=== PATIENT | male | born 1975 | race Caucasian/White ===

== ENCOUNTER 2019-02-19 12:42 | Emergency (ER) | payer BC ==
[2019-02-19] MEDS ORDERED: Sodium Chloride 0.9% 10 ML Syringe FLUSH PRN (12:50)
[2019-02-19] MEDS ORDERED: HYDROmorphone 1 MG/ML Syringe IVPUSH ONE (12:50)
[2019-02-19] MEDS ORDERED: Alum Hydrox/Mag Hydrox/Simeth 30 ML, Lidocaine 2% 15 ML PO ONE ×2 (12:51)
[2019-02-19] MEDS ORDERED: Famotidine 20 MG/2 ML SDV IVPUSH ONE (12:51)
[2019-02-19 12:54] VITALS: BP 161/140; PULSE 86
--- NOTE | 2019-02-19 14:02 | CR ---
Chest: 2 views of the chest were obtained. Comparison: No previous chest x-ray is available. Heart size and mediastinum are normal. Lungs are clear with no acute parenchymal change. Slight degenerative change is scattered within the spine. Impression: 1. Nothing acute is seen on 2 view chest x-ray. Diagnostic code #1 This report was dictated in [place] Standard Time
--- NOTE | 2019-02-19 14:38 | EDM.PDOC ---
ED HPI GENERAL MEDICAL PROBLEM - General Chief Complaint: Chest Pain Stated Complaint: [facility] Time Seen by Provider: 02/19/19 12:45 Source of Information: Reports: Patient, EMS, Provider History Limitations: Reports: No Limitations - History of Present Illness INITIAL COMMENTS - FREE TEXT/NARRATIVE: The patient presents by [facility] from the occupational health clinic for chest pain. The patient was traveling to a follow up appointment for his elbow when he developed chest pain. He has shortness of breath with it. The pain is in the mid chest and to the left. It is pressure like and sharp. He has no fever, chills or cough. He has no history of PA. He has no history of hypertension or hypercholesterolemia. The patient quit smoking yesterday. He had to negative EKGs at the clinic. He got aspirin, morphine and nitro by EMS. Onset: Gradual Duration: Hour(s): Location: Reports: Chest Quality: Reports: Pressure, Sharp Severity: Severe Improves with: Reports: None Worsens with: Reports: None Associated Symptoms: Reports: Chest Pain, Shortness of Breath. Denies: Cough, Fever/Chills, Headaches, Nausea/Vomiting Middle Chest Pain Score (Numeric/FACES): 9 - Related Data Allergies Allergy/AdvReac Type Severity Reaction Status Date / Time No Known Allergies Allergy Verified 02/19/19 12:54 Home Meds: Home Meds Sulindac 150 mg PO BID #20 tablet 02/19/19 [Rx] Past Medical History - Past Health History Medical/Surgical History: Denies Medical/Surgical History HEENT History: Reports: Hard of Hearing Genitourinary History: Reports: Renal Calculus Musculoskeletal History: Reports: Fracture (nose, ribs, fingers, and bilateral tibias) Neurological History: Reports: Other (See Below) Other Neuro History: childhood menengitis Endocrine/Metabolic History: Reports: Obesity/BMI 30+ - Infectious Disease History Infectious Disease History: Reports: Meningitis - Past Surgical History HEENT Surgical History: Reports: Tonsillectomy, Other (See Below) Other HEENT Surgeries/Procedures: mastoid removal GI Surgical History: Reports: ERCP Musculoskeletal Surgical History: Reports: Other (See Below) Other Musculoskeletal Surgeries/Procedures:: knee surgery Social & Family History - Family History Family Medical History: Noncontributory - Tobacco Use Smoking Status *Q: Current Every Day Smoker Years of Tobacco use: 4 Packs/Tins Daily: 0.5 - Caffeine Use Caffeine Use: Reports: Soda Caffeine Use Comment: occationally - Recreational Drug Use Recreational Drug Use: No - Living Situation & Occupation Living situation: Reports: , with Spouse, with Family (2 kids) Occupation: Employed ([employer]) ED ROS GENERAL - Review of Systems Review Of Systems: See Below Constitutional: Reports: No Symptoms HEENT: Reports: No Symptoms Respiratory: Reports: Shortness of Breath Cardiovascular: Reports: Chest Pain Endocrine: Reports: No Symptoms GI/Abdominal: Reports: No Symptoms : Reports: No Symptoms Musculoskeletal: Reports: No Symptoms Skin: Reports: No Symptoms ED EXAM, GENERAL - Physical Exam Exam: See Below Exam Limited By: No Limitations General Appearance: Alert, No Apparent Distress Ears: Normal External Exam Nose: Normal Inspection Head: Atraumatic, Normocephalic Neck: Normal Inspection Respiratory/Chest: No Respiratory Distress, Lungs Clear, Normal Breath Sounds Cardiovascular: Regular Rate, Rhythm, No Edema, No Murmur GI/Abdominal: Soft, Non-Tender, No Organomegaly, No Mass Back Exam: Normal Inspection Extremities: Normal Inspection EKG INTERPRETATION EKG Date: 02/19/19 Time: 12:45 Rhythm: Other (Sinus tachycardia) Rate (Beats/Min): 107 [place]: Normal P-Wave: Present QRS: Normal ST-T: Normal QT: Normal Course - Vital Signs Last Recorded V/S: Last Vital Signs Temp 97.5 F 02/19/19 12:47 Pulse 86 02/19/19 12:47 Resp 20 02/19/19 12:47 BP 161/140 H 02/19/19 12:47 Pulse Ox 96 02/19/19 12:47 - Orders/Labs/Meds Orders: Active Orders 24 hr Category Date Time Status Cardiac Monitoring [RC] . DIRECTED Care 02/19/19 12:50 Active EKG Documentation Completion [RC] ASDIRECTED Care 02/19/19 14:38 Active EKG Documentation Completion [RC] ASDIRECTED Care 02/19/19 14:39 Inactive Oxygen Therapy [RC] PRN Care 02/19/19 12:50 Active Peripheral IV Care [RC] . DIRECTED Care 02/19/19 12:50 Active Sodium Chloride 0.9% [Saline Flush] Med 02/19/19 12:50 Active 10 ml FLUSH ASDIRECTED PRN Peripheral IV Insertion Adult [OM.PC] Stat Oth 02/19/19 12:50 Ordered EKG 12 Lead [EK] Stat Ther 02/19/19 14:38 Ordered EKG 12 Lead [EK] Stat Ther 02/19/19 14:39 Stop Req Medication Orders Sodium Chloride (Saline Flush) 10 ml FLUSH ASDIRECTED PRN PRN Reason: Keep Vein Open Last Admin: 02/19/19 13:10 Dose: 10 ml Labs: Laboratory Tests 02/19/19 02/19/19 02/19/19 Range/Units 13:55 13:55 13:55 WBC 7.10 (4.23-9.07) K/mm3 RBC 4.46 L (4.63-6.08) M/mm3 Hgb 14.1 (13.7-17.5) gm/dl Hct 41.0 (40.1-51.0) % MCV 91.9 (79.0-92.2) fl MCH 31.6 (25.7-32.2) pg MCHC 34.4 (32.2-35.5) g/dl RDW Std Deviation 39.9 (35.1-43.9) fL Plt Count 266 (163-337) K/mm3 MPV 9.5 (9.4-12.3) fl Neut % (Auto) 57.7 (34.0-67.9) % Lymph % (Auto) 29.9 (21.8-53.1) % [place] % (Auto) 8.5 (5.3-12.2) % Eos % (Auto) 3.2 (0.8-7.0) Baso % (Auto) 0.4 (0.1-1.2) % Neut # (Auto) 4.10 (1.78-5.38) K/mm3 Lymph # (Auto) 2.12 (1.32-3.57) K/mm3 [place] # (Auto) 0.60 (0.30-0.82) K/mm3 Eos # (Auto) 0.23 (0.04-0.54) K/mm3 Baso # (Auto) 0.03 (0.01-0.08) K/mm3 D-Dimer, Quantitative 0.21 (0.19-0.50) mg/L Sodium 139 (136-145) mEq/L Potassium 3.8 (3.5-5.1) mEq/L Chloride 103 (98-107) mEq/L Carbon Dioxide 29 (21-32) mEq/L Anion Gap 10.8 (5-15) BUN 13 (7-18) mg/dL Creatinine 0.8 (0.7-1.3) mg/dL Est Cr Clr Drug Dosing 135.57 mL/min Estimated GFR (MDRD) > 60 (>60) mL/min BUN/Creatinine Ratio 16.3 (14-18) Glucose 110 H (74-106) mg/dL Calcium 8.9 (8.5-10.1) mg/dL Total Bilirubin 0.2 (0.2-1.0) mg/dL AST 14 L (15-37) U/L ALT 48 (16-63) U/L Alkaline Phosphatase 56 (46-116) U/L Troponin I < 0.017 (0.00-0.056) ng/mL Total Protein 7.0 (6.4-8.2) g/dl Albumin 3.8 (3.4-5.0) g/dl Globulin 3.2 gm/dL Albumin/Globulin Ratio 1.2 (1-2) 02/19/19 Range/Units 15:36 WBC (4.23-9.07) K/mm3 RBC (4.63-6.08) M/mm3 Hgb (13.7-17.5) gm/dl Hct (40.1-51.0) % MCV (79.0-92.2) fl MCH (25.7-32.2) pg MCHC (32.2-35.5) g/dl RDW Std Deviation (35.1-43.9) fL Plt Count (163-337) K/mm3 MPV (9.4-12.3) fl Neut % (Auto) (34.0-67.9) % Lymph % (Auto) (21.8-53.1) % [place] % (Auto) (5.3-12.2) % Eos % (Auto) (0.8-7.0) Baso % (Auto) (0.1-1.2) % Neut # (Auto) (1.78-5.38) K/mm3 Lymph # (Auto) (1.32-3.57) K/mm3 [place] # (Auto) (0.30-0.82) K/mm3 Eos # (Auto) (0.04-0.54) K/mm3 Baso # (Auto) (0.01-0.08) K/mm3 D-Dimer, Quantitative (0.19-0.50) mg/L Sodium (136-145) mEq/L Potassium (3.5-5.1) mEq/L Chloride (98-107) mEq/L Carbon Dioxide (21-32) mEq/L Anion Gap (5-15) BUN (7-18) mg/dL Creatinine (0.7-1.3) mg/dL Est Cr Clr Drug Dosing mL/min Estimated GFR (MDRD) (>60) mL/min BUN/Creatinine Ratio (14-18) Glucose (74-106) mg/dL Calcium (8.5-10.1) mg/dL Total Bilirubin (0.2-1.0) mg/dL AST (15-37) U/L ALT (16-63) U/L Alkaline Phosphatase (46-116) U/L Troponin I < 0.017 (0.00-0.056) ng/mL Total Protein (6.4-8.2) g/dl Albumin (3.4-5.0) g/dl Globulin gm/dL Albumin/Globulin Ratio (1-2) Meds: Medications Generic Name Dose Route Start Last Admin Trade Name Freq PRN Reason Stop Dose Admin Sodium Chloride 10 ml 02/19/19 12:50 02/19/19 13:10 Saline Flush FLUSH 10 ml ASDIRECTED PRN Administration Keep Vein Open Discontinued Medications Generic Name Dose Route Start Last Admin Trade Name Freq PRN Reason Stop Dose Admin Al Hydroxide/Mg Hydroxide 30 0 ml 02/19/19 12:51 02/19/19 13:08 ml/ Lidocaine HCl 15 ml PO 02/19/19 12:52 45 ml ONETIME ONE Administration Famotidine 20 mg 02/19/19 12:51 02/19/19 13:08 Pepcid IVPUSH 02/19/19 12:52 20 mg ONETIME ONE Administration Fentanyl 100 mcg 02/19/19 16:52 02/19/19 17:04 Sublimaze IVPUSH 02/19/19 16:53 100 mcg ONETIME ONE Administration Glucagon 1 mg 02/19/19 18:38 02/19/19 18:57 Glucagen IVPUSH 02/19/19 18:39 1 mg ONETIME ONE Administration Hydromorphone HCl 1 mg 02/19/19 12:50 02/19/19 13:09 Dilaudid IVPUSH 02/19/19 12:51 1 mg ONETIME ONE Administration Hydromorphone HCl 0.5 mg 02/19/19 14:59 02/19/19 15:18 Dilaudid IVPUSH 02/19/19 15:00 0.5 mg ONETIME ONE Administration Lorazepam 1 mg 02/19/19 14:39 02/19/19 15:17 Ativan IVPUSH 02/19/19 14:40 1 mg ONETIME ONE Administration Sulindac 150 mg 02/19/19 18:38 02/19/19 18:58 Clinoril PO 02/19/19 18:39 150 mg ONETIME ONE Administration - Re-Assessments/Exams Free Text/Narrative Re-Assessment/Exam: 02/19/19 14:37 I ordered an IV saline lock, EKG, CXR, labs, dilaudid 1mg IV. His EKG shows a NSR with no acute changes. His CXR looks good. His CBC and CMP look good. His troponin and D-dimer are negative. 02/19/19 19:07 He had more pain so I ordered another EKG and that looks good. I also ordered a repeat troponin and that looks good. He says his pain is not any better so I gave him some fentanyl. I also gave him pepcid and a GI cocktail. I do not feel this is cardiac. The patient says he will not leave until the pain is gone. I gave him some ativan. I consulted Dr Parker and she came to see the patient and she agreed that that this is not his heart or his lungs but chest wall pain. She recommended some glucogon and sulindac and antiinflammatory. I will discharge him home. Departure - Departure Time of Disposition: 19:15 Disposition: Home, Self-Care 01 Condition: Good Clinical Impression: Chest wall pain Prescriptions: Sulindac 150 mg PO BID #20 tablet Referrals: PCP,None [Primary Care Provider] - Kate Morales PA-C [Physician Special Police Officer] - 1 Week Forms: ED Department Discharge Additional Instructions: Take the sulindac 2 times per day for 10 days. Take the medicine with food. It may upset your stomach. Follow up with your doctor or Kate Morales within a week. Please return if you are worse. - My Orders Last 24 Hours: My Active Orders 02/19/19 12:50 Cardiac Monitoring [RC] . DIRECTED Oxygen Therapy [RC] PRN Peripheral IV Care [RC] . DIRECTED Sodium Chloride 0.9% [Saline Flush] 10 ml FLUSH ASDIRECTED PRN Peripheral IV Insertion Adult [OM.PC] Stat 02/19/19 14:38 EKG Documentation Completion [RC] ASDIRECTED EKG 12 Lead [EK] Stat 02/19/19 14:39 EKG Documentation Completion [RC] ASDIRECTED EKG 12 Lead [EK] Stat - Assessment/Plan Last 24 Hours: My Active Orders 02/19/19 12:50 Cardiac Monitoring [RC] . DIRECTED Oxygen Therapy [RC] PRN Peripheral IV Care [RC] . DIRECTED Sodium Chloride 0.9% [Saline Flush] 10 ml FLUSH ASDIRECTED PRN Peripheral IV Insertion Adult [OM.PC] Stat 02/19/19 14:38 EKG Documentation Completion [RC] ASDIRECTED EKG 12 Lead [EK] Stat 02/19/19 14:39 EKG Documentation Completion [RC] ASDIRECTED EKG 12 Lead [EK] Stat
[2019-02-19] MEDS ORDERED: LORazepam 2 MG/ML SDV IVPUSH ONE (14:39)
[2019-02-19] MEDS ORDERED: HYDROmorphone 0.5 MG/0.5 ML Syringe IVPUSH ONE (14:59)
[2019-02-19] MEDS ORDERED: fentaNYL 100 MCG/2 ML SDV IVPUSH ONE (16:52)
[2019-02-19] MEDS ORDERED: Glucagon,Human Recombinant 1 MG Vial IVPUSH ONE (18:38)
== END 2019-02-19 19:33 | disposition home or self-care (01) ==
LOC: JD.ED 12:42
DX: R07.89 Other chest pain (principal); E66.9 Obesity, unspecified; Z68.35 Body mass index [BMI] 35.0-35.9, adult; Z87.891 Personal history of nicotine dependence
CPT/HCPCS: 36415; 71046; 80053; 84484; 85025; 85379; 93005; 96374; 96375; 96376; 99285; A9270; J1170; J1610; J2060; J3010; J3490; 93010; 99284

== ENCOUNTER 2019-08-31 19:37 | Emergency (ER) | payer OTHER, BC ==
[2019-08-31] MEDS ORDERED: Morphine 4 MG/ML Syringe IM ONE (20:00)
[2019-08-31 20:03] VITALS: BP 151/90; PULSE 88
--- NOTE | 2019-08-31 20:43 | EDM.PDOC ---
ED HPI GENERAL MEDICAL PROBLEM - General Chief Complaint: Upper Extremity Injury/Pain Stated Complaint: left hand injury at work caught between valve Time Seen by Provider: 08/31/19 19:46 Source of Information: Reports: Patient History Limitations: Reports: No Limitations - History of Present Illness INITIAL COMMENTS - FREE TEXT/NARRATIVE: TRIAGE NOTE -- Pt got his hand slammed between a tank and a valve at 1700 today. Swelling and pain to the top of hand and states he cannot move his fingers. Numbness and tingling to index and pointer finger. [ End ] The injury happened about 2 hours prior to arrival. No readily identified risk factors otherwise. No treatment or other intervention or measures to moderate symptoms prior to arrival. As noted the patient complains of the swelling and inability to move his fingers apparently due to pain. Left Hand Pain Score (Numeric/FACES): 9 - Related Data Allergies Allergy/AdvReac Type Severity Reaction Status Date / Time No Known Allergies Allergy Verified 08/31/19 19:54 Home Meds: Home Meds oxyCODONE HCl/Acetaminophen [Percocet 7.5-325 mg Tablet] 1 each PO Q6H PRN #12 tablet 08/31/19 [Rx] Past Medical History - Past Health History Medical/Surgical History: Denies Medical/Surgical History HEENT History: Reports: Hard of Hearing Genitourinary History: Reports: Renal Calculus Musculoskeletal History: Reports: Fracture Neurological History: Reports: Other (See Below) Other Neuro History: childhood menengitis Endocrine/Metabolic History: Reports: Obesity/BMI 30+ - Infectious Disease History Infectious Disease History: Reports: Chicken Pox, Measles, Mumps - Past Surgical History HEENT Surgical History: Reports: Tonsillectomy, Other (See Below) Other HEENT Surgeries/Procedures: mastoid removal GI Surgical History: Reports: ERCP Musculoskeletal Surgical History: Reports: Other (See Below) Other Musculoskeletal Surgeries/Procedures:: knee surgery Social & Family History - Family History Family Medical History: Noncontributory - Tobacco Use Smoking Status *Q: Former Smoker Used Tobacco, but Quit: Yes Month/Year Tobacco Last Used: 10 years ago - Caffeine Use Caffeine Use: Reports: Coffee Caffeine Use Comment: occationally - Recreational Drug Use Recreational Drug Use: No - Living Situation & Occupation Living situation: Reports: , with Spouse, with Family (2 kids) Occupation: Employed ([employer]) Review of Systems - Review of Systems Review Of Systems: Comprehensive ROS is negative, except as noted in HPI. ED EXAM, GENERAL - Physical Exam Exam: See Below Exam Limited By: No Limitations General Appearance: Alert, WD/WN, No Apparent Distress (But quite uncomfortable) Eye Exam: Bilateral Eye: EOMI, PERRL Ears: Normal External Exam Nose: Normal Inspection Throat/Mouth: Normal Inspection Head: Atraumatic, Normocephalic Neck: Normal Inspection, Supple Respiratory/Chest: No Respiratory Distress, Lungs Clear, Normal Breath Sounds Cardiovascular: Regular Rate, Rhythm GI/Abdominal: Soft, Non-Tender Back Exam: Normal Inspection Extremities: Normal Inspection (Except as noted below), Other (Left hand is quite edematous across the dorsum. No gross deformity. No instability noted. No obvious tendon deficit. Extremity is warm. No ecchymosis. No broken skin. Any movement of the fingers except for the thumb quite painful for the patient. Adequate capillary refill normal color of the extremity.) Neurological: Alert, Oriented, Normal Cognition, No Motor/Sensory Deficits Psychiatric: Normal Affect, Normal Mood Skin Exam: Warm, Dry Course - Vital Signs Last Recorded V/S: Last Vital Signs Temp 37.2 C 08/31/19 19:55 Pulse 88 08/31/19 19:55 Resp 16 08/31/19 19:55 BP 151/90 H 08/31/19 19:55 Pulse Ox 97 08/31/19 19:55 - Orders/Labs/Meds Orders: Active Orders 24 hr Category Date Time Status Hand Comp Min 3V Lt [CR] Stat Exams 08/31/19 19:55 Taken Labs: Laboratory Tests 08/31/19 08/31/19 Range/Units 20:43 20:43 WBC 7.45 (4.23-9.07) K/mm3 RBC 4.36 L (4.63-6.08) M/mm3 Hgb 13.9 (13.7-17.5) gm/dl Hct 40.4 (40.1-51.0) % MCV 92.7 H (79.0-92.2) fl MCH 31.9 (25.7-32.2) pg MCHC 34.4 (32.2-35.5) g/dl RDW Std Deviation 42.1 (35.1-43.9) fL Plt Count 264 (163-337) K/mm3 MPV 9.9 (9.4-12.3) fl Neutrophils % (Manual) 42 (40-60) % Band Neutrophils % 0 (0-10) % Lymphocytes % (Manual) 40 (20-40) % Atypical Lymphs % 3 % Monocytes % (Manual) 10 (2-10) % Eosinophils % (Manual) 4 (0.8-7.0) % Basophils % (Manual) 1 (0.2-1.2) Platelet Estimate Adequate RBC Morph Comment Normal Sodium 143 (136-145) mEq/L Potassium 3.8 (3.5-5.1) mEq/L Chloride 105 (98-107) mEq/L Carbon Dioxide 30 (21-32) mEq/L Anion Gap 11.8 (5-15) BUN 18 (7-18) mg/dL Creatinine 1.0 (0.7-1.3) mg/dL Est Cr Clr Drug Dosing 108.46 mL/min Estimated GFR (MDRD) > 60 (>60) mL/min BUN/Creatinine Ratio 18.0 (14-18) Glucose 112 H (74-106) mg/dL Calcium 8.8 (8.5-10.1) mg/dL Total Bilirubin 0.4 (0.2-1.0) mg/dL AST 30 (15-37) U/L ALT 45 (16-63) U/L Alkaline Phosphatase 63 (46-116) U/L CK-MB (CK-2) 3.5 (0-3.6) ng/ml Total Protein 7.4 (6.4-8.2) g/dl Albumin 4.1 (3.4-5.0) g/dl Globulin 3.3 gm/dL Albumin/Globulin Ratio 1.2 (1-2) Meds: Medications Discontinued Medications Generic Name Dose Route Start Last Admin Trade Name Freq PRN Reason Stop Dose Admin Morphine Sulfate 4 mg 08/31/19 20:00 08/31/19 20:16 Morphine IM 08/31/19 20:01 4 mg ONETIME ONE Administration - Re-Assessments/Exams Free Text/Narrative Re-Assessment/Exam: 08/31/19 21:53 The patient has a crush injury of his left hand. There is no open wound and no obvious fracture on x-ray. No salient lab abnormals, CK is within the reference range. Discussed fully with patient. Patient placed in bulky dressing. Keep cold pack in place for 24 hours at least. Keep hand elevated above level of heart. Referred to orthopedist. See instructions below. Departure - Departure Time of Disposition: 21:58 Disposition: Home, Self-Care 01 Condition: Good Clinical Impression: Crushing injury of left hand excluding fingers - Discharge Information *PRESCRIPTION DRUG MONITORING PROGRAM REVIEWED*: Not Applicable *COPY OF PRESCRIPTION DRUG MONITORING REPORT IN PATIENT LIZBETH: Not Applicable Prescriptions: oxyCODONE HCl/Acetaminophen [Percocet 7.5-325 mg Tablet] 1 each PO Q6H PRN #12 tablet PRN Reason: Pain (Moderate 4-6) Referrals: PCP,None [Primary Care Provider] - Preston Garcia MD [Physician] - Forms: ED Department Discharge Additional Instructions: You have been seen for a crush injury of your left hand. There is no obvious fracture on x-ray and we will notify you if radiologist identifies something that we had not noticed tonight. Keep the bulky dressing in place on your hand. Keep your hand elevated above the level of the heart. Keep the cold pack in place for at least 24 hours. You have been referred to the orthopedist document control assistant. Call in the morning and arrange follow-up. It is very important that you have follow-up to make sure that there is not going to be a complication such as infection setting and in the hand. If there is redness increased pain any increased swelling or if there is no incremental resolution of the pain and swelling return to ER or seek attention from your orthopedist but have it taken care off and be seen right away for that kind of problem. Also if there is fever or any other symptom of acute illness return to ER right away. Sepsis Event Note (ED) - Evaluation Sepsis Screening Result: No Definite Risk - Focused Exam Vital Signs: Vital Signs Temp Pulse Resp BP Pulse Ox 08/31/19 19:55 37.2 C 88 16 151/90 H 97 - My Orders Last 24 Hours: My Active Orders 08/31/19 19:55 Hand Comp Min 3V Lt [CR] Stat - Assessment/Plan Last 24 Hours: My Active Orders 08/31/19 19:55 Hand Comp Min 3V Lt [CR] Stat
[2019-08-31] MEDS ORDERED: Ketorolac 60 MG/2 ML SDV IM ONE (22:02)
--- NOTE | 2019-09-01 08:37 | CR ---
Left hand: 4 views of the left hand were obtained. Comparison: No prior hand exam. Soft tissue swelling is identified. Deformity is identified within the base of the proximal phalanx of the thumb most likely relating to old injury. No acute fracture, dislocation or other bony abnormality is appreciated. Impression: 1. Soft tissue swelling. 2. Old appearing injury as noted above within the thumb. 3. No acute bony abnormality is appreciated. Diagnostic code #2 This report was dictated in MDT
== END 2019-08-31 22:11 | disposition home or self-care (01) ==
LOC: JD.ED 19:37
DX: S67.22XA Crushing injury of left hand, initial encounter (principal); E66.9 Obesity, unspecified; Z68.36 Body mass index [BMI] 36.0-36.9, adult; Z87.891 Personal history of nicotine dependence; W23.0XXA Caught, crushed, jammed, or pinched between moving objects, initial encounter
CPT/HCPCS: 36415; 73130; 80053; 82553; 85007; 85027; 96372; 99284; J1885; J2270; 99283

== ENCOUNTER 2020-02-05 19:46 | Emergency (ER) | payer BC, OTHER ==
[2020-02-05 19:58] VITALS: BP 159/90; PULSE 100
[2020-02-05] MEDS ORDERED: Ondansetron 4 MG/2 ML SDV IVPUSH ONE (20:12)
[2020-02-05] MEDS ORDERED: HYDROmorphone 0.5 MG/0.5 ML Syringe IVPUSH ONE ×2 (20:13→21:02)
[2020-02-05] MEDS ORDERED: Ketorolac 30 MG/ML SDV IVPUSH ONE (20:13)
[2020-02-05] MEDS ORDERED: Sodium Chloride 0.9% 1,000 ML IV SCH (20:15)
--- NOTE | 2020-02-05 20:23 | EDM.PDOC ---
ED HPI GENERAL MEDICAL PROBLEM - General Chief Complaint: Flank Pain Stated Complaint: POSSIBLE KIDNEY STONE Time Seen by Provider: 02/05/20 19:55 Source of Information: Reports: Patient History Limitations: Reports: No Limitations - History of Present Illness INITIAL COMMENTS - FREE TEXT/NARRATIVE: This is a 44-year-old male. He had onset of right flank pain about 630 this ev ening that has progressively worsened. He has a history of kidney stones in the past on the right side. He has had no nausea and vomiting no fever. He does have some mild burning on urination he is noted over the last day. He says the pains about a 9 out of 10 and he appears to be uncomfortable standing and bending over leaning on the bed. He denies any other acute symptoms. He states he just got over a Covid about 4 weeks ago. Right Flank Pain Score (Numeric/FACES): 9 - Related Data Allergies Allergy/AdvReac Type Severity Reaction Status Date / Time No Known Allergies Allergy Verified 02/05/20 19:57 Home Meds: Home Meds Orphenadrine [Norflex] 100 mg PO BID PRN #12 tab 02/05/20 [Rx] Past Medical History - Past Health History Medical/Surgical History: Denies Medical/Surgical History HEENT History: Reports: Hard of Hearing Genitourinary History: Reports: Renal Calculus Musculoskeletal History: Reports: Fracture Neurological History: Reports: Other (See Below) Other Neuro History: childhood menengitis Endocrine/Metabolic History: Reports: Obesity/BMI 30+ - Infectious Disease History Infectious Disease History: Reports: Chicken Pox, Measles, Mumps, Novel Coronavirus - Past Surgical History HEENT Surgical History: Reports: Tonsillectomy, Other (See Below) Other HEENT Surgeries/Procedures: mastoid removal GI Surgical History: Reports: ERCP Musculoskeletal Surgical History: Reports: Other (See Below) Other Musculoskeletal Surgeries/Procedures:: knee surgery Social & Family History - Family History Family Medical History: No Pertinent Family History - Tobacco Use Tobacco Use Status *Q: Never Tobacco User Second Hand Smoke Exposure: No - Caffeine Use Caffeine Use: Reports: None Caffeine Use Comment: occationally - Recreational Drug Use Recreational Drug Use: No - Living Situation & Occupation Living situation: Reports: , with Spouse, with Family (2 kids) Occupation: Employed ([employer]) ED ROS GENERAL - Review of Systems Review Of Systems: See Below Constitutional: Denies: Fever, Chills HEENT: Reports: No Symptoms Respiratory: Denies: Shortness of Breath, Cough Cardiovascular: Reports: No Symptoms Endocrine: Reports: No Symptoms GI/Abdominal: Denies: Abdominal Pain, Diarrhea, Nausea, Vomiting : Reports: No Symptoms Musculoskeletal: Reports: No Symptoms Skin: Reports: No Symptoms Neurological: Reports: No Symptoms Psychiatric: Reports: No Symptoms Hematologic/Lymphatic: Reports: No Symptoms ED EXAM, RENAL/ - Physical Exam Exam: See Below Exam Limited By: No Limitations General Appearance: Alert, WD/WN, Mild Distress Eye Exam: Bilateral Eye: Normal Inspection Ears: Normal External Exam Nose: Normal Inspection Throat/Mouth: Normal Voice, No Airway Compromise Head: Normocephalic Neck: Supple Respiratory/Chest: No Respiratory Distress, Lungs Clear, Normal Breath Sounds Cardiovascular: Regular Rate, Rhythm, No Murmur GI/Abdominal: Soft, Other (Obese) Back Exam: Normal Inspection, Full Range of Motion, Other (Positive CVAT on the right but not on the left) Extremities: Normal Inspection, Normal Range of Motion Neurological: Alert, Oriented Psychiatric: Normal Affect, Normal Mood Skin Exam: Warm, Dry Course - Vital Signs Last Recorded V/S: Last Vital Signs Temp Pulse 100 02/05/20 19:55 Resp 16 02/05/20 19:55 BP 159/90 H 02/05/20 19:55 Pulse Ox 96 02/05/20 19:55 - Orders/Labs/Meds Orders: Active Orders 24 hr Category Date Time Status Abdomen Pelvis wo Cont [CT] Stat Exams 02/05/20 20:14 Taken Sodium Chloride 0.9% [Normal Saline] 1,000 ml Med 02/05/20 20:15 Active IV ASDIRECTED Medication Orders Sodium Chloride (Normal Saline) 1,000 mls @ 1,000 mls/hr IV ASDIRECTED CHERRI Last Admin: 02/05/20 20:19 Dose: 1,000 mls/hr Documented by: CHRISTINE Labs: Laboratory Tests 02/05/20 02/05/20 Range/Units 20:23 20:34 WBC 5.78 (4.23-9.07) K/mm3 RBC 4.25 L (4.63-6.08) M/mm3 Hgb 13.3 L (13.7-17.5) gm/dl Hct 39.2 L (40.1-51.0) % MCV 92.2 (79.0-92.2) fl MCH 31.3 (25.7-32.2) pg MCHC 33.9 (32.2-35.5) g/dl RDW Std Deviation 41.3 (35.1-43.9) fL Plt Count 236 (163-337) K/mm3 MPV 10.2 (9.4-12.3) fl Neut % (Auto) 54.1 (34.0-67.9) % Lymph % (Auto) 29.1 (21.8-53.1) % [place] % (Auto) 11.8 (5.3-12.2) % Eos % (Auto) 4.3 (0.8-7.0) Baso % (Auto) 0.5 (0.1-1.2) % Neut # (Auto) 3.13 (1.78-5.38) K/mm3 Lymph # (Auto) 1.68 (1.32-3.57) K/mm3 [place] # (Auto) 0.68 (0.30-0.82) K/mm3 Eos # (Auto) 0.25 (0.04-0.54) K/mm3 Baso # (Auto) 0.03 (0.01-0.08) K/mm3 Urine Color Yellow (Yellow) Urine Appearance Slt cloudy H (Clear) Urine pH 7.0 (5.0-8.0) Ur Specific Graham 1.025 (1.005-1.030) Urine Protein Negative (Negative) Urine Glucose (UA) Negative (Negative) Urine Ketones Negative (Negative) Urine Occult Blood 2+ H (Negative) Urine Nitrite Negative (Negative) Urine Bilirubin Negative (Negative) Urine Urobilinogen 0.2 (0.2-1.0) Ur Leukocyte Esterase Negative (Negative) Urine RBC 40-50 H (0-5) /hpf Urine WBC 0-5 (0-5) /hpf Ur Squamous Epith Cells 0-5 (0-5) /hpf Urine Bacteria Few (FEW) /hpf Urine Mucus Few (FEW) /hpf Meds: Medications Generic Name Dose Route Start Last Admin Trade Name Freq PRN Reason Stop Dose Admin Sodium Chloride 1,000 mls @ 1,000 mls/hr 02/05/20 20:15 02/05/20 20:19 Normal Saline IV 1,000 mls/hr ASDIRECTED CHERRI Administration Discontinued Medications Generic Name Dose Route Start Last Admin Trade Name Phuong PRN Reason Stop Dose Admin Hydromorphone HCl 0.5 mg 02/05/20 20:13 02/05/20 20:21 Dilaudid IVPUSH 02/05/20 20:14 0.5 mg ONETIME ONE Administration Hydromorphone HCl 0.5 mg 02/05/20 21:02 02/05/20 21:07 Dilaudid IVPUSH 02/05/20 21:03 0.5 mg ONETIME ONE Administration Ketorolac Tromethamine 30 mg 02/05/20 20:13 02/05/20 20:20 Toradol IVPUSH 02/05/20 20:14 30 mg ONETIME ONE Administration Ondansetron HCl 4 mg 02/05/20 20:12 02/05/20 20:20 Zofran IVPUSH 02/05/20 20:13 4 mg ONETIME ONE Administration - Radiology Interpretation Free Text/Narrative:: CT scan of the abdomen and pelvis does not show any kidney stones. No hydronephrosis noted or perinephric stranding. No stones. - Re-Assessments/Exams Free Text/Narrative Re-Assessment/Exam: 02/05/20 21:52 Spoke to the patient regarding the CT scan. It looks like from his urine that he has passed a stone. I will give him a urine strainer so he can capture the stone when he urinates in the meantime he is to drink lots of fluids and take it easy for the next day. 02/05/20 22:12 The patient is having some muscle spasms in the back as well I will provide a muscle relaxer. He is to strain his urine with a urine strainer that I give him to capture the stone. Departure - Departure Time of Disposition: 22:12 Disposition: Home, Self-Care 01 Condition: Fair Clinical Impression: Right flank pain, Renal colic on right side, Muscle spasm of back Hematuria Qualifiers: Hematuria type: unspecified type Qualified Code(s): R31.9 - Hematuria, unspecified - Discharge Information *PRESCRIPTION DRUG MONITORING PROGRAM REVIEWED*: Not Applicable *COPY OF PRESCRIPTION DRUG MONITORING REPORT IN PATIENT LIZBETH: Not Applicable Prescriptions: Orphenadrine [Norflex] 100 mg PO BID PRN #12 tab PRN Reason: Spasms Instructions: Muscle Cramps and Spasms, [id number], Renal Colic, [id number] Referrals: PCP,None [Primary Care Provider] - Forms: ED Department Discharge, ED Return to Work/School Form Additional Instructions: Drink lots of fluids over the next few days to flush your kidneys, strain your urine with a urine strainer, for your back spasms take the Norflex twice a day but just be careful about driving because it can make you sleepy, follow-up with your family doctor later this week if needed. Sepsis Event Note (ED) - Evaluation Sepsis Screening Result: No Definite Risk - Focused Exam Vital Signs: Vital Signs Pulse Resp BP Pulse Ox 02/05/20 19:55 100 16 159/90 H 96 - My Orders Last 24 Hours: My Active Orders 02/05/20 20:14 Abdomen Pelvis wo Cont [CT] Stat 02/05/20 20:15 Sodium Chloride 0.9% [Normal Saline] 1,000 ml IV ASDIRECTED - Assessment/Plan Last 24 Hours: My Active Orders 02/05/20 20:14 Abdomen Pelvis wo Cont [CT] Stat 02/05/20 20:15 Sodium Chloride 0.9% [Normal Saline] 1,000 ml IV ASDIRECTED
--- NOTE | 2020-02-07 12:54 | CT ---
PROCEDURE INFORMATION: Exam: CT Abdomen And Pelvis Without Contrast Exam date and time: 02/05/2020 8:30 PM Age: 44 years old Clinical indication: Abdominal pain; Acute; Patient HX: Right flank pain onset today with HX of kidney stones, dizziness with movement TECHNIQUE: Imaging protocol: Computed tomography of the abdomen and pelvis without contrast. COMPARISON: No relevant prior studies available. FINDINGS: Lungs: There are no suspicious pulmonary nodules or areas of lung consolidation. Liver: There is mild fatty liver replacement. Gallbladder and bile ducts: No calcified gallstones. No ductal dilation. Pancreas: The pancreatic parenchyma is normal in bulk and sharply marginated. Duct is not dilated. No calcifications, masses, or abnormal fluid collections. Spleen: Spleen is normal in size. No mass or fluid collection. Adrenal glands: There are no adrenal masses. Kidneys and ureters: Normal in parenchymal bulk. No hydronephrosis or asymmetric perinephric stranding. No solid masses. No stones. Stomach and bowel: No significant abnormalities of the stomach. There are no dilated or thickened small bowel loops. Gas and stool are seen in the colon to the rectum. No mass. Appendix: The appendix is seen. It is normal. Intraperitoneal space: No ascites. No abscess. No inflammation within the intra- abdominal fat. No pneumoperitoneum. No mass. Vasculature: No aneurysm. Lymph nodes: There are no enlarged celiac, mesenteric, periportal, extraperitoneal or inguinal lymph nodes. Urinary bladder: There is no bladder wall thickening, mass, or calculus. Reproductive: Prostate gland is normal in size. The seminal vesicles are unremarkable. Bones/joints: Age appropriate. No acute fracture. No dislocation. There are no suspicious lytic or osteosclerotic lesions. Soft tissues: See "Intraperitoneal space" finding. IMPRESSION: 1. No sign of acute intra-abdominal pathology. 2. There is mild fatty liver replacement. Thank you for allowing us to participate in the care of your patient. Dictated and Authenticated by: Devin Dye MD 02/05/2020 9:59 PM Central Time ([place] & [place]) [facility]
== END 2020-02-05 22:27 | disposition home or self-care (01) ==
LOC: JD.ED 19:46
DX: N23 Unspecified renal colic (principal); M62.830 Muscle spasm of back; R31.9 Hematuria, unspecified; E66.9 Obesity, unspecified; Z68.35 Body mass index [BMI] 35.0-35.9, adult
CPT/HCPCS: 36415; 74176; 81001; 85025; 96374; 96375; 96376; 99284; J1170; J1885; J2405; J7030

== ENCOUNTER 2020-02-09 10:57 | Emergency (ER) | payer BC ==
[2020-02-09 11:08] VITALS: BP 153/110; PULSE 85
[2020-02-09] MEDS ORDERED: Aspirin 81 MG Tab.Chew PO ONE (11:22)
--- NOTE | 2020-02-09 11:29 | EDM.PDOC ---
ED HPI GENERAL MEDICAL PROBLEM - General Chief Complaint: Chest Pain Stated Complaint: CHEST PAIN Time Seen by Provider: 02/09/20 11:05 Source of Information: Reports: Patient, RN Notes Reviewed History Limitations: Reports: No Limitations - History of Present Illness INITIAL COMMENTS - FREE TEXT/NARRATIVE: Patient is a 44 year old male presenting to the ER with c/o intermittent chest pain since Friday. He was seen in this ER on Friday for a kidney stone which he is still having pain with as well. He states that he awoke Friday morning with midsternal chest pain which radiated into his left chest and arm. This episode lasted about 15 minute and the resolved. He had a similar episode Friday evening. He did well on Friday and Friday, but states that he awoke with pain again this morning. The episode lasted about 15 minutes and he has had one other episode today. Pain was not initially present upon arrival to ER, however, during my exam the pain did recur. He describes in as a sharp cramping sensation that shoots across his chest. States it "feels like someone snapped him with a rubberband". Pain is worsened by deep breathing but chest wall is not tender to palpation. He denies any cardiac history or a hx of GERD. Left Chest Pain Score (Numeric/FACES): 8 - Related Data Allergies Allergy/AdvReac Type Severity Reaction Status Date / Time No Known Allergies Allergy Verified 02/09/20 11:08 Home Meds: Home Meds Orphenadrine [Norflex] 100 mg PO BID PRN #12 tab 02/05/20 [Rx] Acetaminophen/HYDROcodone [[place] 325-5 MG] 1 tab PO Q4H PRN #10 tablet 02/09/20 [Rx] Naproxen [Naprosyn] 500 mg PO Q12HR 5 Days #10 tab 02/09/20 [Rx] Ondansetron [Zofran ODT] 4 mg PO Q6H PRN #10 tab.dis 02/09/20 [Rx] Orphenadrine [Norflex] 100 mg PO BID PRN #10 tab 02/09/20 [Rx] Past Medical History - Past Health History Medical/Surgical History: Denies Medical/Surgical History HEENT History: Reports: Hard of Hearing Genitourinary History: Reports: Renal Calculus Musculoskeletal History: Reports: Fracture Neurological History: Reports: Other (See Below) Other Neuro History: childhood menengitis Endocrine/Metabolic History: Reports: Obesity/BMI 30+ - Infectious Disease History Infectious Disease History: Reports: Chicken Pox, Measles, Mumps, Novel Coronavirus - Past Surgical History HEENT Surgical History: Reports: Tonsillectomy, Other (See Below) Other HEENT Surgeries/Procedures: mastoid removal GI Surgical History: Reports: ERCP Musculoskeletal Surgical History: Reports: Other (See Below) Other Musculoskeletal Surgeries/Procedures:: knee surgery Social & Family History - Family History Family Medical History: No Pertinent Family History - Tobacco Use Tobacco Use Status *Q: Never Tobacco User - Caffeine Use Caffeine Use: Reports: None Caffeine Use Comment: occationally - Recreational Drug Use Recreational Drug Use: No - Living Situation & Occupation Living situation: Reports: , with Spouse, with Family (2 kids) Occupation: Employed ([employer]) ED ROS GENERAL - Review of Systems Review Of Systems: See Below Constitutional: Reports: Diaphoresis. Denies: Fever, Chills, Weakness HEENT: Reports: No Symptoms Respiratory: Reports: No Symptoms. Denies: Shortness of Breath, Cough Cardiovascular: Reports: Chest Pain. Denies: Dyspnea on Exertion, Lightheadedness, Syncope Endocrine: Reports: No Symptoms GI/Abdominal: Reports: No Symptoms : Reports: Flank Pain Musculoskeletal: Reports: No Symptoms Skin: Reports: No Symptoms Neurological: Reports: No Symptoms Psychiatric: Reports: No Symptoms Hematologic/Lymphatic: Reports: No Symptoms Immunologic: Reports: No Symptoms ED EXAM, GENERAL - Physical Exam Exam: See Below Exam Limited By: No Limitations General Appearance: Alert, WD/WN, No Apparent Distress Respiratory/Chest: No Respiratory Distress, Lungs Clear, Normal Breath Sounds, No Accessory Muscle Use, Chest Non-Tender Cardiovascular: Normal Peripheral Pulses, Regular Rate, Rhythm, No Edema, No Gallop, No JVD, No Murmur, No Rub GI/Abdominal: Normal Bowel Sounds, Soft, Non-Tender, No Organomegaly, No Distention, No Abnormal Bruit, No Mass Neurological: Alert, Oriented, CN II-XII Intact, Normal Cognition, Normal Gait, Normal Reflexes, No Motor/Sensory Deficits Psychiatric: Normal Affect, Normal Mood Skin Exam: Warm, Dry, Intact, Normal Color, No Rash #1 Interpretation EKG Date: 02/09/20 Time: 11:06 Rhythm: NSR Rate (Beats/Min): 90 Doran: Normal P-Wave: Present QRS: Normal ST-T: Normal QT: Normal Course - Vital Signs Last Recorded V/S: Last Vital Signs Temp 97.7 F 02/09/20 11:04 Pulse 85 02/09/20 11:04 Resp 16 02/09/20 11:04 BP 153/110 H 02/09/20 11:04 Pulse Ox 94 L 02/09/20 11:04 - Orders/Labs/Meds Labs: Laboratory Tests 02/09/20 02/09/20 02/09/20 Range/Units 11:10 11:10 11:10 WBC 5.61 (4.23-9.07) K/mm3 RBC 4.47 L (4.63-6.08) M/mm3 Hgb 14.1 (13.7-17.5) gm/dl Hct 40.4 (40.1-51.0) % MCV 90.4 (79.0-92.2) fl MCH 31.5 (25.7-32.2) pg MCHC 34.9 (32.2-35.5) g/dl RDW Std Deviation 41.0 (35.1-43.9) fL Plt Count 262 (163-337) K/mm3 MPV 10.2 (9.4-12.3) fl Neut % (Auto) 53.7 (34.0-67.9) % Lymph % (Auto) 29.2 (21.8-53.1) % [place] % (Auto) 12.5 H (5.3-12.2) % Eos % (Auto) 4.1 (0.8-7.0) Baso % (Auto) 0.5 (0.1-1.2) % Neut # (Auto) 3.01 (1.78-5.38) K/mm3 Lymph # (Auto) 1.64 (1.32-3.57) K/mm3 [place] # (Auto) 0.70 (0.30-0.82) K/mm3 Eos # (Auto) 0.23 (0.04-0.54) K/mm3 Baso # (Auto) 0.03 (0.01-0.08) K/mm3 D-Dimer, Quantitative 0.33 (0.19-0.50) mg/L Sodium 138 (136-145) mEq/L Potassium 3.4 L (3.5-5.1) mEq/L Chloride 101 (98-107) mEq/L Carbon Dioxide 25 (21-32) mEq/L Anion Gap 15.4 H (5-15) BUN 20 H (7-18) mg/dL Creatinine 0.9 (0.7-1.3) mg/dL Est Cr Clr Drug Dosing 119.24 mL/min Estimated GFR (MDRD) > 60 (>60) mL/min BUN/Creatinine Ratio 22.2 H (14-18) Glucose 99 (74-106) mg/dL Calcium 9.0 (8.5-10.1) mg/dL Magnesium 2.0 (1.8-2.4) mg/dl Total Bilirubin 0.6 (0.2-1.0) mg/dL AST 48 H (15-37) U/L ALT 77 H (16-63) U/L Alkaline Phosphatase 70 (46-116) U/L Troponin I < 0.017 (0.00-0.056) ng/mL C-Reactive Protein 0.2 (<1.0) mg/dL Total Protein 8.1 (6.4-8.2) g/dl Albumin 4.4 (3.4-5.0) g/dl Globulin 3.7 gm/dL Albumin/Globulin Ratio 1.2 (1-2) 02/08/ Range/Units 13:30 WBC (4.23-9.07) K/mm3 RBC (4.63-6.08) M/mm3 Hgb (13.7-17.5) gm/dl Hct (40.1-51.0) % MCV (79.0-92.2) fl MCH (25.7-32.2) pg MCHC (32.2-35.5) g/dl RDW Std Deviation (35.1-43.9) fL Plt Count (163-337) K/mm3 MPV (9.4-12.3) fl Neut % (Auto) (34.0-67.9) % Lymph % (Auto) (21.8-53.1) % [place] % (Auto) (5.3-12.2) % Eos % (Auto) (0.8-7.0) Baso % (Auto) (0.1-1.2) % Neut # (Auto) (1.78-5.38) K/mm3 Lymph # (Auto) (1.32-3.57) K/mm3 [place] # (Auto) (0.30-0.82) K/mm3 Eos # (Auto) (0.04-0.54) K/mm3 Baso # (Auto) (0.01-0.08) K/mm3 D-Dimer, Quantitative (0.19-0.50) mg/L Sodium (136-145) mEq/L Potassium (3.5-5.1) mEq/L Chloride (98-107) mEq/L Carbon Dioxide (21-32) mEq/L Anion Gap (5-15) BUN (7-18) mg/dL Creatinine (0.7-1.3) mg/dL Est Cr Clr Drug Dosing mL/min Estimated GFR (MDRD) (>60) mL/min BUN/Creatinine Ratio (14-18) Glucose (74-106) mg/dL Calcium (8.5-10.1) mg/dL Magnesium (1.8-2.4) mg/dl Total Bilirubin (0.2-1.0) mg/dL AST (15-37) U/L ALT (16-63) U/L Alkaline Phosphatase (46-116) U/L Troponin I < 0.017 (0.00-0.056) ng/mL C-Reactive Protein (<1.0) mg/dL Total Protein (6.4-8.2) g/dl Albumin (3.4-5.0) g/dl Globulin gm/dL Albumin/Globulin Ratio (1-2) Meds: Medications Discontinued Medications Generic Name Dose Route Start Last Admin Trade Name Freq PRN Reason Stop Dose Admin Aspirin 324 mg 02/09/20 11:22 02/09/20 11:43 Aspirin PO 02/09/20 11:23 324 mg ONETIME ONE Administration Al Hydroxide/Mg Hydroxide 30 0 ml 02/09/20 11:54 02/09/20 12:02 ml/ Lidocaine HCl 15 ml PO 02/09/20 11:55 45 ml ONETIME ONE Administration Famotidine 20 mg 02/09/20 12:29 02/09/20 13:05 Pepcid IVPUSH 02/09/20 12:30 20 mg ONETIME ONE Administration Hydromorphone HCl 0.5 mg 02/09/20 11:48 02/09/20 12:01 Dilaudid IVPUSH 02/09/20 11:49 0.5 mg ONETIME ONE Administration Hydromorphone HCl 0.5 mg 02/09/20 12:30 02/09/20 13:03 Dilaudid IVPUSH 02/09/20 12:31 0.5 mg ONETIME ONE Administration Hydromorphone HCl 0.5 mg 02/09/20 14:15 02/09/20 14:34 Dilaudid IVPUSH 02/09/20 14:16 0.5 mg ONETIME ONE Administration Influenza Virus Vaccine 60 mcg 02/09/20 11:30 02/09/20 11:44 Fluzone Quad 0722-1879 Syringe IM 02/09/20 11:31 60 mcg .ONCE ONE Administration Ketorolac Tromethamine 30 mg 02/09/20 11:54 02/09/20 11:59 Toradol IVPUSH 02/09/20 11:55 30 mg ONETIME ONE Administration Lorazepam 0.5 mg 02/09/20 13:38 02/09/20 14:04 Ativan IVPUSH 02/09/20 13:39 0.5 mg ONETIME ONE Administration Ondansetron HCl 4 mg 02/09/20 11:48 02/09/20 11:59 Zofran IVPUSH 02/09/20 11:49 4 mg ONETIME ONE Administration Orphenadrine Citrate 100 mg 02/09/20 14:15 02/09/20 14:34 Norflex PO 100 mg BID CHERRI Administration - Re-Assessments/Exams Free Text/Narrative Re-Assessment/Exam: Patient is a 44-year-old male presenting to the emergency department with complaints of intermittent midsternal chest pain that "shoots across "his left chest. He has had a number of episodes of the last few days. He woke around 7 AM this morning with an episode last about 15 minutes. Symptoms did recur at the time of my exam. He has no cardiac history. Denies any history of GERD. I have ordered CBC, CMP, CRP, D-dimer, troponin, EKG, chest x-ray. Will give aspirin 324 mg. 02/09/20 1200 Patient continues to have chest discomfort. Work-up has been grossly unremarkable. Troponin less than 0.017, D-dimer 0.33, chest x-ray is unremarkable, EKG is normal. I have ordered Dilaudid 0.5 mg IV, Zofran 4 mg IV, Toradol 30 mg IV, and a GI cocktail. 02/09/20 1230 Patient continues to have pain despite the medications previously given. I have ordered Pepcid 20 mg IV as well as an additional Dilaudid 0.5 mg. He states that he feels like his stomach is turning. Review of his CT scan of the abdomen pelvis completed 4 days ago shows no aneurysms. We will complete repeat troponin at 1330. 02/09/20 14:29 Repeat troponin was also negative at less than 0.017. Patient continues to complain of discomfort and pain with breathing. Have ordered Ativan 0.5 mg IV as well as Dilaudid 0.5 mg IV and Norflex 100 mg p.o. We will let him eat some lunch and then reassess his pain. 02/09/20 15:41 Patient had some improvement in symptoms of the previous medications given. He was able to eat lunch without difficulty. Does still have some discomfort in his chest. I will write a prescription for Naprosyn, Zofran, Norflex, and [place]. Discussed return precautions. Discharge instructions as documented. Departure - Departure Time of Disposition: 15:41 Disposition: Home, Self-Care 01 Condition: Good Clinical Impression: Non-cardiac chest pain Prescriptions: Naproxen [Naprosyn] 500 mg PO Q12HR 5 Days #10 tab Acetaminophen/HYDROcodone [[place] 325-5 MG] 1 tab PO Q4H PRN #10 tablet PRN Reason: Pain Orphenadrine [Norflex] 100 mg PO BID PRN #10 tab PRN Reason: Muscle Spasm Ondansetron [Zofran ODT] 4 mg PO Q6H PRN #10 tab.dis PRN Reason: Nausea/Vomiting Instructions: Nonspecific Chest Pain, Adult, [id number] Referrals: PCP,None [Primary Care Provider] - Forms: ED Department Discharge, ED Return to Work/School Form Additional Instructions: You were seen in the emergency department today for intermittent chest pain over the course the last 3 days. Your work-up included blood work, an EKG of your heart, and a chest x-ray. Results of your work-up were found to be normal. You are not having a heart attack and did not have a blood clot in your lungs. As we discussed, the cause your pain is likely musculoskeletal in nature (muscle spasms/inflammation). While in the ER, you received a number of pain medications, as well as Zofran for nausea and Ativan for anxiety. A prescription for Naprosyn for pain, [place] for pain, Norflex which is a muscle relaxer, and Zofran for nausea has been sent to [facility]. Take these medications as prescribed. I would also recommend that you begin taking omeprazole, which is an antacid, daily. This may be purchased [id number]. Applying heat to your chest will often help improve the symptoms. If you experience worsening pain that does not improve with the medications provided, recommend that you return to the emergency department or follow-up in the clinic for reevaluation. Sepsis Event Note (ED) - Evaluation Sepsis Screening Result: No Definite Risk
[2020-02-09] MEDS ORDERED: FLU VACC QS2020-21(6MOS UP)/PF 60 MCG/0.5 ML SYRINGE IM ONE (11:30)
[2020-02-09] MEDS ORDERED: Ondansetron 4 MG/2 ML SDV IVPUSH ONE (11:48)
[2020-02-09] MEDS ORDERED: HYDROmorphone 0.5 MG/0.5 ML Syringe IVPUSH ONE ×3 (11:48→14:15)
[2020-02-09] MEDS ORDERED: Ketorolac 30 MG/ML SDV IVPUSH ONE (11:54)
[2020-02-09] MEDS ORDERED: Alum Hydrox/Mag Hydrox/Simeth 30 ML, Lidocaine 2% 15 ML PO ONE ×2 (11:54)
[2020-02-09] MEDS ORDERED: Famotidine 20 MG/2 ML SDV IVPUSH ONE (12:29)
--- NOTE | 2020-02-09 12:46 | CR ---
PROCEDURE INFORMATION: Exam: XR Chest, 2 Views Exam date and time: 02/09/2020 11:21 AM Age: 44 years old Clinical indication: Chest pain; Type not specified TECHNIQUE: Imaging protocol: XR of the chest Views: 2 views. COMPARISON: No relevant prior studies available. FINDINGS: Lungs: The lungs are normally expanded and clear. Pleural space: Normal. Heart/Mediastinum: Normal heart and cardiomediastinal silhouette. Vasculature: Normal pulmonary vessel caliber. Normal aorta. Bones/joints: The bones are intact. IMPRESSION: No acute disease or suspicious finding. Thank you for allowing us to participate in the care of your patient. Dictated and Authenticated by: Marcos Chauhan MD 02/09/2020 1:30 PM Central Time ([place] & [place]) [facility]
[2020-02-09] MEDS ORDERED: LORazepam 2 MG/ML SDV IVPUSH ONE (13:38)
[2020-02-09] MEDS ORDERED: Orphenadrine 100 MG Tab.ER PO SCH (14:15)
== END 2020-02-09 16:00 | disposition home or self-care (01) ==
LOC: JD.ED 10:57
DX: R07.89 Other chest pain (principal); E66.9 Obesity, unspecified; Z23 Encounter for immunization; Z68.37 Body mass index [BMI] 37.0-37.9, adult; Z79.899 Other long term (current) drug therapy
CPT/HCPCS: 36415; 71046; 80053; 83735; 84484; 85025; 85379; 86140; 90471; 90686; 93005; 96374; 96375; 96376; 99285; A9270; J1170; J1885; J2060; J2405; J3490; 93010; 99284; G0008

== ENCOUNTER 2020-02-19 16:06 | Emergency (ER) | payer BC ==
[2020-02-19 16:38] VITALS: BP 152/109; PULSE 90
--- NOTE | 2020-02-19 17:57 | EDM.PDOC ---
ED HPI GENERAL MEDICAL PROBLEM - General Chief Complaint: Respiratory Problem Stated Complaint: COUGHING BLOOD Time Seen by Provider: 02/19/20 16:33 Source of Information: Reports: Patient, RN Notes Reviewed - History of Present Illness INITIAL COMMENTS - FREE TEXT/NARRATIVE: 44 yr old male with onset of sore throat and cough yesterday, worse today. Frequent non productive cough that seems to be coming mostly from his throat. It is painful to swallow. No fever or chills. He had covid back in December about 6 weeks ago and recovered from that without difficulty. Throat Pain Score (Numeric/FACES): 7 - Related Data Allergies Allergy/AdvReac Type Severity Reaction Status Date / Time No Known Allergies Allergy Verified 02/09/20 11:08 Home Meds: Home Meds Albuterol Sulfate [Albuterol Sulfate Hfa] 8.5 gm IH Q4HR PRN #1 [email or web address] 02/19/20 [Rx] Azithromycin [Zithromax] 500 mg PO BID #10 tab 02/19/20 [Rx] Past Medical History - Past Health History Medical/Surgical History: Denies Medical/Surgical History HEENT History: Reports: Hard of Hearing Genitourinary History: Reports: Renal Calculus Musculoskeletal History: Reports: Fracture Neurological History: Reports: Other (See Below) Other Neuro History: childhood menengitis Endocrine/Metabolic History: Reports: Obesity/BMI 30+ - Infectious Disease History Infectious Disease History: Reports: Chicken Pox, Measles, Mumps, Novel Coronavirus - Past Surgical History HEENT Surgical History: Reports: Tonsillectomy, Other (See Below) Other HEENT Surgeries/Procedures: mastoid removal GI Surgical History: Reports: ERCP Musculoskeletal Surgical History: Reports: Other (See Below) Other Musculoskeletal Surgeries/Procedures:: knee surgery Social & Family History - Family History Family Medical History: No Pertinent Family History - Tobacco Use Tobacco Use Status *Q: Never Tobacco User - Caffeine Use Caffeine Use: Reports: Energy Drinks Caffeine Use Comment: occationally - Recreational Drug Use Recreational Drug Use: No - Living Situation & Occupation Living situation: Reports: , with Spouse, with Family (2 kids) Occupation: Employed ([employer]) ED ROS GENERAL - Review of Systems Review Of Systems: See Below Constitutional: Denies: Fever, Chills HEENT: Reports: Throat Pain. Denies: Rhinitis Respiratory: Reports: Cough. Denies: Shortness of Breath Cardiovascular: Denies: Chest Pain GI/Abdominal: Denies: Abdominal Pain, Diarrhea, Vomiting Musculoskeletal: Reports: No Symptoms Skin: Reports: No Symptoms Neurological: Reports: No Symptoms ED EXAM, GENERAL - Physical Exam Exam: See Below General Appearance: Alert, Other (frequent nonprod cough) Throat/Mouth: Inflammation (Pharynx moderately inflamed, no exudate) Neck: Supple Respiratory/Chest: No Respiratory Distress, Lungs Clear, Normal Breath Sounds. No: Rhonchi, Wheezing Cardiovascular: Regular Rate, Rhythm Extremities: Normal Inspection Neurological: Alert, Oriented, No Motor/Sensory Deficits Skin Exam: Warm, Dry, Normal Color Course - Vital Signs Last Recorded V/S: Last Vital Signs Temp 96.8 F L 02/19/20 16:36 Pulse 90 02/19/20 16:36 Resp 20 02/19/20 16:36 BP 152/109 H 02/19/20 16:36 Pulse Ox 98 02/19/20 16:36 - Orders/Labs/Meds Orders: Active Orders 24 hr Category Date Time Status Chest 1V Frontal [CR] Stat Exams 02/19/20 16:35 Taken CULTURE STREP A CONFIRMATION [RM] Stat Lab 02/19/20 16:45 Results STREP SCRN A RAPID W CULT CONF [RM] Stat Lab 02/19/20 16:45 Results - Re-Assessments/Exams Free Text/Narrative Re-Assessment/Exam: 02/19/20 18:28 CXR nl, rapid strep is neg. Discharge instr. as documented. Departure - Departure Time of Disposition: 17:51 Disposition: Home, Self-Care 01 Condition: Fair Clinical Impression: Bronchitis Pharyngitis Qualifiers: Pharyngitis/tonsillitis etiology: unspecified etiology Qualified Code(s): J02.9 - Acute pharyngitis, unspecified - Discharge Information Prescriptions: Albuterol Sulfate [Albuterol Sulfate Hfa] 8.5 gm IH Q4HR PRN #1 [email or web address] PRN Reason: Cough Azithromycin [Zithromax] 500 mg PO BID #10 tab Instructions: Upper Respiratory Infection, Adult, [id number], Pharyngitis, [id number] Referrals: PCP,None [Primary Care Provider] - Forms: ED Department Discharge Additional Instructions: Rest. Zithromax antibiotic, 500 mg twice daily for 5 days. The antibiotic is long acting, will stay in your system for 10 to 12 days. Albuterol inhaler 2 puffs q 4 to 6 hr for cough or any difficulty breathing. Prescriptions have been sent elctronically to [facility]. Follow up clinic as needed. Return to ED as needed if symptoms worsening or as needed. Sepsis Event Note (ED) - Evaluation Sepsis Screening Result: No Definite Risk - Focused Exam Vital Signs: Vital Signs Temp Pulse Resp BP Pulse Ox 02/19/20 16:36 96.8 F L 90 20 152/109 H 98 - My Orders Last 24 Hours: My Active Orders 02/19/20 16:35 Chest 1V Frontal [CR] Stat 02/19/20 16:45 CULTURE STREP A CONFIRMATION [RM] Stat STREP SCRN A RAPID W CULT CONF [RM] Stat - Assessment/Plan Last 24 Hours: My Active Orders 02/19/20 16:35 Chest 1V Frontal [CR] Stat 02/19/20 16:45 CULTURE STREP A CONFIRMATION [RM] Stat STREP SCRN A RAPID W CULT CONF [RM] Stat
--- NOTE | 2020-02-21 11:28 | CR ---
PROCEDURE INFORMATION: Exam: XR Chest, 1 View Exam date and time: 02/19/2020 4:22 PM Age: 44 years old Clinical indication: Cough and other: Hemoptysis TECHNIQUE: Imaging protocol: XR of the chest Views: 1 view. COMPARISON: DX Chest 2V 02/09/2020 11:21 AM FINDINGS: Lungs: Unremarkable. No consolidation. Pleural space: Unremarkable. No pleural effusion. No pneumothorax. Heart/Mediastinum: Unremarkable. No cardiomegaly. Bones/joints: Unremarkable. IMPRESSION: No acute findings. Thank you for allowing us to participate in the care of your patient. Dictated and Authenticated by: Elijah Dupree MD 02/19/2020 5:54 PM Central Time ([place] & [place]) CARLOS ENRIQUE
== END 2020-02-19 18:05 | disposition home or self-care (01) ==
LOC: JD.ED 16:06
DX: J02.9 Acute pharyngitis, unspecified (principal); J40 Bronchitis, not specified as acute or chronic; E66.9 Obesity, unspecified; Z68.36 Body mass index [BMI] 36.0-36.9, adult
CPT/HCPCS: 71045; 71045-26; 87081; 87430; 99283-25

== ENCOUNTER 2020-02-24 10:10 | Emergency (ER) | payer BC ==
[2020-02-24] MEDS ORDERED: Sodium Chloride 0.9% 10 ML Syringe FLUSH PRN (10:46)
[2020-02-24 11:36] VITALS: PULSE 74
[2020-02-24] MEDS ORDERED: HYDROmorphone 1 MG/ML Syringe IVPUSH ONE (11:52)
[2020-02-24 12:00] VITALS: BP 152/87
--- NOTE | 2020-02-24 12:09 | EDM.PDOC ---
ED HPI GENERAL MEDICAL PROBLEM - General Chief Complaint: Chest Pain Stated Complaint: CHEST PAIN Time Seen by Provider: 02/24/20 10:20 Source of Information: Reports: Patient History Limitations: Reports: No Limitations - History of Present Illness INITIAL COMMENTS - FREE TEXT/NARRATIVE: The patient presents with chest pain. This started about a week ago and he was evaluated here. Everything checked out okay. He has not gotten any better. The chest pain is in the mid chest and he is short of breath at times. He says the pain is in the mid chest. The pain is there all the time. He says what makes it better is stretching out his chest on his bed. He has no fever, chills, cough, congestion, runny nose, abdominal pain, nausea or vomiting. He does not smoke. He has no history of heart disease. He does not have hypertension or hypercholesterolemia. Onset: Gradual Duration: Week(s): Location: Reports: Chest Quality: Reports: Sharp Severity: Moderate Improves with: Reports: Other (stretching out his chest) Worsens with: Reports: None Associated Symptoms: Reports: Chest Pain. Denies: Cough, Fever/Chills, Headaches, Nausea/Vomiting, Shortness of Breath Chest Pain Score (Numeric/FACES): 8 - Related Data Allergies Allergy/AdvReac Type Severity Reaction Status Date / Time No Known Allergies Allergy Verified 02/24/20 10:27 Home Meds: Home Meds Hydrocodone/Acetaminophen [Hydrocodone-Acetamin 5-325 mg] 1 - 2 each PO Q6HR PRN #6 tablet 02/24/20 [Rx] Past Medical History - Past Health History Medical/Surgical History: Denies Medical/Surgical History HEENT History: Reports: Hard of Hearing Genitourinary History: Reports: Renal Calculus Musculoskeletal History: Reports: Fracture Neurological History: Reports: Other (See Below) Other Neuro History: childhood menengitis Endocrine/Metabolic History: Reports: Obesity/BMI 30+ - Infectious Disease History Infectious Disease History: Reports: Chicken Pox, Measles, Mumps, Novel Coronavirus - Past Surgical History HEENT Surgical History: Reports: Tonsillectomy, Other (See Below) Other HEENT Surgeries/Procedures: mastoid removal GI Surgical History: Reports: ERCP Musculoskeletal Surgical History: Reports: Other (See Below) Other Musculoskeletal Surgeries/Procedures:: knee surgery Social & Family History - Family History Family Medical History: No Pertinent Family History - Tobacco Use Tobacco Use Status *Q: Never Tobacco User - Caffeine Use Caffeine Use: Reports: Energy Drinks Caffeine Use Comment: occationally - Living Situation & Occupation Living situation: Reports: , with Spouse, with Family (2 kids) Occupation: Employed ([employer]) ED ROS GENERAL - Review of Systems Review Of Systems: See Below Constitutional: Reports: No Symptoms HEENT: Reports: No Symptoms Respiratory: Reports: Shortness of Breath. Denies: Cough Cardiovascular: Reports: Chest Pain Endocrine: Reports: No Symptoms GI/Abdominal: Reports: No Symptoms : Reports: No Symptoms ED EXAM, GENERAL - Physical Exam Exam: See Below Exam Limited By: No Limitations General Appearance: Alert, No Apparent Distress Ears: Normal External Exam Nose: Normal Inspection Head: Atraumatic, Normocephalic Neck: Normal Inspection Respiratory/Chest: No Respiratory Distress, Lungs Clear, Normal Breath Sounds Cardiovascular: Regular Rate, Rhythm, No Edema, No Murmur GI/Abdominal: Soft, Non-Tender, No Organomegaly, No Mass Back Exam: Normal Inspection Extremities: Normal Inspection #1 Interpretation EKG Date: 02/24/20 Time: 10:26 Rhythm: NSR Rate (Beats/Min): 77 [place]: Normal P-Wave: Present QRS: Normal ST-T: Other (Flattened T waves in the lateral leads) Course - Vital Signs Last Recorded V/S: Last Vital Signs Temp 97.8 F 02/24/20 10:24 Pulse 74 02/24/20 11:35 Resp 16 02/24/20 11:35 BP 152/87 H 02/24/20 11:45 Pulse Ox 95 02/24/20 11:35 - Orders/Labs/Meds Orders: Active Orders 24 hr Category Date Time Status Cardiac Monitoring [RC] . DIRECTED Care 02/24/20 10:46 Active EKG Documentation Completion [RC] STAT Care 02/24/20 10:46 Active Peripheral IV Care [RC] . DIRECTED Care 02/24/20 10:46 Active Chest 2V [CR] Stat Exams 02/24/20 10:46 Taken Sodium Chloride 0.9% [Saline Flush] Med 02/24/20 10:46 Active 10 ml FLUSH ASDIRECTED PRN Peripheral IV Insertion Adult [OM.PC] Stat Oth 02/24/20 10:46 Ordered Medication Orders Sodium Chloride (Saline Flush) 10 ml FLUSH ASDIRECTED PRN PRN Reason: Keep Vein Open Last Admin: 02/24/20 10:50 Dose: 10 ml Documented by: JOSE Labs: Laboratory Tests 02/24/20 02/24/20 02/24/20 Range/Units 10:28 10:28 10:28 WBC 5.92 (4.23-9.07) K/mm3 RBC 4.71 (4.63-6.08) M/mm3 Hgb 14.6 (13.7-17.5) gm/dl Hct 43.6 (40.1-51.0) % MCV 92.6 H (79.0-92.2) fl MCH 31.0 (25.7-32.2) pg MCHC 33.5 (32.2-35.5) g/dl RDW Std Deviation 43.3 (35.1-43.9) fL Plt Count 257 (163-337) K/mm3 MPV 10.3 (9.4-12.3) fl Neut % (Auto) 53.5 (34.0-67.9) % Lymph % (Auto) 31.6 (21.8-53.1) % Green % (Auto) 10.3 (5.3-12.2) % Eos % (Auto) 3.7 (0.8-7.0) Baso % (Auto) 0.7 (0.1-1.2) % Neut # (Auto) 3.17 (1.78-5.38) K/mm3 Lymph # (Auto) 1.87 (1.32-3.57) K/mm3 Green # (Auto) 0.61 (0.30-0.82) K/mm3 Eos # (Auto) 0.22 (0.04-0.54) K/mm3 Baso # (Auto) 0.04 (0.01-0.08) K/mm3 D-Dimer, Quantitative 0.30 (0.19-0.50) mg/L Sodium 140 (136-145) mEq/L Potassium 3.6 (3.5-5.1) mEq/L Chloride 102 (98-107) mEq/L Carbon Dioxide 28 (21-32) mEq/L Anion Gap 13.6 (5-15) BUN 17 (7-18) mg/dL Creatinine 0.9 (0.7-1.3) mg/dL Est Cr Clr Drug Dosing 119.24 mL/min Estimated GFR (MDRD) > 60 (>60) mL/min BUN/Creatinine Ratio 18.9 H (14-18) Glucose 93 (74-106) mg/dL Calcium 8.9 (8.5-10.1) mg/dL Total Bilirubin 0.6 (0.2-1.0) mg/dL AST 34 (15-37) U/L ALT 70 H (16-63) U/L Alkaline Phosphatase 73 (46-116) U/L Troponin I < 0.017 (0.00-0.056) ng/mL Total Protein 7.8 (6.4-8.2) g/dl Albumin 4.4 (3.4-5.0) g/dl Globulin 3.4 gm/dL Albumin/Globulin Ratio 1.3 (1-2) Meds: Medications Generic Name Dose Route Start Last Admin Trade Name Freq PRN Reason Stop Dose Admin Sodium Chloride 10 ml 02/24/20 10:46 02/24/20 10:50 Saline Flush FLUSH 10 ml ASDIRECTED PRN Administration Keep Vein Open Discontinued Medications Generic Name Dose Route Start Last Admin Trade Name Freq PRN Reason Stop Dose Admin Hydromorphone HCl 1 mg 02/24/20 11:52 Dilaudid IVPUSH 02/24/20 11:53 ONETIME ONE - Re-Assessments/Exams Free Text/Narrative Re-Assessment/Exam: 02/24/20 12:11 I ordered an EKG, CXR, labs and dilaudid 1mg IV. His EKG shows a NSR with no acute changes. His CXR looks good. His CBC and CMP look good. His D-dimer and troponin are negative. I will discharge him home with something for pain. Departure - Departure Time of Disposition: 12:15 Disposition: Home, Self-Care 01 Condition: Good Clinical Impression: Atypical chest pain Prescriptions: Hydrocodone/Acetaminophen [Hydrocodone-Acetamin 5-325 mg] 1 - 2 each PO Q6HR PRN #6 tablet PRN Reason: Pain Referrals: PCP,None [Primary Care Provider] - Brittany Potts RN REVIEW [Nurse Practitioner] - 1 Week Forms: ED Department Discharge, ED Return to Work/School Form Additional Instructions: Take motrin or tylenol for pain. If that does not help, try the hydrocodone. Follow up with Brittany Potts in our clinic. Please return if you are worse. Sepsis Event Note (ED) - Evaluation Sepsis Screening Result: No Definite Risk - Focused Exam Vital Signs: Vital Signs Temp Pulse Resp BP Pulse Ox 02/24/20 11:45 152/87 H 02/24/20 11:35 74 16 145/89 H 95 02/24/20 10:24 97.8 F 79 16 179/102 H 96 - My Orders Last 24 Hours: My Active Orders 02/24/20 10:46 Cardiac Monitoring [RC] . DIRECTED EKG Documentation Completion [RC] STAT Peripheral IV Care [RC] . DIRECTED Chest 2V [CR] Stat Sodium Chloride 0.9% [Saline Flush] 10 ml FLUSH ASDIRECTED PRN Peripheral IV Insertion Adult [OM.PC] Stat - Assessment/Plan Last 24 Hours: My Active Orders 02/24/20 10:46 Cardiac Monitoring [RC] . DIRECTED EKG Documentation Completion [RC] STAT Peripheral IV Care [RC] . DIRECTED Chest 2V [CR] Stat Sodium Chloride 0.9% [Saline Flush] 10 ml FLUSH ASDIRECTED PRN Peripheral IV Insertion Adult [OM.PC] Stat
--- NOTE | 2020-02-24 13:14 | CR ---
Chest: PA and lateral views of the chest were obtained. Comparison: Prior chest x-ray of 02/19/19. Findings: Heart and mediastinum: Heart size and mediastinum are normal. Lungs: Lungs are clear with no acute parenchymal change. Osseous: Scattered disc space narrowing noted within the spine with mild scoliosis. Impression: 1. Findings as noted above. 2. Nothing acute is seen. Diagnostic code #2
== END 2020-02-24 12:35 | disposition home or self-care (01) ==
LOC: JD.ED 10:10
DX: R07.89 Other chest pain (principal); E66.9 Obesity, unspecified; Z68.37 Body mass index [BMI] 37.0-37.9, adult
CPT/HCPCS: 36415; 71046; 80053; 84484; 85025; 85379; 93005; 96374; 99285; J1170; 93010; 99284

== ENCOUNTER 2020-05-15 12:12 | Emergency (ER) | payer BC ==
[2020-05-15] MEDS ORDERED: Sodium Chloride 0.9% 10 ML Syringe FLUSH PRN (12:34)
[2020-05-15] MEDS ORDERED: Alum Hydrox/Mag Hydrox/Simeth 30 ML, Lidocaine 2% 15 ML PO ONE ×2 (12:35)
--- NOTE | 2020-05-15 12:41 | EDM.PDOC ---
ED HPI GENERAL MEDICAL PROBLEM - General Chief Complaint: Chest Pain Stated Complaint: CHEST PAIN Time Seen by Provider: 05/15/20 12:29 Source of Information: Reports: Patient History Limitations: Reports: No Limitations - History of Present Illness INITIAL COMMENTS - FREE TEXT/NARRATIVE: 44-year-old male presents emergency department with complaints of chest pain that woke him this morning at 430. 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 He got off shift at about 1 AM this morning and ate a cheeseburger just before going to sleep. He states he woke up at 430 this morning with a pressure midsternal radiating to the left side of his chest. Patient states he has been diaphoretic with this and slightly nauseated. He does have audible expiratory wheezes noted bilaterally and he denies any respiratory issues or history. Denies any significant medical history and does not take any prescription medications. He states that he is still having the discomfort in his chest at the time of assessment. Any history of smoking. Chest Pain Score (Numeric/FACES): 8 - Related Data Allergies Allergy/AdvReac Type Severity Reaction Status Date / Time No Known Allergies Allergy Verified 05/15/20 12:28 Home Meds: Home Meds oxyCODONE HCl/Acetaminophen [Percocet 5-325 mg Tablet] 1 each PO Q6H PRN #10 tablet 05/15/20 [Rx] predniSONE [Prednisone] 20 mg PO DAILY #5 tablet 05/15/20 [Rx] Past Medical History - Past Health History Medical/Surgical History: Denies Medical/Surgical History HEENT History: Reports: Hard of Hearing Genitourinary History: Reports: Renal Calculus Musculoskeletal History: Reports: Fracture Neurological History: Reports: Other (See Below) Other Neuro History: childhood menengitis Endocrine/Metabolic History: Reports: Obesity/BMI 30+ - Infectious Disease History Infectious Disease History: Reports: Chicken Pox, Measles, Mumps, Novel Coronavirus - Past Surgical History HEENT Surgical History: Reports: Tonsillectomy, Other (See Below) Other HEENT Surgeries/Procedures: mastoid removal GI Surgical History: Reports: ERCP Musculoskeletal Surgical History: Reports: Other (See Below) Other Musculoskeletal Surgeries/Procedures:: knee surgery Social & Family History - Family History Family Medical History: No Pertinent Family History - Caffeine Use Caffeine Use: Reports: Energy Drinks Caffeine Use Comment: occationally - Living Situation & Occupation Living situation: Reports: , with Spouse, with Family (2 kids) Occupation: Employed ([email or web address]) ED ROS GENERAL - Review of Systems Review Of Systems: See Below Constitutional: Reports: Diaphoresis HEENT: Reports: No Symptoms Respiratory: Reports: Wheezing Cardiovascular: Reports: Chest Pain (Midsternal radiating to the left chest wall). Denies: Edema, Lightheadedness, Orthopnea, Palpitations Endocrine: Reports: No Symptoms GI/Abdominal: Reports: No Symptoms, Nausea. Denies: Constipation, Diarrhea, Vomiting : Reports: No Symptoms Musculoskeletal: Reports: No Symptoms Skin: Reports: Diaphoresis Neurological: Reports: No Symptoms Psychiatric: Reports: No Symptoms Hematologic/Lymphatic: Reports: No Symptoms Immunologic: Reports: No Symptoms ED EXAM, GENERAL - Physical Exam Exam: See Below Exam Limited By: No Limitations General Appearance: Alert, WD/WN, Anxious Eye Exam: Bilateral Eye: PERRL Ears: Hearing Grossly Normal Nose: Normal Inspection Throat/Mouth: Normal Inspection, Normal Lips, Normal Voice, No Airway Compromise Head: Atraumatic, Normocephalic Neck: Normal Inspection, Supple, Non-Tender, Full Range of Motion Respiratory/Chest: No Respiratory Distress, Wheezing (Expiratory wheeze noted bilaterally anteriorly). No: Lungs Clear, Chest Non-Tender (Midsternal tenderness left chest wall tenderness) Cardiovascular: Normal Peripheral Pulses, Regular Rate, Rhythm, No Edema, No Murmur Peripheral Pulses: 2+: Radial (L), Radial (R) GI/Abdominal: Normal Bowel Sounds, Soft, Non-Tender, No Distention (Male) Exam: Deferred Rectal (Males) Exam: Deferred Back Exam: Normal Inspection, Full Range of Motion Extremities: Normal Inspection, Normal Range of Motion, Non-Tender, No Pedal Edema, Normal Capillary Refill Neurological: Alert, Oriented, Normal Cognition, Normal Reflexes Psychiatric: Normal Affect, Normal Mood Skin Exam: Warm, Intact, Normal Color, No Rash, Diaphoretic Lymphatic: No Adenopathy #1 Interpretation EKG Date: 05/15/20 Time: 12:18 Rhythm: NSR Rate (Beats/Min): 93 [place]: Normal P-Wave: Present QRS: Normal ST-T: Normal QT: Normal EKG Interpretation Comments: Per Dr. Almonte interpretation: Sinus rhythm at 93, early R wave transitionconsider right ventricular hypertrophy, septal hypertrophy pattern, diffuse slow repolarization abnormality, mild LAD (- 10 degrees), QTc-454 Course - Vital Signs Text/Narrative:: 44-year-old male presents to the ER with complaints of chest pain that started about 430 this morning. Patient states he worked till 1 AM and then ate a cheeseburger just before bed. States the pain is described as a pressure mid sternal radiating to left side of his chest. Upon assessment lungs have audible expiratory wheezes noted bilaterally on the anterior side. Heart rate is regular. Patient states that his chest discomfort is worsened when he tries to take a deep breath and with palpation. States he has not taken any medication to help relieve the pain. Abdomen is obese, soft nontender and bowel tones are appreciated in all 4 quadrants. There is no edema noted to his bilateral lower extremities. He is slightly diaphoretic at the time of assessment. I have ordered routine labs, chest x-ray and an EKG. Last Recorded V/S: Last Vital Signs Temp 97.5 F 05/15/20 12:24 Pulse 88 05/15/20 12:24 Resp 19 05/15/20 12:24 BP 156/119 H 05/15/20 12:24 Pulse Ox 97 05/15/20 12:24 - Orders/Labs/Meds Orders: Active Orders 24 hr Category Date Time Status EKG Documentation Completion [RC] AM Care 05/15/20 12:34 Active Sodium Chloride 0.9% [Saline Flush] Med 05/15/20 12:34 Active 10 ml FLUSH ASDIRECTED PRN Saline Lock Insert [OM.PC] Stat Oth 05/15/20 12:34 Ordered Medication Orders Sodium Chloride (Saline Flush) 10 ml FLUSH ASDIRECTED PRN PRN Reason: Keep Vein Open Last Admin: 05/15/20 13:01 Dose: 10 ml Documented by: KOJO Labs: Laboratory Tests 05/15/20 05/15/20 Range/Units 12:40 12:40 WBC 6.23 (4.23-9.07) K/mm3 RBC 4.52 L (4.63-6.08) M/mm3 Hgb 14.1 (13.7-17.5) gm/dl Hct 41.5 (40.1-51.0) % MCV 91.8 (79.0-92.2) fl MCH 31.2 (25.7-32.2) pg MCHC 34.0 (32.2-35.5) g/dl RDW Std Deviation 40.1 (35.1-43.9) fL Plt Count 252 (163-337) K/mm3 MPV 10.5 (9.4-12.3) fl Neut % (Auto) 49.1 (34.0-67.9) % Lymph % (Auto) 34.0 (21.8-53.1) % [place] % (Auto) 10.0 (5.3-12.2) % Eos % (Auto) 5.9 (0.8-7.0) Baso % (Auto) 0.8 (0.1-1.2) % Neut # (Auto) 3.06 (1.78-5.38) K/mm3 Lymph # (Auto) 2.12 (1.32-3.57) K/mm3 [place] # (Auto) 0.62 (0.30-0.82) K/mm3 Eos # (Auto) 0.37 (0.04-0.54) K/mm3 Baso # (Auto) 0.05 (0.01-0.08) K/mm3 Sodium 143 (136-145) mEq/L Potassium 3.6 (3.5-5.1) mEq/L Chloride 106 (98-107) mEq/L Carbon Dioxide 26 (21-32) mEq/L Anion Gap 14.6 (5-15) BUN 20 H (7-18) mg/dL Creatinine 1.0 (0.7-1.3) mg/dL Est Cr Clr Drug Dosing 107.32 mL/min Estimated GFR (MDRD) > 60 (>60) mL/min BUN/Creatinine Ratio 20.0 H (14-18) Glucose 134 H (74-106) mg/dL Calcium 8.4 L (8.5-10.1) mg/dL Magnesium 1.9 (1.8-2.4) mg/dl Total Bilirubin 0.3 (0.2-1.0) mg/dL AST 25 (15-37) U/L ALT 49 (16-63) U/L Alkaline Phosphatase 71 (46-116) U/L Troponin I < 0.017 (0.00-0.056) ng/mL Total Protein 7.4 (6.4-8.2) g/dl Albumin 3.9 (3.4-5.0) g/dl Globulin 3.5 gm/dL Albumin/Globulin Ratio 1.1 (1-2) Meds: Medications Generic Name Dose Route Start Last Admin Trade Name Phuong PRN Reason Stop Dose Admin Sodium Chloride 10 ml 05/15/20 12:34 05/15/20 13:01 Saline Flush FLUSH 10 ml ASDIRECTED PRN Administration Keep Vein Open Discontinued Medications Generic Name Dose Route Start Last Admin Trade Name Phuong PRN Reason Stop Dose Admin Al Hydroxide/Mg Hydroxide 30 0 ml 05/15/20 12:35 05/15/20 13:01 ml/ Lidocaine HCl 15 ml PO 05/15/20 12:36 45 ml ONETIME ONE Administration Ketorolac Tromethamine 60 mg 05/15/20 13:26 Toradol IM 05/15/20 13:27 ONETIME ONE Ketorolac Tromethamine 30 mg 05/15/20 13:30 05/15/20 13:35 Toradol IVPUSH 05/15/20 13:31 30 mg ONETIME ONE Administration - Radiology Interpretation Free Text/Narrative:: Radiologist impression portable view of the chest: 1. Nothing acute is seen on portable chest x-ray. - Re-Assessments/Exams Free Text/Narrative Re-Assessment/Exam: 05/15/20 13:34 CBC is unremarkable, chemistry reveals a sodium of 143, potassium 3.6, anion gap 14.6, BUN 20, creatinine 1.0, glucose 134, calcium 8.4, magnesium 1.9, troponin less than 0.017 Ordered a GI cocktail for this patient and it did not help. Due to the fact that the pain is reproducible with deep breath and palpation I suspect it is musculoskeletal in origin. I have ordered for the patient to receive 30 mg of Toradol IV x1 dose. 05/15/20 14:25 Pt did not receive relief from the Toradol. Discussed the case with Dr. Almonte and he recommends Dilaudid x 1 dose now and then discharge the patient to home with a prescription for Prednisone x 5 days and pain medications. Departure - Departure Time of Disposition: 14:26 Disposition: Home, Self-Care 01 Condition: Good Clinical Impression: Chest pain, atypical Prescriptions: oxyCODONE HCl/Acetaminophen [Percocet 5-325 mg Tablet] 1 each PO Q6H PRN #10 tablet PRN Reason: Pain (Moderate 4-6) predniSONE [Prednisone] 20 mg PO DAILY #5 tablet Instructions: Nonspecific Chest Pain, Adult, [id number], Chest Wall Pain, [id number] Referrals: PCP,None [Primary Care Provider] - Forms: ED Department Discharge, ED Return to Work/School Form Additional Instructions: You were seen in the emergency department today with complaints of left sided chest pain. Full cardiac workup was completed and this was unremarkable. You likely strained and pulled muscles in your chest wall at work. I have sent a prescription for percocet to your pharmacy. You may take 1 tab every 6 hours as needed for more severe pain. This is a narcotic and you cannot drive or operate heavy machinery while taking this medication. Prednisone 20mg daily x 5 days. This will help with the inflammation. Recommend that you continue to take naproxen every twelve hours for the next 48 hours. Should your condition worsen or change, please do not hesitate to return to the ED. Sepsis Event Note (ED) - Evaluation Sepsis Screening Result: No Definite Risk - Focused Exam Vital Signs: Vital Signs Temp Pulse Resp BP Pulse Ox 05/15/20 12:24 97.5 F 88 19 156/119 H 97 - My Orders Last 24 Hours: My Active Orders 05/15/20 12:34 EKG Documentation Completion [RC] AM Sodium Chloride 0.9% [Saline Flush] 10 ml FLUSH ASDIRECTED PRN Saline Lock Insert [OM.PC] Stat - Assessment/Plan Last 24 Hours: My Active Orders 05/15/20 12:34 EKG Documentation Completion [RC] AM Sodium Chloride 0.9% [Saline Flush] 10 ml FLUSH ASDIRECTED PRN Saline Lock Insert [OM.PC] Stat
[2020-05-15] MEDS ORDERED: Ketorolac 60 MG/2 ML SDV IM ONE (13:26)
[2020-05-15] MEDS ORDERED: Ketorolac 30 MG/ML SDV IVPUSH ONE (13:30)
--- NOTE | 2020-05-15 13:38 | CR ---
Chest: Portable view of the chest was obtained. Comparison: Prior chest x-ray of 02/24/20 and 02/19/19. Heart size and mediastinum are within normal limits. Lungs are clear with no acute parenchymal change. Minimal scoliosis is noted within the spine. Impression: 1. Nothing acute is seen on portable chest x-ray. Diagnostic code #1
[2020-05-15] MEDS ORDERED: HYDROmorphone 0.5 MG/0.5 ML Syringe IVPUSH ONE (14:24)
[2020-05-15] MEDS ORDERED: Ondansetron 4 MG/2 ML SDV IVPUSH ONE (14:24)
[2020-05-15 17:33] VITALS: BP 134/88; PULSE 75
== END 2020-05-15 14:50 | disposition home or self-care (01) ==
LOC: JD.ED 12:12
DX: R07.89 Other chest pain (principal); R11.0 Nausea; R61 Generalized hyperhidrosis; R06.2 Wheezing; E66.9 Obesity, unspecified; Z68.36 Body mass index [BMI] 36.0-36.9, adult
CPT/HCPCS: 36415; 71045; 80053; 83735; 84484; 85025; 93005; 96374; 96375; 99285; A9270; J1170; J1885; J2405; 93010; 99284

== ENCOUNTER 2020-05-25 15:30 | Emergency (ER) | payer BC ==
[2020-05-25] MEDS ORDERED: Sodium Chloride 0.9% 10 ML Syringe FLUSH PRN (16:13)
[2020-05-25] MEDS ORDERED: HYDROmorphone 1 MG/ML Syringe IVPUSH ONE ×2 (16:14→17:40)
[2020-05-25] MEDS ORDERED: Sodium Chloride 0.9% 1,000 ML IV SCH (16:15)
[2020-05-25] MEDS ORDERED: Iopamidol 755 Mg/ML 100 ML Bottle IVPUSH ONE (16:24)
[2020-05-25] MEDS ORDERED: Sodium Chloride 0.9% 100 ML IV SCH (16:30)
[2020-05-25] MEDS ORDERED: Sodium Chloride 0.9% 10 ML Syringe FLUSH SCH (16:30)
--- NOTE | 2020-05-25 16:31 | EDM.PDOC ---
ED HPI GENERAL MEDICAL PROBLEM - General Chief Complaint: Respiratory Problem Stated Complaint: SOB AND HIGH BLOOD PRESSURE Time Seen by Provider: 05/25/20 16:01 Source of Information: Reports: Patient History Limitations: Reports: No Limitations - History of Present Illness INITIAL COMMENTS - FREE TEXT/NARRATIVE: The patient presents with left sided chest pain and shortness of breath. He says this has been going on for about 12 days currently. This has been an issue in the past. He saw his doctor a few days ago and today he was seeing Brittany Potts and she went to lay him down to do an EKG and he got lightheaded and nearly passed out. He has had CXR and EKGs and labs and nothing abnormal has been found. The pain is severe now in the left chest. He has pain with palpation. He has no fever, chills, cough, abdominal pain, nausea or vomiting. He does not smoke. He has no history of PE or DVT. Onset: Gradual Duration: Day(s): (12) Location: Reports: Chest Quality: Reports: Sharp Severity: Severe Improves with: Reports: None Worsens with: Reports: None Associated Symptoms: Reports: Chest Pain, Shortness of Breath. Denies: Cough, Fever/Chills, Headaches, Nausea/Vomiting Left Chest Pain Score (Numeric/FACES): 9 - Related Data Allergies Allergy/AdvReac Type Severity Reaction Status Date / Time No Known Allergies Allergy Verified 05/15/20 12:28 Home Meds: Home Meds Albuterol [Proventil HFA] 2 puff INH Q4H PRN #1 inhaler 05/25/20 [Rx] Naproxen 440 mg PO BID 05/25/20 [History] oxyCODONE 5 mg PO Q4H PRN 05/25/20 [History] oxyCODONE 5 mg PO Q6HR PRN #10 tab 05/25/20 [Rx] tiZANidine [Zanaflex] 4 mg PO TID PRN 05/25/20 [History] Past Medical History - Past Health History Medical/Surgical History: Denies Medical/Surgical History HEENT History: Reports: Hard of Hearing Genitourinary History: Reports: Renal Calculus Musculoskeletal History: Reports: Fracture Neurological History: Reports: Other (See Below) Other Neuro History: childhood menengitis-had as Endocrine/Metabolic History: Reports: Obesity/BMI 30+ - Infectious Disease History Infectious Disease History: Reports: Chicken Pox, Measles, Mumps, Novel Coronavirus - Past Surgical History HEENT Surgical History: Reports: Tonsillectomy, Other (See Below) Other HEENT Surgeries/Procedures: mastoid removal GI Surgical History: Reports: ERCP Male Surgical History: Reports: Lithotripsy ([facility]) Musculoskeletal Surgical History: Reports: Arthroscopic Knee, Other (See Below) Other Musculoskeletal Surgeries/Procedures:: knee surgery right Social & Family History - Family History Family Medical History: No Pertinent Family History - Caffeine Use Caffeine Use: Reports: Energy Drinks Caffeine Use Comment: occationally - Living Situation & Occupation Living situation: Reports: , with Spouse, with Family (2 kids) Occupation: Employed ([employer]) ED ROS GENERAL - Review of Systems Review Of Systems: See Below Constitutional: Reports: No Symptoms HEENT: Reports: No Symptoms Respiratory: Reports: Shortness of Breath Cardiovascular: Reports: Chest Pain Endocrine: Reports: No Symptoms GI/Abdominal: Reports: No Symptoms : Reports: No Symptoms Musculoskeletal: Reports: No Symptoms Skin: Reports: No Symptoms ED EXAM, GENERAL - Physical Exam Exam: See Below Exam Limited By: No Limitations General Appearance: Alert, No Apparent Distress Ears: Normal External Exam Nose: Normal Inspection Head: Atraumatic, Normocephalic Neck: Normal Inspection Respiratory/Chest: No Respiratory Distress, Lungs Clear, Normal Breath Sounds Cardiovascular: Regular Rate, Rhythm, No Edema, No Murmur, Other (Pain upon palpation to the left chest) GI/Abdominal: Soft, Non-Tender, No Organomegaly, No Mass Back Exam: Normal Inspection Extremities: Normal Inspection #1 Interpretation EKG Date: 05/25/20 Time: 16:05 Rhythm: NSR Rate (Beats/Min): 83 [place]: Normal P-Wave: Present QRS: Normal ST-T: Normal QT: Prolonged Course - Vital Signs Last Recorded V/S: Last Vital Signs Temp 99.1 F 05/25/20 15:56 Pulse 68 05/25/20 17:15 Resp 18 05/25/20 17:15 BP 139/87 05/25/20 17:20 Pulse Ox 98 05/25/20 17:15 - Orders/Labs/Meds Orders: Active Orders 24 hr Category Date Time Status Cardiac Monitoring [RC] . DIRECTED Care 05/25/20 16:13 Active EKG Documentation Completion [RC] STAT Care 05/25/20 16:13 Active Peripheral IV Care [RC] . DIRECTED Care 05/25/20 16:13 Active C-REACTIVE PROTEIN [CHEM] Stat Lab 05/25/20 16:38 Results CBC WITH AUTO DIFF [HEME] Stat Lab 05/25/20 16:38 Received COMPREHENSIVE METABOLIC PN,CMP [CHEM] Stat Lab 05/25/20 16:38 Results TROPONIN I [CHEM] Stat Lab 05/25/20 16:38 Results HYDROmorphone [Dilaudid] Med 05/25/20 17:40 Once 1 mg IVPUSH ONETIME ONE Sodium Chloride 0.9% [Normal Saline] 1,000 ml Med 05/25/20 16:15 Active IV .BOLUS Sodium Chloride 0.9% [Normal Saline] 100 ml Med 05/25/20 16:30 Active IV ASDIRECTED Sodium Chloride 0.9% [Saline Flush] Med 05/25/20 16:30 Active 10 ml FLUSH ASDIRECTED Sodium Chloride 0.9% [Saline Flush] Med 05/25/20 16:13 Active 10 ml FLUSH ASDIRECTED PRN Peripheral IV Insertion Adult [OM.PC] Stat Oth 05/25/20 16:13 Ordered Medication Orders Sodium Chloride (Normal Saline) 1,000 mls @ 1,000 mls/hr IV .BOLUS CHERRI Last Admin: 05/25/20 16:35 Dose: 1,000 mls/hr Documented by: EBERELI Sodium Chloride (Normal Saline) 100 mls @ 60 mls/hr IV ASDIRECTED CHERRI Last Admin: 05/25/20 17:09 Dose: 60 mls/hr Documented by: SUMANTH Sodium Chloride (Saline Flush) 10 ml FLUSH ASDIRECTED PRN PRN Reason: Keep Vein Open Last Admin: 05/25/20 16:36 Dose: 10 ml Documented by: EBERELI Sodium Chloride (Saline Flush) 10 ml FLUSH ASDIRECTED CHERRI Last Admin: 05/25/20 17:06 Dose: 10 ml Documented by: SUMANTH Labs: Laboratory Tests 05/25/20 Range/Units 16:38 Sodium 143 (136-145) mEq/L Potassium 3.9 (3.5-5.1) mEq/L Chloride 104 (98-107) mEq/L Carbon Dioxide 30 (21-32) mEq/L Anion Gap 12.9 (5-15) BUN 13 (7-18) mg/dL Creatinine 0.9 (0.7-1.3) mg/dL Est Cr Clr Drug Dosing 119.24 mL/min Estimated GFR (MDRD) > 60 (>60) mL/min BUN/Creatinine Ratio 14.4 (14-18) Glucose 88 (74-106) mg/dL Calcium 9.0 (8.5-10.1) mg/dL Total Bilirubin 0.4 (0.2-1.0) mg/dL ALT 43 (16-63) U/L Alkaline Phosphatase 66 (46-116) U/L Troponin I < 0.017 (0.00-0.056) ng/mL C-Reactive Protein < 0.2 (<1.0) mg/dL Total Protein 7.6 (6.4-8.2) g/dl Albumin 4.0 (3.4-5.0) g/dl Globulin 3.6 gm/dL Albumin/Globulin Ratio 1.1 (1-2) Meds: Medications Generic Name Dose Route Start Last Admin Trade Name Freq PRN Reason Stop Dose Admin Sodium Chloride 1,000 mls @ 1,000 mls/hr 05/25/20 16:15 05/25/20 16:35 Normal Saline IV 1,000 mls/hr .BOLUS CHERRI Administration Sodium Chloride 100 mls @ 60 mls/hr 05/25/20 16:30 05/25/20 17:09 Normal Saline IV 60 mls/hr ASDIRECTED CHERRI Administration Sodium Chloride 10 ml 05/25/20 16:13 05/25/20 16:36 Saline Flush FLUSH 10 ml ASDIRECTED PRN Administration Keep Vein Open Sodium Chloride 10 ml 05/25/20 16:30 05/25/20 17:06 Saline Flush FLUSH 10 ml ASDIRECTED CHERRI Administration Discontinued Medications Generic Name Dose Route Start Last Admin Trade Name Freq PRN Reason Stop Dose Admin Hydromorphone HCl 1 mg 05/25/20 16:14 05/25/20 16:36 Dilaudid IVPUSH 05/25/20 16:15 1 mg ONETIME ONE Administration Iopamidol 100 ml 05/25/20 16:24 05/25/20 17:06 [id number] (76%) IVPUSH 05/25/20 16:25 100 ml ONETIME ONE Administration - Re-Assessments/Exams Free Text/Narrative Re-Assessment/Exam: 05/25/20 16:34 I ordered an IV NS 1L bolus, dilaudid 1mg IV, labs, EKG, and CT angio of his chest. 05/25/20 17:41 His EKG shows a NSR with no acute changes. His chest CT shows no PE. His CMP, CRP and troponin are negative. He has more pain. I have ordered more dilaudid. It does not appear he is having an RI. I am not sure what his causing his pain. I was thinking pleurisy. He did try steroids last month and they did not help. I feel he my need to be evaluated by cardiology. 05/25/20 17:43 He did have a little wheeze when I was back in the room. I will give him some albuterol for that and something more for pain. Departure - Departure Time of Disposition: 17:45 Disposition: Home, Self-Care 01 Condition: Good Clinical Impression: Atypical chest pain - Discharge Information Prescriptions: oxyCODONE 5 mg PO Q6HR PRN #10 tab PRN Reason: Pain Albuterol [Proventil HFA] 2 puff INH Q4H PRN #1 inhaler PRN Reason: Shortness Of Breath Referrals: Lauren Garza MD [Primary Care Provider] - 1 Week Forms: ED Department Discharge, ED Return to Work/School Form Additional Instructions: Use the inhaler 2 puffs every 6 hours as needed for any wheezing or shortness of breath. Take the oxycodone 5mg every 6 hours as needed for pain. Follow up with your doctor within a week. Please return if you are worse. Sepsis Event Note (ED) - Evaluation Sepsis Screening Result: No Definite Risk - Focused Exam Vital Signs: Vital Signs Temp Pulse Resp BP Pulse Ox 05/25/20 17:20 139/87 05/25/20 17:15 68 18 169/134 H 98 05/25/20 15:56 99.1 F 90 20 158/122 H 97 - My Orders Last 24 Hours: My Active Orders 05/25/20 16:13 Cardiac Monitoring [RC] . DIRECTED EKG Documentation Completion [RC] STAT Peripheral IV Care [RC] . DIRECTED Sodium Chloride 0.9% [Saline Flush] 10 ml FLUSH ASDIRECTED PRN Peripheral IV Insertion Adult [OM.PC] Stat 05/25/20 16:15 Sodium Chloride 0.9% [Normal Saline] 1,000 ml IV .BOLUS 05/25/20 16:30 Sodium Chloride 0.9% [Normal Saline] 100 ml IV ASDIRECTED Sodium Chloride 0.9% [Saline Flush] 10 ml FLUSH ASDIRECTED 05/25/20 16:38 C-REACTIVE PROTEIN [CHEM] Stat CBC WITH AUTO DIFF [HEME] Stat COMPREHENSIVE METABOLIC PN,CMP [CHEM] Stat TROPONIN I [CHEM] Stat 05/25/20 17:40 HYDROmorphone [Dilaudid] 1 mg IVPUSH ONETIME ONE - Assessment/Plan Last 24 Hours: My Active Orders 05/25/20 16:13 Cardiac Monitoring [RC] . DIRECTED EKG Documentation Completion [RC] STAT Peripheral IV Care [RC] . DIRECTED Sodium Chloride 0.9% [Saline Flush] 10 ml FLUSH ASDIRECTED PRN Peripheral IV Insertion Adult [OM.PC] Stat 05/25/20 16:15 Sodium Chloride 0.9% [Normal Saline] 1,000 ml IV .BOLUS 05/25/20 16:30 Sodium Chloride 0.9% [Normal Saline] 100 ml IV ASDIRECTED Sodium Chloride 0.9% [Saline Flush] 10 ml FLUSH ASDIRECTED 05/25/20 16:38 C-REACTIVE PROTEIN [CHEM] Stat CBC WITH AUTO DIFF [HEME] Stat COMPREHENSIVE METABOLIC PN,CMP [CHEM] Stat TROPONIN I [CHEM] Stat 05/25/20 17:40 HYDROmorphone [Dilaudid] 1 mg IVPUSH ONETIME ONE
[2020-05-25 17:18] VITALS: PULSE 68
[2020-05-25 17:25] VITALS: BP 139/87
--- NOTE | 2020-05-25 17:25 | CT ---
CT chest Technique: Multiple axial sections through the chest were obtained. Intravenous contrast was utilized. Study has been performed as a pulmonary angiogram protocol. Comparison: No prior chest CT is available, prior chest x-ray of 05/22/20 is available. Findings: Thoracic aorta shows no aneurysm. Pulmonary arteries are well opacified. No filling defects are seen to indicate pulmonary embolism. Mediastinum and hilar region shows no discrete adenopathy or mass. No pericardial thickening is seen. Small portion of the visualized upper abdominal structures show nothing acute. Bone window settings were obtained which show mild scattered degenerative change within the thoracic spine. No acute osseous abnormality is appreciated. Impression: 1. No findings of pulmonary embolism. 2. Nothing acute is seen on CT study of the chest. Diagnostic code #1
== END 2020-05-25 18:00 | disposition home or self-care (01) ==
LOC: SUPCPDRO 15:30 → JD.ED 15:30
DX: R07.89 Other chest pain (principal); R06.02 Shortness of breath; E66.9 Obesity, unspecified; Z68.39 Body mass index [BMI] 39.0-39.9, adult; Z86.16 Personal history of COVID-19
CPT/HCPCS: 36415; 71275; 80053; 84484; 85025; 86140; 93005; 96374; 96376; 99285; J1170; J7030; Q9967; 93010; 99284

== ENCOUNTER 2020-05-28 09:04 | Inpatient (IN) | payer BC ==
--- NOTE | 2020-05-28 10:03 | EDM.PDOC ---
ED HPI GENERAL MEDICAL PROBLEM - General Chief Complaint: Respiratory Problem Stated Complaint: SOB NOT GETTING BETTER Time Seen by Provider: 05/28/20 09:57 Source of Information: Reports: Patient History Limitations: Reports: Physical Impairment (Moderately hard of hearing. He does not wear hearing aids.) - History of Present Illness INITIAL COMMENTS - FREE TEXT/NARRATIVE: 44-year-old male presents to the ED for evaluation of persistent left-sided anterior chest pain. This started around 15 May and has been persistent since that time. No known injury. 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 He woke up with that the morning after arrival from his home and traveled by air. Subsequently has been seen by multiple physicians and providers. He was seen 3 days ago through the ED by Dr. Dejesus and and had CT pulmonary angiogram done. I have reviewed this that shows no rib injuries or abnormalities in the lungs. There was no sign of PE at that time cardiac silhouette is normal. Patient appreciates he is able to push on the painful areas in his anterior chest. He continues to take NSAIDs a Naprosyn and Motrin with very little relief. He was prescribed Percocet tablets which is not finding all that helpful either. Pain is sharp and stabbing and cannot take a full deep breath without being stabbed by pain. It is very well localized to the anterior left upper anterior chest. ECG done 3 days ago was normal as was his serum troponin. CRP was also less than 0.2. He has no past history of asthma. He did have COVID-19 illness back in December last year. He is using an albuterol inhaler with no relief. Onset: Sudden Onset Date: 05/15/20 Duration: Week(s):, Constant Location: Reports: Chest Quality: Reports: Other (System left precordial chest pain well localized to the chest wall.) Severity: Severe (Very tender to palpation ribs 2-5 midclavicular line left anterior chest.) Improves with: Reports: None Worsens with: Reports: Other Context: Denies: Activity (By certain movements deep breathing and coughing.), Exercise, Lifting, Sick Contact, Trauma, Other Associated Symptoms: Reports: Chest Pain (Left precordial chest pain sharp and stabbing), Shortness of Breath (Of shortness of breath as he cannot take a full deep breath due to). 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 Left Chest Pain Score (Numeric/FACES): 9 - Related Data Allergies Allergy/AdvReac Type Severity Reaction Status Date / Time No Known Allergies Allergy Verified 05/28/20 09:32 Home Meds: Home Meds Albuterol [Proventil HFA] 2 puff INH Q4H PRN #1 inhaler 05/25/20 [Rx] Naproxen 440 mg PO BID 05/25/20 [History] oxyCODONE 5 mg PO Q6HR PRN #10 tab 05/25/20 [Rx] tiZANidine [Zanaflex] 4 mg PO TID PRN 05/25/20 [History] Diclofenac Sodium [Voltaren] 75 mg PO BIDMEALS #20 tab.cr 05/28/20 [Rx] Gabapentin [Neurontin] 600 mg PO BEDTIME #14 tab 05/28/20 [Rx] oxyCODONE HCl/Acetaminophen [Percocet 10-325 mg Tablet] 1 - 2 each PO Q4H PRN #2 0 tablet 05/28/20 [Rx] predniSONE [Prednisone] 20 mg PO ASDIRECTED #29 tablet 05/28/20 [Rx] Past Medical History - Past Health History Medical/Surgical History: Denies Medical/Surgical History HEENT History: Reports: Hard of Hearing Genitourinary History: Reports: Renal Calculus Musculoskeletal History: Reports: Fracture Neurological History: Reports: Other (See Below) Other Neuro History: 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 Endocrine/Metabolic History: Reports: Obesity/BMI 30+ - Infectious Disease History Infectious Disease History: Reports: Chicken Pox, Measles, Mumps, Novel Coronavirus - Past Surgical History HEENT Surgical History: Reports: Tonsillectomy, Other (See Below) Other HEENT Surgeries/Procedures: mastoid removal GI Surgical History: Reports: ERCP Male Surgical History: Reports: Lithotripsy ([facility]) Musculoskeletal Surgical History: Reports: Arthroscopic Knee, Other (See Below) Other Musculoskeletal Surgeries/Procedures:: knee surgery right Social & Family History - Family History Family Medical History: No Pertinent Family History - Caffeine Use Caffeine Use: Reports: Coffee, Soda Caffeine Use Comment: occationally - Living Situation & Occupation Living situation: Reports: , with Spouse, with Family (2 kids) Occupation: Employed ([employer]) ED ROS GENERAL - Review of Systems Review Of Systems: See Below Constitutional: Denies: Fever, Chills, Malaise, Weakness, Fatigue, Decreased Appetite, Weight Loss HEENT: Reports: No Symptoms Respiratory: Reports: Shortness of Breath (Cannot take a full deep breath because of). Denies: Pleuritic Chest Pain ( sharp stabbing pain left anterior chest.), Cough, Sputum, Hemoptysis Cardiovascular: Reports: Chest Pain (Precordial chest pain sharp and stabbing), Blood Pressure Problem. Denies: Claudication, Dyspnea on Exertion, Edema, Lig htheadedness, Orthopnea, Palpitations Endocrine: Reports: Fatigue GI/Abdominal: Reports: No Symptoms : Reports: No Symptoms Musculoskeletal: Reports: No Symptoms Skin: Reports: No Symptoms Neurological: Reports: No Symptoms Psychiatric: Reports: No Symptoms Hematologic/Lymphatic: Reports: No Symptoms ED EXAM, GENERAL - Physical Exam Exam: See Below Exam Limited By: No Limitations General Appearance: Alert, WD/WN, Mild Distress, Other (Temperature is 36.6 degrees. Heart rate 103 and sinus at the bedside. Respiratory is 21 with O2 sats of 100% room air BP 116 101.) Eye Exam: Bilateral Eye: Normal Inspection (No scleral icterus or blepharal pallor.), PERRL Neck: Normal Inspection, Supple, Non-Tender, Full Range of Motion. No: Carotid Bruit, Lymphadenopathy (L), Lymphadenopathy (R), Thyromegaly Respiratory/Chest: No Respiratory Distress, Lungs Clear, Normal Breath Sounds, No Accessory Muscle Use, Other (Swells exquisitely tender in the left side midclavicular line from ribs 2-5 particular the fourth rib compatible with a perichondritis. There is no pain on palpation of the ribs on the right side.) Cardiovascular: Normal Peripheral Pulses, Regular Rate, Rhythm, No Edema, No Gallop, No Murmur, No Rub, Tachycardia (Tachycardia at rest 100/min.) Peripheral Pulses: 3+: Carotid (L), Carotid (R), Posterior Tibial (L), Posterior Tibial (R), Dorsalis Pedis (L), Dorsalis Pedis (R) GI/Abdominal: Normal Bowel Sounds, Soft, Non-Tender, No Organomegaly, No Mass, Pelvis Stable Back Exam: Normal Inspection, Full Range of Motion. No: CVA Tenderness (L), CVA Tenderness (R) Extremities: Normal Inspection, Normal Range of Motion, Non-Tender, No Pedal Edema Neurological: Alert, Oriented, CN II-XII Intact, Normal Cognition, Normal Gait Psychiatric: Normal Affect, Normal Mood Skin Exam: Warm, Dry, Intact, Normal Color, No Rash Course - Vital Signs Last Recorded V/S: Last Vital Signs Temp 36.3 C 05/28/20 13:26 Pulse 115 H 05/28/20 13:30 Resp 24 H 05/28/20 13:30 BP 123/112 H 05/28/20 13:30 Pulse Ox 92 L 05/28/20 13:30 - Orders/Labs/Meds Orders: Active Orders 24 hr Category Date Time Status EKG Documentation Completion [RC] STAT Care 05/28/20 12:19 Active Nitroglycerin/D5W [Nitroglycerin 25 MG/D5W 250 ML] Med 05/28/20 13:15 Active 25 mg in 250 ml IV TITRATE Medication Orders Nitroglycerin/Dextrose (Nitroglycerin 25 Mg/D5w 250 Ml) 25 mg in 250 mls @ 6 mls/hr IV TITRATE CHERRI; Protocol Last Admin: 05/28/20 13:16 Dose: 10 mcg/min, 6 mls/hr Documented by: LINDSEY Labs: Laboratory Tests 05/28/20 05/28/20 05/28/20 Range/Units 12:38 12:38 12:38 WBC 7.53 (4.23-9.07) K/mm3 RBC 4.68 (4.63-6.08) M/mm3 Hgb 14.6 (13.7-17.5) gm/dl Hct 43.4 (40.1-51.0) % MCV 92.7 H (79.0-92.2) fl MCH 31.2 (25.7-32.2) pg MCHC 33.6 (32.2-35.5) g/dl RDW Std Deviation 40.9 (35.1-43.9) fL Plt Count 279 (163-337) K/mm3 MPV 10.0 (9.4-12.3) fl Neut % (Auto) 78.3 H (34.0-67.9) % Lymph % (Auto) 17.1 L (21.8-53.1) % Emery % (Auto) 2.7 L (5.3-12.2) % Eos % (Auto) 1.1 (0.8-7.0) Baso % (Auto) 0.5 (0.1-1.2) % Neut # (Auto) 5.90 H (1.78-5.38) K/mm3 Lymph # (Auto) 1.29 L (1.32-3.57) K/mm3 Emery # (Auto) 0.20 L (0.30-0.82) K/mm3 Eos # (Auto) 0.08 (0.04-0.54) K/mm3 Baso # (Auto) 0.04 (0.01-0.08) K/mm3 PT 10.9 (9.7-12.0) SECONDS INR 1.02 APTT 25.9 (21.7-31.4) SECONDS Sodium 141 (136-145) mEq/L Potassium 4.2 (3.5-5.1) mEq/L Chloride 105 (98-107) mEq/L Carbon Dioxide 26 (21-32) mEq/L Anion Gap 14.2 (5-15) BUN 18 (7-18) mg/dL Creatinine 1.2 (0.7-1.3) mg/dL Est Cr Clr Drug Dosing 89.43 mL/min Estimated GFR (MDRD) > 60 (>60) mL/min BUN/Creatinine Ratio 15.0 (14-18) Glucose 129 H (74-106) mg/dL Calcium 8.8 (8.5-10.1) mg/dL Magnesium (1.8-2.4) mg/dl Total Bilirubin 0.3 (0.2-1.0) mg/dL AST 21 (15-37) U/L ALT 46 (16-63) U/L Alkaline Phosphatase 75 (46-116) U/L CK-MB (CK-2) 1.2 (0-3.6) ng/ml Troponin I < 0.017 (0.00-0.056) ng/mL Total Protein 7.9 (6.4-8.2) g/dl Albumin 4.1 (3.4-5.0) g/dl Globulin 3.8 gm/dL Albumin/Globulin Ratio 1.1 (1-2) SARS-CoV-2 RNA (SHERRELL) (NEGATIVE) 05/28/20 05/28/20 Range/Units 12:38 13:22 WBC (4.23-9.07) K/mm3 RBC (4.63-6.08) M/mm3 Hgb (13.7-17.5) gm/dl Hct (40.1-51.0) % MCV (79.0-92.2) fl MCH (25.7-32.2) pg MCHC (32.2-35.5) g/dl RDW Std Deviation (35.1-43.9) fL Plt Count (163-337) K/mm3 MPV (9.4-12.3) fl Neut % (Auto) (34.0-67.9) % Lymph % (Auto) (21.8-53.1) % Emery % (Auto) (5.3-12.2) % Eos % (Auto) (0.8-7.0) Baso % (Auto) (0.1-1.2) % Neut # (Auto) (1.78-5.38) K/mm3 Lymph # (Auto) (1.32-3.57) K/mm3 Emery # (Auto) (0.30-0.82) K/mm3 Eos # (Auto) (0.04-0.54) K/mm3 Baso # (Auto) (0.01-0.08) K/mm3 PT (9.7-12.0) SECONDS INR APTT (21.7-31.4) SECONDS Sodium (136-145) mEq/L Potassium (3.5-5.1) mEq/L Chloride (98-107) mEq/L Carbon Dioxide (21-32) mEq/L Anion Gap (5-15) BUN (7-18) mg/dL Creatinine (0.7-1.3) mg/dL Est Cr Clr Drug Dosing mL/min Estimated GFR (MDRD) (>60) mL/min BUN/Creatinine Ratio (14-18) Glucose (74-106) mg/dL Calcium (8.5-10.1) mg/dL Magnesium 2.0 (1.8-2.4) mg/dl Total Bilirubin (0.2-1.0) mg/dL AST (15-37) U/L ALT (16-63) U/L Alkaline Phosphatase (46-116) U/L CK-MB (CK-2) (0-3.6) ng/ml Troponin I (0.00-0.056) ng/mL Total Protein (6.4-8.2) g/dl Albumin (3.4-5.0) g/dl Globulin gm/dL Albumin/Globulin Ratio (1-2) SARS-CoV-2 RNA (SHERRELL) Positive H (NEGATIVE) Meds: Medications Generic Name Dose Route Start Last Admin Trade Name Freq PRN Reason Stop Dose Admin Nitroglycerin/Dextrose 25 mg in 250 mls @ 6 mls/hr 05/28/20 13:15 05/28/20 13:16 Nitroglycerin 25 Mg/D5w 250 Ml IV 10 mcg/min TITRATE CHERRI 6 mls/hr Administration Protocol 10 MCG/MIN Discontinued Medications Generic Name Dose Route Start Last Admin Trade Name Manoloq PRN Reason Stop Dose Admin Aspirin 324 mg 05/28/20 13:06 05/28/20 13:13 Aspirin PO 05/28/20 13:07 324 mg ONETIME ONE Administration Fentanyl 100 mcg 05/28/20 12:04 05/28/20 12:23 Sublimaze IVPUSH 05/28/20 12:05 100 mcg ONETIME ONE Administration Furosemide 40 mg 05/28/20 13:07 05/28/20 13:13 Lasix IVPUSH 05/28/20 13:08 40 mg NOW ONE Administration Gabapentin 600 mg 05/28/20 13:35 05/28/20 13:56 Neurontin PO 05/28/20 13:36 600 mg ONETIME ONE Administration Hydromorphone HCl 1 mg 05/28/20 10:05 05/28/20 10:17 Dilaudid IVPUSH 05/28/20 10:06 1 mg ONETIME ONE Administration Hydromorphone HCl 1 mg 05/28/20 10:44 05/28/20 10:55 Dilaudid IVPUSH 05/28/20 10:45 1 mg ONETIME ONE Administration Hydromorphone HCl 1 mg 05/28/20 12:56 05/28/20 13:03 Dilaudid IVPUSH 05/28/20 12:57 1 mg ONETIME ONE Administration Hydromorphone HCl 1.5 mg 05/28/20 14:22 05/28/20 14:29 Dilaudid IVPUSH 05/28/20 14:23 1.5 mg ONETIME ONE Administration Dextrose/Sodium Chloride 1,000 mls @ 500 mls/hr 05/28/20 10:15 05/28/20 10:17 Dextrose 5%-Normal Saline IV 500 mls/hr ASDIRECTED CHERRI Administration Ibuprofen 800 mg 05/28/20 13:35 05/28/20 13:56 Motrin PO 05/28/20 13:36 800 mg ONETIME ONE Administration Ketorolac Tromethamine 30 mg 05/28/20 10:15 05/28/20 10:16 Toradol IVPUSH 30 mg ONETIME CHERRI Administration Lorazepam 0.5 mg 05/28/20 10:44 05/28/20 10:56 Ativan IV 05/28/20 10:45 0.5 mg ONETIME ONE Administration Lorazepam 1 mg 05/28/20 13:34 05/28/20 13:56 Ativan IV 05/28/20 13:35 1 mg ONETIME ONE Administration Methylprednisolone Sodium Succinate 125 mg 05/28/20 10:06 05/28/20 10:16 Solu-Medrol IVPUSH 05/28/20 10:07 125 mg ONETIME ONE Administration - Radiology Interpretation Free Text/Narrative:: 44-year-old male presents to the ED with left anterior chest pain. Clinically it is chest wall pain rib coming from ribs 2-5 midclavicular line on the left side. No known injuries. CT pulmonary angiogram done 3 days ago reviewed and it was within normal limits showing no evidence of any PE or abnormality of the ribs themselves. ECGs have been negative troponin was negative as well as CRP of less than 0.2. He has taken a remote course of prednisone with little effect. Clinically he is going to need steroids to bring this under control. He is a very large man at 138 kg. Plan Dilaudid 1 mg IV with Toradol 30 mg IV and Solu-Medrol 125 mg IV at this time. Further labs investigations will be undertaken - Re-Assessments/Exams Free Text/Narrative Re-Assessment/Exam: 05/28/20 10:45 complaining of severe pain left precordial chest. Will repeat Dilaudid 1 mg IV and Ativan 0.5 mg IV for pain relief. 05/28/20 12:05 Patient is experiencing marked increased left precordial chest pain with very little improvement after Dilaudid 1 mg IV x2 doses. He does weigh 320 pounds. Still seems to be exquisitely sore to palpation ribs 1-5 midclavicular line left anterior chest. I will now order chest x-ray and cardiac labs as well as an ECG to make sure we are not missing anything. No orders have been ordered initially since he has gone through multiple investigations over the last 2 weeks. This includes a CT pulmonary angiogram just done 3 days ago. Did not states that no position is comfortable. He is having worse pain now than when I seen him initially. He is breaking out in a cold sweat with beads of perspiration on his forehead. He denies any pain in his back which would be concerning for dissection. Cardiac markers at that time were normal as was his ECG. We will give him fentanyl 100 mcg IV for pain relief at this time. 05/28/20 12:59 ECG has been completed reveals sinus tachycardia at 113/min. There is abnormal R wave progression with delayed or late transition. Mild left axis deviation of -15 degrees. There are near Q waves in leads III and aVF give some consideration to an old inferior wall myocardial infarction. T wave flattening in leads I, III, aVL and aVF nonspecific. QTC is also markedly prolonged. No evidence of acute ischemic change. I have placed orders for cardiac markers and PT/PTT. I am not able to obtain a BNP since analyzer is not working until tomorrow. Repeat COVID-19 screen will be done in spite of the fact the patient states he had COVID-19 in December last year. 05/28/20 13:05 chest x-ray done portably reveals evidence of diffuse vascular congestion or acute pulmonary edema in comparison to chest x-ray done May 22-- dramatic difference. Less likely due to poor inhalation. Is experiencing a good deal of pain on deep inspiration. Another consideration would be for COVID-19 illness but he had COVID-19 documented in [place] January 08 and apparently tested negative by January 24.. Currently our analyzer is down and I am not able to obtain a BNP value. Patient will be treated for suspect LA even in spite of negative ECG. He will be started on nitroglycerin drip at 10 mcg/min and be given aspirin 324 mg chewed. Patient does believe that the Dilaudid is more effective in relieving his pain and the fentanyl was. 05/28/20 13:30 Hematology is back showing a white count of 7.53. The differential reveals 78.3% neutrophils. Hemoglobin is 14.6 with hematocrit of 93.4. MCV minimally elevated at 92.7. PT is 10.9 with INR of 1.02 and a PTT of 25.9. Sodium 141 with potassium of 4.2. Chloride 105 with a bicarb of 26. Anion gap is 14.2. BUN is 18 with a creatinine of 1.2. GFR is greater than 60. Glucose is 129. Calcium is 8.8 magnesium is 2.0 total bilirubin is 0.3 AST is 21 with an ALT of 46 alk phosphatase of 75. CK-MB fraction is 1.2. Troponin I is less than 0.017. Total protein is 7.9 with an albumin fraction of 4.1. His cardiac markers are normal his nitroglycerin drip will be discontinued. 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 He is still panting like a puppy and not able to take a deep inspiration. He states the sharp stabbing pain now is worse than when he came in. I am going to give him gabapentin 600 mg orally now with 800 mg of Motrin. 05/28/20 14:20 Covid -19 screen came back positive. On consultation with the lab they indicate that the COVID-19 false positive rate is less than 0.5%. The patient was diagnosed with Covid back in January 09, 2020 and his whole family came down with the illness. He tested +10 days later and then 3 days after that tested negative as he was allowed to come back to work. Therefore I am not sure what to make of the test since he has no other signs or symptoms of Covid other than an abnormal chest x-ray. He has no fever no chills no elevated white count negative CRP negative troponin I cannot obtain an LDH or ferritin or BNP at this time. Currently having a great deal of pain once again. Given some consideration to whether or not he would tolerate bamlaminivumab but I suspect he would react to monoclonal antibody since he has had a definite infection within the last 4 to 5 months. It also would make him not be able to have a COVID-19 and vaccination for a minimum of 3 more months. Not hypoxic at this time. The plan will be to place him on prednisone as preplanned to relieve the inflammation in his anterior chest. I did discuss the results with our lab and they indicate that all positives are being sent to a central lab for genome sequencing to see if there is any variant COVID-19 illness developing in our state. Pain is severe at this point time again. He will be given Dilaudid 1.5 mg IV. Departure - Departure Time of Disposition: 11:29 Disposition: Home, Self-Care 01 Condition: Fair Clinical Impression: Anterior chest wall pain - Discharge Information *PRESCRIPTION DRUG MONITORING PROGRAM REVIEWED*: Not Applicable *COPY OF PRESCRIPTION DRUG MONITORING REPORT IN PATIENT LIZBETH: Not Applicable Prescriptions: Gabapentin [Neurontin] 600 mg PO BEDTIME #14 tab oxyCODONE HCl/Acetaminophen [Percocet 10-325 mg Tablet] 1 - 2 each PO Q4H PRN #20 tablet PRN Reason: Chest wall pain relief predniSONE [Prednisone] 20 mg PO ASDIRECTED #29 tablet Diclofenac Sodium [Voltaren] 75 mg PO BIDMEALS #20 tab.cr Instructions: Chest Wall Pain, [id number] Referrals: Lauren Garza MD [Primary Care Provider] - Forms: ED Department Discharge Additional Instructions: Evaluation in the emergency room this morning in regards to persistent left anterior chest wall pain since May 15 when it developed spontaneously. He remained exquisitely tender to touch on ribs 2-5 left midclavicular line left chest wall. Multiple tests have been done including CT pulmonary angiogram 3 days ago which proved to be negative for any obvious rib abnormality and ruled out any blood clot in the lung or inflammation in the lung. There is no evidence of heart related illness either. The rib lining call the periosteum has all the nerve endings in it and they have become severely inflamed by an underlying viral illness usually coxsackievirus or acral virus. It can often last up to a full 6 weeks before it goes away. Usually it is worse the first 10 days of illness. You were treated with intravenous steroids this morning Solu- Medrol 125 mg with Dilaudid 1 mg IV and Toradol 30 mg IV for pain relief. Treatment at home is to start steroid prednisone 20 mg 3 times daily for 5 days then 1 tablet twice daily for 5 days and then 1 tablet once daily in the morning for another 4 days to complete a 14-day treatment plan. Your next tablet would be due about 4 PM today and the next one at bedtime. Suggest gabapentin 600 mg tablet at bedtime which alleviates nerve pain. Take this once daily at bedtime for 14 days. Take Voltaren 75 mg twice daily with breakfast and supper for the next 10 days to reduce inflammation. Percocet tabs 10/325 mg 1 or 2 tablets every 6 hours for pain relief while not at work or operating a motor vehicle. Expect gradual improvement in the pain over the next 4 to 5 days as the steroids and the anti-inflammatory Voltaren become effective. Sepsis Event Note (ED) - Evaluation Sepsis Screening Result: Possible Sepsis Risk - Focused Exam Vital Signs: Vital Signs Temp Pulse Resp BP Pulse Ox 05/28/20 13:30 115 H 24 H 123/112 H 92 L 05/28/20 13:26 36.3 C 110 H 20 141/100 H 94 L 05/28/20 13:15 36.6 C 107 H 20 146/115 H 93 L 05/28/20 12:09 36.5 C 63 15 120/79 97 05/28/20 10:17 86 18 153/89 H 97 05/28/20 09:29 36.6 C 103 H 21 H 116/101 H 100 - My Orders Last 24 Hours: My Active Orders 05/28/20 12:19 EKG Documentation Completion [RC] STAT 05/28/20 13:15 Nitroglycerin/D5W [Nitroglycerin 25 MG/D5W 250 ML] 25 mg in 250 ml IV TITRATE - Assessment/Plan Last 24 Hours: My Active Orders 05/28/20 12:19 EKG Documentation Completion [RC] STAT 05/28/20 13:15 Nitroglycerin/D5W [Nitroglycerin 25 MG/D5W 250 ML] 25 mg in 250 ml IV TITRATE
[2020-05-28] MEDS ORDERED: HYDROmorphone 1 MG/ML Syringe IVPUSH ONE ×4 (10:05→14:22)
[2020-05-28] MEDS ORDERED: methylPREDNISolone Sodium Succinate 125 MG/2 ML SDV IVPUSH ONE (10:06)
[2020-05-28] MEDS ORDERED: Ketorolac 30 MG/ML SDV IVPUSH SCH (10:15)
[2020-05-28] MEDS: Dextrose 5%-0.9% NaCl 1,000 ML IV SCH ×2 (10:17→20:05)
[2020-05-28] MEDS ORDERED: LORazepam 2 MG/ML SDV IV ONE ×2 (10:44→13:34)
[2020-05-28] MEDS ORDERED: fentaNYL 100 MCG/2 ML SDV IVPUSH ONE (12:04)
[2020-05-28] MEDS ORDERED: Aspirin 81 MG Tab.Chew PO ONE (13:06)
[2020-05-28] MEDS ORDERED: Furosemide 40 MG/4 ML VIAL IVPUSH ONE (13:07)
--- NOTE | 2020-05-28 13:08 | CR ---
Chest: Portable view of the chest was obtained. Comparison: Prior chest CT study of 05/25/20. Chest x-ray 05/15/20 is also available. Heart size and mediastinum are normal. Slightly limited inspiratory effort is seen causing mild increased lung markings. Lungs otherwise are grossly clear. Bony structures are unremarkable. Impression: 1. Lung markings are increased most likely relating to poor inspiratory study. 2. Nothing acute is otherwise appreciated. Diagnostic code #2
[2020-05-28] MEDS ORDERED: Nitroglycerin/D5W 25 MG/250 ML BOTTLE IV SCH (13:15)
[2020-05-28] MEDS ORDERED: Gabapentin 600 MG Tab PO ONE (13:35)
[2020-05-28] MEDS ORDERED: Ibuprofen 800 MG Tab PO ONE (13:35)
--- NOTE | 2020-05-28 17:23 | PCM.HP.2 ---
H&P History of Present Illness - General Date of Service: 05/28/20 Admit Problem/Dx: Admission Diagnosis/Problem Admission Diagnosis/Problem Chest pain Source of Information: Patient, Old Records, Provider, RN Notes Reviewed History Limitations: Reports: No Limitations - History of Present Illness Initial Comments - Free Text/Narative: This is a 44 yo white male with past medical hx/o Impaired Hearing, Hx/o Renal Stone, Childhood Meningitis and Obesity who comes in for lingering anterior chest pain that has been going on on an doff since April of this year. He has been evaluated multiple times by numerous providers with benign work up. He states he was in our ED 3 days ago with similar complaints. CT scan was negative and basic cardiac work up was negative. He was sent home with Naproxen and Percocet but w/o improvement of his symptoms. His chest pain is associated with shortness of breath, difficulty catching his air, and pleuritic pain. 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 When he is in town, he lives with other guys in a man camp. He denies having fever of chills but feels fatigue and tired. No signs or symptoms of upper respiratory symptoms. No GI/ complaints. No history of GERD. In ED his O2 sat drops in the upper 80s once. He is other araujo sating adequately in the low 90s on RA. His initial work up shows a CBC remarkable for MCV of 92.7, Neutrophils of 78.3%, Lymphocytes of 17.1%, and Monocytes% of 2.7. His coagulation studies are within normal limits. His chemistry is significant for BS of 129, and LA of 2.5. His troponin x2 is wnl. CKMB and CRP are both wnl. His chest x-ray shows increased pulmonary lung markings. His covid-19 rapid test is positive. Patient symptom is reproducible with manual palpation. He is coming for further management of covid-19 re-infection and evaluation of chest pain. Left Chest Pain Score (Numeric/FACES): 9 - Related Data Allergies/Adverse Reactions: Allergies Allergy/AdvReac Type Severity Reaction Status Date / Time No Known Allergies Allergy Verified 05/28/20 18:01 Home Medications: Home Meds Albuterol [Proventil HFA] 2 puff INH Q4H PRN #1 inhaler 05/25/20 [Rx] Naproxen 440 mg PO BID 05/25/20 [History] oxyCODONE 5 mg PO Q6HR PRN #10 tab 05/25/20 [Rx] tiZANidine [Zanaflex] 4 mg PO TID PRN 05/25/20 [History] Past Medical History - Past Health History Medical/Surgical History: Denies Medical/Surgical History HEENT History: Reports: Hard of Hearing Genitourinary History: Reports: Renal Calculus Musculoskeletal History: Reports: Fracture Neurological History: Reports: Other (See Below) Other Neuro History: 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 Endocrine/Metabolic History: Reports: Obesity/BMI 30+ - Infectious Disease History Infectious Disease History: Reports: Chicken Pox, Measles, Mumps, Novel Coronavirus - Past Surgical History HEENT Surgical History: Reports: Tonsillectomy, Other (See Below) Other HEENT Surgeries/Procedures: mastoid removal GI Surgical History: Reports: ERCP Male Surgical History: Reports: Lithotripsy ([facility]) Musculoskeletal Surgical History: Reports: Arthroscopic Knee, Other (See Below) Other Musculoskeletal Surgeries/Procedures:: knee surgery right Social & Family History - Family History Family Medical History: No Pertinent Family History - Tobacco Use Tobacco Use Status *Q: Never Tobacco User - Caffeine Use Caffeine Use: Reports: Coffee, Soda Caffeine Use Comment: occationally - Recreational Drug Use Recreational Drug Use: No - Living Situation & Occupation Living situation: Reports: , with Spouse, with Family (2 kids) Occupation: Employed ([employer]) H&P Review of Systems - Review of Systems: Review Of Systems: See Below General: Reports: Malaise, Fatigue. Denies: Fever, Chills HEENT: Reports: Contact Lenses Pulmonary: Reports: Shortness of Breath, Pleuritic Chest Pain Cardiovascular: Reports: Chest Pain, Dyspnea on Exertion. Denies: Edema, Lightheadedness Gastrointestinal: Denies: Abdominal Pain, Nausea, Vomiting Genitourinary: Reports: No Symptoms Musculoskeletal: Denies: Joint Pain Skin: Denies: Cyanosis, Pallor Psychiatric: Denies: Confusion, Depression, Anxiety Neurological: Denies: Dizziness, Difficulty Walking, Weakness Hematologic/Lymphatic: Reports: No Symptoms Immunologic: Reports: No Symptoms Exam - Exam Exam: See Below - Vital Signs Vital Signs: Last Vital Signs Temp 37.1 C 05/28/20 17:20 Pulse 115 H 05/28/20 13:30 Resp 20 05/28/20 17:20 BP 149/110 H 05/28/20 17:20 Pulse Ox 94 L 05/28/20 17:20 Weight: 138.346 kg - Exam General: Alert, Oriented, Cooperative, Other (Obese) HEENT: Conjunctiva Clear, EACs Clear, EOMI, Hearing Intact, Mucosa Moist & Marked Tree, Nares Patent, Normal Nasal Septum, Posterior Pharynx Clear, Pupils Reactive, TMs Clear Neck: Supple, Trachea Midline Lungs: Normal Respiratory Effort, Decreased Breath Sounds, Other (chest pain with palpation) Cardiovascular: Regular Rate, Regular Rhythm GI/Abdominal Exam: Normal Bowel Sounds, Soft, Non-Tender, No Organomegaly, No Abnormal Bruit (Male) Exam: Deferred Rectal (Males) Exam: Deferred Back Exam: Normal Inspection, Full Range of Motion Extremities: Normal Inspection, Normal Range of Motion, Non-Tender, No Pedal Edema, Normal Capillary Refill Peripheral Pulses: 2+: Dorsalis Pedis (L), Dorsalis Pedis (R) Skin: Warm, Dry, Intact Neuro Extensive - Mental Status: Oriented x3, Normal Cognition, Memory Intact Neuro Extensive - Motor, Sensory, Reflexes: CN II-XII Intact, Normal Gait DTR: 2+: Achilles (L), Achilles (R) Psychiatric: Alert, Normal Affect, Normal Mood - Patient Data Lab Results Last 24 hrs: Laboratory Results - last 24 hr 05/28/20 05/28/20 05/28/20 Range/Units 12:38 12:38 12:38 WBC 7.53 (4.23-9.07) K/mm3 RBC 4.68 (4.63-6.08) M/mm3 Hgb 14.6 (13.7-17.5) gm/dl Hct 43.4 (40.1-51.0) % MCV 92.7 H (79.0-92.2) fl MCH 31.2 (25.7-32.2) pg MCHC 33.6 (32.2-35.5) g/dl RDW Std Deviation 40.9 (35.1-43.9) fL Plt Count 279 (163-337) K/mm3 MPV 10.0 (9.4-12.3) fl Neut % (Auto) 78.3 H (34.0-67.9) % Lymph % (Auto) 17.1 L (21.8-53.1) % [place] % (Auto) 2.7 L (5.3-12.2) % Eos % (Auto) 1.1 (0.8-7.0) Baso % (Auto) 0.5 (0.1-1.2) % Neut # (Auto) 5.90 H (1.78-5.38) K/mm3 Lymph # (Auto) 1.29 L (1.32-3.57) K/mm3 [place] # (Auto) 0.20 L (0.30-0.82) K/mm3 Eos # (Auto) 0.08 (0.04-0.54) K/mm3 Baso # (Auto) 0.04 (0.01-0.08) K/mm3 PT 10.9 (9.7-12.0) SECONDS INR 1.02 APTT 25.9 (21.7-31.4) SECONDS D-Dimer, Quantitative (0.19-0.50) mg/L Sodium 141 (136-145) mEq/L Potassium 4.2 (3.5-5.1) mEq/L Chloride 105 (98-107) mEq/L Carbon Dioxide 26 (21-32) mEq/L Anion Gap 14.2 (5-15) BUN 18 (7-18) mg/dL Creatinine 1.2 (0.7-1.3) mg/dL Est Cr Clr Drug Dosing 89.43 mL/min Estimated GFR (MDRD) > 60 (>60) mL/min BUN/Creatinine Ratio 15.0 (14-18) Glucose 129 H (74-106) mg/dL Calcium 8.8 (8.5-10.1) mg/dL Magnesium (1.8-2.4) mg/dl Total Bilirubin 0.3 (0.2-1.0) mg/dL AST 21 (15-37) U/L ALT 46 (16-63) U/L Alkaline Phosphatase 75 (46-116) U/L CK-MB (CK-2) 1.2 (0-3.6) ng/ml Troponin I < 0.017 (0.00-0.056) ng/mL Total Protein 7.9 (6.4-8.2) g/dl Albumin 4.1 (3.4-5.0) g/dl Globulin 3.8 gm/dL Albumin/Globulin Ratio 1.1 (1-2) SARS-CoV-2 RNA (SHERRELL) (NEGATIVE) 05/28/20 05/28/20 05/28/20 Range/Units 12:38 12:38 13:22 WBC (4.23-9.07) K/mm3 RBC (4.63-6.08) M/mm3 Hgb (13.7-17.5) gm/dl Hct (40.1-51.0) % MCV (79.0-92.2) fl MCH (25.7-32.2) pg MCHC (32.2-35.5) g/dl RDW Std Deviation (35.1-43.9) fL Plt Count (163-337) K/mm3 MPV (9.4-12.3) fl Neut % (Auto) (34.0-67.9) % Lymph % (Auto) (21.8-53.1) % [place] % (Auto) (5.3-12.2) % Eos % (Auto) (0.8-7.0) Baso % (Auto) (0.1-1.2) % Neut # (Auto) (1.78-5.38) K/mm3 Lymph # (Auto) (1.32-3.57) K/mm3 [place] # (Auto) (0.30-0.82) K/mm3 Eos # (Auto) (0.04-0.54) K/mm3 Baso # (Auto) (0.01-0.08) K/mm3 PT (9.7-12.0) SECONDS INR APTT (21.7-31.4) SECONDS D-Dimer, Quantitative 0.36 (0.19-0.50) mg/L Sodium (136-145) mEq/L Potassium (3.5-5.1) mEq/L Chloride (98-107) mEq/L Carbon Dioxide (21-32) mEq/L Anion Gap (5-15) BUN (7-18) mg/dL Creatinine (0.7-1.3) mg/dL Est Cr Clr Drug Dosing mL/min Estimated GFR (MDRD) (>60) mL/min BUN/Creatinine Ratio (14-18) Glucose (74-106) mg/dL Calcium (8.5-10.1) mg/dL Magnesium 2.0 (1.8-2.4) mg/dl Total Bilirubin (0.2-1.0) mg/dL AST (15-37) U/L ALT (16-63) U/L Alkaline Phosphatase (46-116) U/L CK-MB (CK-2) (0-3.6) ng/ml Troponin I (0.00-0.056) ng/mL Total Protein (6.4-8.2) g/dl Albumin (3.4-5.0) g/dl Globulin gm/dL Albumin/Globulin Ratio (1-2) SARS-CoV-2 RNA (SHERRELL) Positive H (NEGATIVE) Result Diagrams: 05/30/20 05:24 05/30/20 05:24 Sepsis Event Note - Evaluation Sepsis Screening Result: Sepsis Risk - Focused Exam Vital Signs: Vital Signs Temp Pulse Resp BP Pulse Ox 05/28/20 17:20 37.1 C 20 149/110 H 94 L 05/28/20 13:30 115 H 24 H 123/112 H 92 L 05/28/20 13:26 36.3 C 110 H 20 141/100 H 94 L 05/28/20 13:15 36.6 C 107 H 20 146/115 H 93 L 05/28/20 12:09 36.5 C 63 15 120/79 97 05/28/20 10:17 86 18 153/89 H 97 05/28/20 09:29 36.6 C 103 H 21 H 116/101 H 100 Problem List Initiated/Reviewed/Updated: Yes Orders Last 24hrs: Active Orders 24 hr Category Date Time Status Admission Status [Patient Status] [ADT] Routine ADT 05/28/20 16:29 Active EKG Documentation Completion [RC] STAT Care 05/28/20 12:19 Active Dextrose 5%-0.9% NaCl [Dextrose 5%-Normal Saline] 1,000 Med 05/28/20 10:15 Active ml IV ASDIRECTED Ketorolac [Toradol] Med 05/28/20 10:15 Active 30 mg IVPUSH ONETIME Nitroglycerin/D5W [Nitroglycerin 25 MG/D5W 250 ML] Med 05/28/20 13:15 Active 25 mg in 250 ml IV TITRATE Medication Orders Dextrose/Sodium Chloride (Dextrose 5%-Normal Saline) 1,000 mls @ 500 mls/hr IV ASDIRECTED CHERRI Last Admin: 05/28/20 10:17 Dose: 500 mls/hr Documented by: LORIE Nitroglycerin/Dextrose (Nitroglycerin 25 Mg/D5w 250 Ml) 25 mg in 250 mls @ 6 mls/hr IV TITRATE CHERRI; Protocol Last Admin: 05/28/20 13:16 Dose: 10 mcg/min, 6 mls/hr Documented by: LINDSEY Ketorolac Tromethamine (Toradol) 30 mg IVPUSH ONETIME CHERRI Last Admin: 05/28/20 10:16 Dose: 30 mg Documented by: LORIE Assessment/Plan Comment:: This is a 44 yo white male with past medical hx/o Impaired Hearing, Hx/o Renal Stone, Childhood Meningitis and Obesity who comes in for lingering anterior chest pain that has been going on on an doff since April of this year. Assessment: Acute: Early developing sepsis 2/2 Covid-19 Infection -Meets criteria: Tachycardic with HR in the teen, tachypneic with RR in the mid 20s, and LA of 2.5 -Plan: Sepsis protocol Chest pain r/o ACS/PE Costochondritis Query Acute Pyrosis Sinus tachycardia with HR of 113 -Has been going on since April of this year -No family hx/o premature CAD or hx/o GERD -Symptoms has no specific trigger -Nothing makes it better or worse -He has seen by multiple providers for it -Was here in ED 3 days ago; negative for PE and basic cardiac work up -Sent home with Naproxen and Percocet but w/o improvement of symptom -EKG shows sinus tachy cardia; no ST elevation in all leads to suggest pericarditis -Troponin x 2 negative -GI cocktail and carbonated soda -Plan: ACS work up and 2D echo in AM. CTA for PE and intra-thoracic abnormality Covid-19 Re-infection -He was infected by Covid-19 in Dec -He got over it w/o treatment -Rapid test positive today -D-dimer is wnl; LA is 2.5; CRP wml -LDH and Ferritin are pending -Chest x-ray shows increased lung markings -ProBNP is pending -Unfortunately no test can be done to screen for Covid-19 variants: [place], [place], and [place] strains -Briefly discussed case with Dr. Marissa ESCAMILLA specialist in [facility]. She agreed with remdesivir and dexamethasone therapy. -Plan: Consider Actemra therapy if no response to Verklury/Dexa combo regimen. Vit D level and Thyroid Panel. Inflammatory markers. Zinc supplement. Accelerated HTN -Carries no hx/o HTN -Documented BPs of 116/101 and 146/115 mmHg -However he is in significant pain -Optimize pain regimen -PRN Hydralazine for BP > 140/90 mmHg Class II Obese -BMI of 39.4 -Dietary consult for weight management -A1C level Chronic: Impaired Hearing, Hx/o Renal Stone, Childhood Meningitis and Obesity Plan: Admit to [facility]. Isolation protocol due to covid-19 reinfection. Inflammatory markers. Veklury for 5 days and Dexa for 10 days. No indication for IV antibiotics. Chest x-ray shows no obvious infiltrates. Actemra if no response to combo Veklury/Dexa. ACS work up. Lipid panel and 2D echo in AM. NPO mid night. Lexiscan/Nuclear stress test in AM. DVT prophylaxis: Lovenox 40 mg SubQ BID. GI prophylaxis: H2B. Additional orders as above. 1951: Chest CTA is negative for PE. Nothing acute is appreciated. - Mortality Measure Prognosis:: Good
[2020-05-28] MEDS ORDERED: HYDROmorphone 0.5 MG/0.5 ML Syringe IVPUSH PRN ×2 (17:45→18:29)
[2020-05-28] MEDS ORDERED: Promethazine 12.5 MG in Sodium Chloride 0.9% 50 ML IV PRN (17:45)
[2020-05-28] MEDS ORDERED: Albuterol/Ipratropium 3.0-0.5 MG/3 ML Neb Soln NEB PRN (17:45)
[2020-05-28] MEDS ORDERED: Acetaminophen 650 MG Supp RECTAL PRN (17:45)
[2020-05-28] MEDS ORDERED: Ketorolac 30 MG/ML SDV IV PRN (17:45)
[2020-05-28] MEDS ORDERED: Bisacodyl 5 MG Tab PO PRN (17:45)
[2020-05-28] MEDS ORDERED: Polyethylene Glycol 3350 Powder 17 GM Packet PO PRN (17:45)
[2020-05-28] MEDS: oxyCODONE 5 MG Tab PO PRN (17:53)
[2020-05-28] MEDS ORDERED: Iopamidol 755 Mg/ML 100 ML Bottle IVPUSH ONE (17:59)
[2020-05-28] MEDS ORDERED: Sodium Chloride 0.9% 10 ML Syringe FLUSH SCH (18:00)
[2020-05-28] MEDS ORDERED: Sodium Chloride 0.9% 100 ML IV SCH (18:00)
[2020-05-28] MEDS ORDERED: Alum Hydrox/Mag Hydrox/Simeth 30 ML, Lidocaine 2% 15 ML PO ONE ×2 (18:26)
[2020-05-28] MEDS ORDERED: Sodium Chloride 0.9% 1,000 ML IV ONE (18:27)
[2020-05-28] MEDS: LORazepam 2 MG/ML SDV IV PRN (18:41)
--- NOTE | 2020-05-28 19:02 | CT ---
CT chest Technique: Multiple axial sections through the chest were obtained. Intravenous contrast was utilized. Reconstructed coronal and sagittal images were obtained. Comparison: Prior CT chest of 05/25/20. Findings: Small portion of the visualized upper abdominal structures show no discrete abnormality. No pericardial thickening is seen. Thoracic aorta shows no aneurysm. Pulmonary arteries are within normal limits. No axillary adenopathy is appreciated. Lungs are clear with no acute parenchymal change. No pleural effusions are seen. No pneumothorax is noted. Pulmonary embolism windows were obtained which show no findings of pulmonary embolism. Bone window settings were reviewed which show mild degenerative change within the spine. No acute osseous finding is appreciated. Impression: 1. No findings of pulmonary embolism. 2. Nothing acute is appreciated on CT study of the chest. 3. No change is seen from previous chest CT. Diagnostic code #1
[2020-05-28] MEDS ORDERED: guaiFENesin/Dextromethorphan 100-10 MG/5 ML Soln 5 ML Cup PO PRN (19:49)
[2020-05-28] MEDS ORDERED: REMDESIVIR 200 MG in Sodium Chloride 0.9% 250 ML IV ONE (20:00)
[2020-05-28] MEDS ORDERED: hydrALAZINE 20 MG/ML SDV IVPUSH PRN (20:05)
[2020-05-28] MEDS ORDERED: Naproxen 500 MG Tab PO SCH (21:00)
[2020-05-28] MEDS: HYDROmorphone 1 MG/ML Syringe IVPUSH PRN (22:08)
[2020-05-28] MEDS: Enoxaparin 40 MG/0.4 ML Syringe SUBCUT SCH (22:13)
[2020-05-28] MEDS: Naproxen 500 MG Tab PO SCH (22:15)
[2020-05-28] MEDS: tiZANidine 4 MG Tab PO PRN (22:16)
[2020-05-28] MEDS: Zolpidem 5 MG Tab PO PRN (22:17)
[2020-05-28] MEDS: Sodium Chloride 0.9% 1,000 ML IV SCH (23:05)
[2020-05-29] MEDS: HYDROmorphone 1 MG/ML Syringe IVPUSH PRN ×6 (03:07→21:01)
[2020-05-29] MEDS: LORazepam 2 MG/ML SDV IV PRN ×2 (03:08→11:10)
[2020-05-29] MEDS ORDERED: Furosemide 20 MG/2 ML VIAL IVPUSH ONE (05:00)
[2020-05-29] MEDS: Enoxaparin 40 MG/0.4 ML Syringe SUBCUT SCH (08:32)
[2020-05-29] MEDS: Sodium Chloride 0.9% 1,000 ML IV SCH (08:33)
[2020-05-29] MEDS: Naproxen 500 MG Tab PO SCH (08:41)
[2020-05-29] MEDS: oxyCODONE 5 MG Tab PO PRN ×2 (08:42→21:00)
[2020-05-29] MEDS: Gabapentin 300 MG Cap PO SCH ×2 (08:43→21:00)
[2020-05-29] MEDS: Zinc Sulfate 220 MG Cap PO SCH (08:43)
[2020-05-29] MEDS ORDERED: Dexamethasone 4 MG Tab PO SCH (09:00)
[2020-05-29] MEDS ORDERED: Dexamethasone 10 MG/ML SDV IVPUSH SCH (09:00)
--- NOTE | 2020-05-29 10:42 | PCM.PN ---
- General Info Date of Service: 05/29/20 Admission Dx/Problem (Free Text): Admission Diagnosis/Problem Admission Diagnosis/Problem Chest pain Subjective Update: Roberto Carlos continues to complain of left-sided chest pain. He does have some milder, but still significant pain on the right side of the chest. Left-sided chest pain is severe. Is worse with movement. He states it is not necessarily worse with taking a deep breath but it feels like it is hard to take a deep breath. Appetite is still good. He was started on remdesivir and dexamethasone. Functional Status: Denies: Pain Controlled - Review of Systems General: Reports: No Symptoms HEENT: Reports: No Symptoms Pulmonary: Reports: Shortness of Breath Cardiovascular: Reports: No Symptoms Gastrointestinal: Reports: No Symptoms Musculoskeletal: Reports: No Symptoms Skin: Reports: No Symptoms Neurological: Reports: No Symptoms - Patient Data Vitals - Most Recent: Last Vital Signs Temp 97.7 F 05/29/20 08:52 Pulse 90 05/29/20 08:52 Resp 20 05/29/20 08:52 BP 122/77 05/29/20 08:52 Pulse Ox 96 05/29/20 08:52 Weight - Most Recent: 310 lb 1.6 oz I&O - Last 24 Hours: Intake & Output 05/28/20 05/29/20 05/29/20 22:59 06:59 14:59 Intake Total 120 5390 460 Output Total 700 1400 Balance -580 3990 460 Lab Results Last 24 Hours: Laboratory Results - last 24 hr 05/28/20 05/28/20 05/28/20 Range/Units 12:38 12:38 12:38 WBC 7.53 (4.23-9.07) K/mm3 RBC 4.68 (4.63-6.08) M/mm3 Hgb 14.6 (13.7-17.5) gm/dl Hct 43.4 (40.1-51.0) % MCV 92.7 H (79.0-92.2) fl MCH 31.2 (25.7-32.2) pg MCHC 33.6 (32.2-35.5) g/dl RDW Std Deviation 40.9 (35.1-43.9) fL Plt Count 279 (163-337) K/mm3 MPV 10.0 (9.4-12.3) fl Neut % (Auto) 78.3 H (34.0-67.9) % Lymph % (Auto) 17.1 L (21.8-53.1) % [place] % (Auto) 2.7 L (5.3-12.2) % Eos % (Auto) 1.1 (0.8-7.0) Baso % (Auto) 0.5 (0.1-1.2) % Neut # (Auto) 5.90 H (1.78-5.38) K/mm3 Lymph # (Auto) 1.29 L (1.32-3.57) K/mm3 [place] # (Auto) 0.20 L (0.30-0.82) K/mm3 Eos # (Auto) 0.08 (0.04-0.54) K/mm3 Baso # (Auto) 0.04 (0.01-0.08) K/mm3 Manual Slide Review ESR (0-15) mm/hr PT 10.9 (9.7-12.0) SECONDS INR 1.02 APTT 25.9 (21.7-31.4) SECONDS D-Dimer, Quantitative (0.19-0.50) mg/L Sodium 141 (136-145) mEq/L Potassium 4.2 (3.5-5.1) mEq/L Chloride 105 (98-107) mEq/L Carbon Dioxide 26 (21-32) mEq/L Anion Gap 14.2 (5-15) BUN 18 (7-18) mg/dL Creatinine 1.2 (0.7-1.3) mg/dL Est Cr Clr Drug Dosing 89.43 mL/min Estimated GFR (MDRD) > 60 (>60) mL/min BUN/Creatinine Ratio 15.0 (14-18) Glucose 129 H (74-106) mg/dL POC Glucose (70-105) mg/dL Lactic Acid (0.4-2.0) mmol/L Calcium 8.8 (8.5-10.1) mg/dL Magnesium (1.8-2.4) mg/dl Total Bilirubin 0.3 (0.2-1.0) mg/dL AST 21 (15-37) U/L ALT 46 (16-63) U/L Alkaline Phosphatase 75 (46-116) U/L Creatine Kinase (39-308) U/L CK-MB (CK-2) 1.2 (0-3.6) ng/ml Troponin I < 0.017 (0.00-0.056) ng/mL C-Reactive Protein (<1.0) mg/dL Total Protein 7.9 (6.4-8.2) g/dl Albumin 4.1 (3.4-5.0) g/dl Globulin 3.8 gm/dL Albumin/Globulin Ratio 1.1 (1-2) Triglycerides (<150) mg/dL Cholesterol (<200) mg/dL LDL Cholesterol Direct (<100) mg/dL HDL Cholesterol (40-59) mg/dL Free T4 (0.76-1.46) ng/dL TSH 3rd Generation (0.358-3.74) uIU/mL Urine Color (Yellow) Urine Appearance (Clear) Urine pH (5.0-8.0) Ur Specific [place] (1.005-1.030) Urine Protein (Negative) Urine Glucose (UA) (Negative) Urine Ketones (Negative) Urine Occult Blood (Negative) Urine Nitrite (Negative) Urine Bilirubin (Negative) Urine Urobilinogen (0.2-1.0) Ur Leukocyte Esterase (Negative) Urine RBC (0-5) /hpf Urine WBC (0-5) /hpf Ur Squamous Epith Cells (0-5) /hpf Urine Bacteria (FEW) /hpf Urine Mucus (FEW) /hpf SARS-CoV-2 RNA (SHERRELL) (NEGATIVE) 05/28/20 05/28/20 05/28/20 Range/Units 12:38 12:38 12:38 WBC (4.23-9.07) K/mm3 RBC (4.63-6.08) M/mm3 Hgb (13.7-17.5) gm/dl Hct (40.1-51.0) % MCV (79.0-92.2) fl MCH (25.7-32.2) pg MCHC (32.2-35.5) g/dl RDW Std Deviation (35.1-43.9) fL Plt Count (163-337) K/mm3 MPV (9.4-12.3) fl Neut % (Auto) (34.0-67.9) % Lymph % (Auto) (21.8-53.1) % [place] % (Auto) (5.3-12.2) % Eos % (Auto) (0.8-7.0) Baso % (Auto) (0.1-1.2) % Neut # (Auto) (1.78-5.38) K/mm3 Lymph # (Auto) (1.32-3.57) K/mm3 [place] # (Auto) (0.30-0.82) K/mm3 Eos # (Auto) (0.04-0.54) K/mm3 Baso # (Auto) (0.01-0.08) K/mm3 Manual Slide Review ESR 4 (0-15) mm/hr PT (9.7-12.0) SECONDS INR APTT (21.7-31.4) SECONDS D-Dimer, Quantitative 0.36 (0.19-0.50) mg/L Sodium (136-145) mEq/L Potassium (3.5-5.1) mEq/L Chloride (98-107) mEq/L Carbon Dioxide (21-32) mEq/L Anion Gap (5-15) BUN (7-18) mg/dL Creatinine (0.7-1.3) mg/dL Est Cr Clr Drug Dosing mL/min Estimated GFR (MDRD) (>60) mL/min BUN/Creatinine Ratio (14-18) Glucose (74-106) mg/dL POC Glucose (70-105) mg/dL Lactic Acid (0.4-2.0) mmol/L Calcium (8.5-10.1) mg/dL Magnesium 2.0 (1.8-2.4) mg/dl Total Bilirubin (0.2-1.0) mg/dL AST (15-37) U/L ALT (16-63) U/L Alkaline Phosphatase (46-116) U/L Creatine Kinase (39-308) U/L CK-MB (CK-2) (0-3.6) ng/ml Troponin I (0.00-0.056) ng/mL C-Reactive Protein (<1.0) mg/dL Total Protein (6.4-8.2) g/dl Albumin (3.4-5.0) g/dl Globulin gm/dL Albumin/Globulin Ratio (1-2) Triglycerides (<150) mg/dL Cholesterol (<200) mg/dL LDL Cholesterol Direct (<100) mg/dL HDL Cholesterol (40-59) mg/dL Free T4 (0.76-1.46) ng/dL TSH 3rd Generation (0.358-3.74) uIU/mL Urine Color (Yellow) Urine Appearance (Clear) Urine pH (5.0-8.0) Ur Specific [place] (1.005-1.030) Urine Protein (Negative) Urine Glucose (UA) (Negative) Urine Ketones (Negative) Urine Occult Blood (Negative) Urine Nitrite (Negative) Urine Bilirubin (Negative) Urine Urobilinogen (0.2-1.0) Ur Leukocyte Esterase (Negative) Urine RBC (0-5) /hpf Urine WBC (0-5) /hpf Ur Squamous Epith Cells (0-5) /hpf Urine Bacteria (FEW) /hpf Urine Mucus (FEW) /hpf SARS-CoV-2 RNA (SHERRELL) (NEGATIVE) 05/28/20 05/28/20 05/28/20 Range/Units 13:22 17:44 17:44 WBC (4.23-9.07) K/mm3 RBC (4.63-6.08) M/mm3 Hgb (13.7-17.5) gm/dl Hct (40.1-51.0) % MCV (79.0-92.2) fl MCH (25.7-32.2) pg MCHC (32.2-35.5) g/dl RDW Std Deviation (35.1-43.9) fL Plt Count (163-337) K/mm3 MPV (9.4-12.3) fl Neut % (Auto) (34.0-67.9) % Lymph % (Auto) (21.8-53.1) % [place] % (Auto) (5.3-12.2) % Eos % (Auto) (0.8-7.0) Baso % (Auto) (0.1-1.2) % Neut # (Auto) (1.78-5.38) K/mm3 Lymph # (Auto) (1.32-3.57) K/mm3 [place] # (Auto) (0.30-0.82) K/mm3 Eos # (Auto) (0.04-0.54) K/mm3 Baso # (Auto) (0.01-0.08) K/mm3 Manual Slide Review ESR (0-15) mm/hr PT (9.7-12.0) SECONDS INR APTT (21.7-31.4) SECONDS D-Dimer, Quantitative (0.19-0.50) mg/L Sodium (136-145) mEq/L Potassium (3.5-5.1) mEq/L Chloride (98-107) mEq/L Carbon Dioxide (21-32) mEq/L Anion Gap (5-15) BUN (7-18) mg/dL Creatinine (0.7-1.3) mg/dL Est Cr Clr Drug Dosing mL/min Estimated GFR (MDRD) (>60) mL/min BUN/Creatinine Ratio (14-18) Glucose (74-106) mg/dL POC Glucose (70-105) mg/dL Lactic Acid 2.5 H* (0.4-2.0) mmol/L Calcium (8.5-10.1) mg/dL Magnesium (1.8-2.4) mg/dl Total Bilirubin (0.2-1.0) mg/dL AST (15-37) U/L ALT (16-63) U/L Alkaline Phosphatase (46-116) U/L Creatine Kinase (39-308) U/L CK-MB (CK-2) (0-3.6) ng/ml Troponin I (0.00-0.056) ng/mL C-Reactive Protein < 0.2 (<1.0) mg/dL Total Protein (6.4-8.2) g/dl Albumin (3.4-5.0) g/dl Globulin gm/dL Albumin/Globulin Ratio (1-2) Triglycerides (<150) mg/dL Cholesterol (<200) mg/dL LDL Cholesterol Direct (<100) mg/dL HDL Cholesterol (40-59) mg/dL Free T4 (0.76-1.46) ng/dL TSH 3rd Generation (0.358-3.74) uIU/mL Urine Color (Yellow) Urine Appearance (Clear) Urine pH (5.0-8.0) Ur Specific [place] (1.005-1.030) Urine Protein (Negative) Urine Glucose (UA) (Negative) Urine Ketones (Negative) Urine Occult Blood (Negative) Urine Nitrite (Negative) Urine Bilirubin (Negative) Urine Urobilinogen (0.2-1.0) Ur Leukocyte Esterase (Negative) Urine RBC (0-5) /hpf Urine WBC (0-5) /hpf Ur Squamous Epith Cells (0-5) /hpf Urine Bacteria (FEW) /hpf Urine Mucus (FEW) /hpf SARS-CoV-2 RNA (SHERRELL) Positive H (NEGATIVE) 05/28/20 05/28/20 05/28/20 Range/Units 17:44 20:41 20:41 WBC (4.23-9.07) K/mm3 RBC (4.63-6.08) M/mm3 Hgb (13.7-17.5) gm/dl Hct (40.1-51.0) % MCV (79.0-92.2) fl MCH (25.7-32.2) pg MCHC (32.2-35.5) g/dl RDW Std Deviation (35.1-43.9) fL Plt Count (163-337) K/mm3 MPV (9.4-12.3) fl Neut % (Auto) (34.0-67.9) % Lymph % (Auto) (21.8-53.1) % [place] % (Auto) (5.3-12.2) % Eos % (Auto) (0.8-7.0) Baso % (Auto) (0.1-1.2) % Neut # (Auto) (1.78-5.38) K/mm3 Lymph # (Auto) (1.32-3.57) K/mm3 [place] # (Auto) (0.30-0.82) K/mm3 Eos # (Auto) (0.04-0.54) K/mm3 Baso # (Auto) (0.01-0.08) K/mm3 Manual Slide Review ESR (0-15) mm/hr PT (9.7-12.0) SECONDS INR APTT (21.7-31.4) SECONDS D-Dimer, Quantitative (0.19-0.50) mg/L Sodium (136-145) mEq/L Potassium (3.5-5.1) mEq/L Chloride (98-107) mEq/L Carbon Dioxide (21-32) mEq/L Anion Gap (5-15) BUN (7-18) mg/dL Creatinine (0.7-1.3) mg/dL Est Cr Clr Drug Dosing mL/min Estimated GFR (MDRD) (>60) mL/min BUN/Creatinine Ratio (14-18) Glucose (74-106) mg/dL POC Glucose (70-105) mg/dL Lactic Acid 2.7 H* (0.4-2.0) mmol/L Calcium (8.5-10.1) mg/dL Magnesium (1.8-2.4) mg/dl Total Bilirubin 0.3 (0.2-1.0) mg/dL AST 19 (15-37) U/L ALT 43 (16-63) U/L Alkaline Phosphatase 65 (46-116) U/L Creatine Kinase (39-308) U/L CK-MB (CK-2) (0-3.6) ng/ml Troponin I < 0.017 (0.00-0.056) ng/mL C-Reactive Protein (<1.0) mg/dL Total Protein 7.7 (6.4-8.2) g/dl Albumin 4.0 (3.4-5.0) g/dl Globulin 3.7 gm/dL Albumin/Globulin Ratio 1.1 (1-2) Triglycerides (<150) mg/dL Cholesterol (<200) mg/dL LDL Cholesterol Direct (<100) mg/dL HDL Cholesterol (40-59) mg/dL Free T4 (0.76-1.46) ng/dL TSH 3rd Generation (0.358-3.74) uIU/mL Urine Color (Yellow) Urine Appearance (Clear) Urine pH (5.0-8.0) Ur Specific [place] (1.005-1.030) Urine Protein (Negative) Urine Glucose (UA) (Negative) Urine Ketones (Negative) Urine Occult Blood (Negative) Urine Nitrite (Negative) Urine Bilirubin (Negative) Urine Urobilinogen (0.2-1.0) Ur Leukocyte Esterase (Negative) Urine RBC (0-5) /hpf Urine WBC (0-5) /hpf Ur Squamous Epith Cells (0-5) /hpf Urine Bacteria (FEW) /hpf Urine Mucus (FEW) /hpf SARS-CoV-2 RNA (SHERRELL) (NEGATIVE) 05/28/20 05/28/20 05/28/20 Range/Units 20:41 22:36 23:44 WBC (4.23-9.07) K/mm3 RBC (4.63-6.08) M/mm3 Hgb (13.7-17.5) gm/dl Hct (40.1-51.0) % MCV (79.0-92.2) fl MCH (25.7-32.2) pg MCHC (32.2-35.5) g/dl RDW Std Deviation (35.1-43.9) fL Plt Count (163-337) K/mm3 MPV (9.4-12.3) fl Neut % (Auto) (34.0-67.9) % Lymph % (Auto) (21.8-53.1) % [place] % (Auto) (5.3-12.2) % Eos % (Auto) (0.8-7.0) Baso % (Auto) (0.1-1.2) % Neut # (Auto) (1.78-5.38) K/mm3 Lymph # (Auto) (1.32-3.57) K/mm3 [place] # (Auto) (0.30-0.82) K/mm3 Eos # (Auto) (0.04-0.54) K/mm3 Baso # (Auto) (0.01-0.08) K/mm3 Manual Slide Review ESR (0-15) mm/hr PT (9.7-12.0) SECONDS INR APTT (21.7-31.4) SECONDS D-Dimer, Quantitative (0.19-0.50) mg/L Sodium (136-145) mEq/L Potassium (3.5-5.1) mEq/L Chloride (98-107) mEq/L Carbon Dioxide (21-32) mEq/L Anion Gap (5-15) BUN (7-18) mg/dL Creatinine (0.7-1.3) mg/dL Est Cr Clr Drug Dosing mL/min Estimated GFR (MDRD) (>60) mL/min BUN/Creatinine Ratio (14-18) Glucose (74-106) mg/dL POC Glucose (70-105) mg/dL Lactic Acid (0.4-2.0) mmol/L Calcium (8.5-10.1) mg/dL Magnesium (1.8-2.4) mg/dl Total Bilirubin (0.2-1.0) mg/dL AST (15-37) U/L ALT (16-63) U/L Alkaline Phosphatase (46-116) U/L Creatine Kinase 173 (39-308) U/L CK-MB (CK-2) (0-3.6) ng/ml Troponin I < 0.017 (0.00-0.056) ng/mL C-Reactive Protein (<1.0) mg/dL Total Protein (6.4-8.2) g/dl Albumin (3.4-5.0) g/dl Globulin gm/dL Albumin/Globulin Ratio (1-2) Triglycerides (<150) mg/dL Cholesterol (<200) mg/dL LDL Cholesterol Direct (<100) mg/dL HDL Cholesterol (40-59) mg/dL Free T4 (0.76-1.46) ng/dL TSH 3rd Generation (0.358-3.74) uIU/mL Urine Color Yellow (Yellow) Urine Appearance Clear (Clear) Urine pH 5.5 (5.0-8.0) Ur Specific [place] 1.020 (1.005-1.030) Urine Protein Negative (Negative) Urine Glucose (UA) Negative (Negative) Urine Ketones Negative (Negative) Urine Occult Blood Negative (Negative) Urine Nitrite Negative (Negative) Urine Bilirubin Negative (Negative) Urine Urobilinogen 0.2 (0.2-1.0) Ur Leukocyte Esterase Negative (Negative) Urine RBC Not seen (0-5) /hpf Urine WBC 0-5 (0-5) /hpf Ur Squamous Epith Cells Not seen (0-5) /hpf Urine Bacteria Rare (FEW) /hpf Urine Mucus Rare (FEW) /hpf SARS-CoV-2 RNA (SHERRELL) (NEGATIVE) 05/28/20 05/29/20 05/29/20 Range/Units 23:44 02:34 05:58 WBC 17.10 H (4.23-9.07) K/mm3 RBC 4.17 L (4.63-6.08) M/mm3 Hgb 13.1 L D (13.7-17.5) gm/dl Hct 39.5 L (40.1-51.0) % MCV 94.7 H (79.0-92.2) fl MCH 31.4 (25.7-32.2) pg MCHC 33.2 (32.2-35.5) g/dl RDW Std Deviation 43.0 (35.1-43.9) fL Plt Count 275 (163-337) K/mm3 MPV 10.4 (9.4-12.3) fl Neut % (Auto) 83.6 H (34.0-67.9) % Lymph % (Auto) 8.7 L (21.8-53.1) % [place] % (Auto) 7.3 (5.3-12.2) % Eos % (Auto) 0 L (0.8-7.0) Baso % (Auto) 0.1 (0.1-1.2) % Neut # (Auto) 14.32 H (1.78-5.38) K/mm3 Lymph # (Auto) 1.48 (1.32-3.57) K/mm3 [place] # (Auto) 1.24 H (0.30-0.82) K/mm3 Eos # (Auto) 0.00 L (0.04-0.54) K/mm3 Baso # (Auto) 0.01 (0.01-0.08) K/mm3 Manual Slide Review Abnormal smear ESR (0-15) mm/hr PT (9.7-12.0) SECONDS INR APTT (21.7-31.4) SECONDS D-Dimer, Quantitative (0.19-0.50) mg/L Sodium (136-145) mEq/L Potassium (3.5-5.1) mEq/L Chloride (98-107) mEq/L Carbon Dioxide (21-32) mEq/L Anion Gap (5-15) BUN (7-18) mg/dL Creatinine (0.7-1.3) mg/dL Est Cr Clr Drug Dosing mL/min Estimated GFR (MDRD) (>60) mL/min BUN/Creatinine Ratio (14-18) Glucose (74-106) mg/dL POC Glucose (70-105) mg/dL Lactic Acid 3.4 H* 3.2 H* (0.4-2.0) mmol/L Calcium (8.5-10.1) mg/dL Magnesium (1.8-2.4) mg/dl Total Bilirubin (0.2-1.0) mg/dL AST (15-37) U/L ALT (16-63) U/L Alkaline Phosphatase (46-116) U/L Creatine Kinase (39-308) U/L CK-MB (CK-2) (0-3.6) ng/ml Troponin I (0.00-0.056) ng/mL C-Reactive Protein (<1.0) mg/dL Total Protein (6.4-8.2) g/dl Albumin (3.4-5.0) g/dl Globulin gm/dL Albumin/Globulin Ratio (1-2) Triglycerides (<150) mg/dL Cholesterol (<200) mg/dL LDL Cholesterol Direct (<100) mg/dL HDL Cholesterol (40-59) mg/dL Free T4 (0.76-1.46) ng/dL TSH 3rd Generation (0.358-3.74) uIU/mL Urine Color (Yellow) Urine Appearance (Clear) Urine pH (5.0-8.0) Ur Specific [place] (1.005-1.030) Urine Protein (Negative) Urine Glucose (UA) (Negative) Urine Ketones (Negative) Urine Occult Blood (Negative) Urine Nitrite (Negative) Urine Bilirubin (Negative) Urine Urobilinogen (0.2-1.0) Ur Leukocyte Esterase (Negative) Urine RBC (0-5) /hpf Urine WBC (0-5) /hpf Ur Squamous Epith Cells (0-5) /hpf Urine Bacteria (FEW) /hpf Urine Mucus (FEW) /hpf SARS-CoV-2 RNA (SHERRELL) (NEGATIVE) 05/29/20 05/29/20 05/29/20 Range/Units 05:58 05:58 05:58 WBC (4.23-9.07) K/mm3 RBC (4.63-6.08) M/mm3 Hgb (13.7-17.5) gm/dl Hct (40.1-51.0) % MCV (79.0-92.2) fl MCH (25.7-32.2) pg MCHC (32.2-35.5) g/dl RDW Std Deviation (35.1-43.9) fL Plt Count (163-337) K/mm3 MPV (9.4-12.3) fl Neut % (Auto) (34.0-67.9) % Lymph % (Auto) (21.8-53.1) % [place] % (Auto) (5.3-12.2) % Eos % (Auto) (0.8-7.0) Baso % (Auto) (0.1-1.2) % Neut # (Auto) (1.78-5.38) K/mm3 Lymph # (Auto) (1.32-3.57) K/mm3 [place] # (Auto) (0.30-0.82) K/mm3 Eos # (Auto) (0.04-0.54) K/mm3 Baso # (Auto) (0.01-0.08) K/mm3 Manual Slide Review ESR (0-15) mm/hr PT (9.7-12.0) SECONDS INR APTT (21.7-31.4) SECONDS D-Dimer, Quantitative (0.19-0.50) mg/L Sodium (136-145) mEq/L Potassium (3.5-5.1) mEq/L Chloride (98-107) mEq/L Carbon Dioxide (21-32) mEq/L Anion Gap (5-15) BUN (7-18) mg/dL Creatinine (0.7-1.3) mg/dL Est Cr Clr Drug Dosing mL/min Estimated GFR (MDRD) (>60) mL/min BUN/Creatinine Ratio (14-18) Glucose (74-106) mg/dL POC Glucose (70-105) mg/dL Lactic Acid (0.4-2.0) mmol/L Calcium (8.5-10.1) mg/dL Magnesium 2.1 (1.8-2.4) mg/dl Total Bilirubin 0.2 (0.2-1.0) mg/dL AST 14 L (15-37) U/L ALT 34 (16-63) U/L Alkaline Phosphatase 62 (46-116) U/L Creatine Kinase (39-308) U/L CK-MB (CK-2) (0-3.6) ng/ml Troponin I < 0.017 (0.00-0.056) ng/mL C-Reactive Protein 0.2 (<1.0) mg/dL Total Protein 7.2 (6.4-8.2) g/dl Albumin 3.9 (3.4-5.0) g/dl Globulin 3.3 gm/dL Albumin/Globulin Ratio 1.2 (1-2) Triglycerides 144 (<150) mg/dL Cholesterol 226 H (<200) mg/dL LDL Cholesterol Direct 155 H* (<100) mg/dL HDL Cholesterol 48.0 (40-59) mg/dL Free T4 0.74 L (0.76-1.46) ng/dL TSH 3rd Generation 1.197 (0.358-3.74) uIU/mL Urine Color (Yellow) Urine Appearance (Clear) Urine pH (5.0-8.0) Ur Specific [place] (1.005-1.030) Urine Protein (Negative) Urine Glucose (UA) (Negative) Urine Ketones (Negative) Urine Occult Blood (Negative) Urine Nitrite (Negative) Urine Bilirubin (Negative) Urine Urobilinogen (0.2-1.0) Ur Leukocyte Esterase (Negative) Urine RBC (0-5) /hpf Urine WBC (0-5) /hpf Ur Squamous Epith Cells (0-5) /hpf Urine Bacteria (FEW) /hpf Urine Mucus (FEW) /hpf SARS-CoV-2 RNA (SHERRELL) (NEGATIVE) 05/29/20 05/29/20 05/29/20 Range/Units 05:58 06:57 09:10 WBC (4.23-9.07) K/mm3 RBC (4.63-6.08) M/mm3 Hgb (13.7-17.5) gm/dl Hct (40.1-51.0) % MCV (79.0-92.2) fl MCH (25.7-32.2) pg MCHC (32.2-35.5) g/dl RDW Std Deviation (35.1-43.9) fL Plt Count (163-337) K/mm3 MPV (9.4-12.3) fl Neut % (Auto) (34.0-67.9) % Lymph % (Auto) (21.8-53.1) % [place] % (Auto) (5.3-12.2) % Eos % (Auto) (0.8-7.0) Baso % (Auto) (0.1-1.2) % Neut # (Auto) (1.78-5.38) K/mm3 Lymph # (Auto) (1.32-3.57) K/mm3 [place] # (Auto) (0.30-0.82) K/mm3 Eos # (Auto) (0.04-0.54) K/mm3 Baso # (Auto) (0.01-0.08) K/mm3 Manual Slide Review ESR (0-15) mm/hr PT (9.7-12.0) SECONDS INR APTT (21.7-31.4) SECONDS D-Dimer, Quantitative (0.19-0.50) mg/L Sodium (136-145) mEq/L Potassium (3.5-5.1) mEq/L Chloride (98-107) mEq/L Carbon Dioxide (21-32) mEq/L Anion Gap (5-15) BUN (7-18) mg/dL Creatinine (0.7-1.3) mg/dL Est Cr Clr Drug Dosing mL/min Estimated GFR (MDRD) (>60) mL/min BUN/Creatinine Ratio (14-18) Glucose (74-106) mg/dL POC Glucose 118 H (70-105) mg/dL Lactic Acid 2.4 H* 1.9 (0.4-2.0) mmol/L Calcium (8.5-10.1) mg/dL Magnesium (1.8-2.4) mg/dl Total Bilirubin (0.2-1.0) mg/dL AST (15-37) U/L ALT (16-63) U/L Alkaline Phosphatase (46-116) U/L Creatine Kinase (39-308) U/L CK-MB (CK-2) (0-3.6) ng/ml Troponin I (0.00-0.056) ng/mL C-Reactive Protein (<1.0) mg/dL Total Protein (6.4-8.2) g/dl Albumin (3.4-5.0) g/dl Globulin gm/dL Albumin/Globulin Ratio (1-2) Triglycerides (<150) mg/dL Cholesterol (<200) mg/dL LDL Cholesterol Direct (<100) mg/dL HDL Cholesterol (40-59) mg/dL Free T4 (0.76-1.46) ng/dL TSH 3rd Generation (0.358-3.74) uIU/mL Urine Color (Yellow) Urine Appearance (Clear) Urine pH (5.0-8.0) Ur Specific [place] (1.005-1.030) Urine Protein (Negative) Urine Glucose (UA) (Negative) Urine Ketones (Negative) Urine Occult Blood (Negative) Urine Nitrite (Negative) Urine Bilirubin (Negative) Urine Urobilinogen (0.2-1.0) Ur Leukocyte Esterase (Negative) Urine RBC (0-5) /hpf Urine WBC (0-5) /hpf Ur Squamous Epith Cells (0-5) /hpf Urine Bacteria (FEW) /hpf Urine Mucus (FEW) /hpf SARS-CoV-2 RNA (SHERRELL) (NEGATIVE) Med Orders - Current: Current Medications Acetaminophen (Tylenol) 650 mg RECTAL Q4H PRN PRN Reason: Pain (mild 1-3) Albuterol/Ipratropium (Duoneb 3.0-0.5 Mg/3 Ml) 3 ml NEB Q4H PRN PRN Reason: Shortness Of Breath/wheezing Bisacodyl (Dulcolax) 5 mg PO DAILY PRN PRN Reason: Constipation Enoxaparin Sodium (Lovenox) 40 mg SUBCUT Q12H [facility] Last Admin: 05/29/20 08:32 Dose: 40 mg Documented by: Gabapentin (Neurontin) 300 mg PO BID [facility] Last Admin: 05/29/20 08:43 Dose: 300 mg Documented by: Guaifenesin/Phenylephrine HCl (Robitussin Dm) 10 ml PO Q4H PRN PRN Reason: Cough Hydralazine HCl (Apresoline) 20 mg IVPUSH Q4H PRN PRN Reason: Hypertension Hydromorphone HCl (Dilaudid) 2 mg IVPUSH Q2H PRN PRN Reason: Pain (severe 7-10) Last Admin: 05/29/20 10:00 Dose: 2 mg Documented by: Promethazine HCl 12.5 mg/ (Sodium Chloride) 50.5 mls @ 100 mls/hr IV Q6H PRN PRN Reason: Nausea/Vomiting Remdesivir 100 mg/ Sodium (Chloride) 100 mls @ 100 mls/hr IV Q24H [facility] Stop: 06/01/20 20:59 Sodium Chloride (Normal Saline) 1,000 mls @ 125 mls/hr IV ASDIRECTED [facility] Last Admin: 05/29/20 08:33 Dose: 125 mls/hr Documented by: Indomethacin (Indocin) 50 mg PO TIDMEALS [facility] Insulin Human Lispro (Humalog) 0 unit SUBCUT TIDAC [facility]; Protocol Last Admin: 05/29/20 07:12 Dose: Not Given Documented by: Lorazepam (Ativan) 1 mg IV Q6H PRN PRN Reason: Anxiety Last Admin: 05/29/20 03:08 Dose: 1 mg Documented by: Ondansetron HCl (Zofran) 4 mg IV Q6H PRN PRN Reason: Nausea/Vomiting Oxycodone HCl (Oxycodone) 5 mg PO Q6HR PRN PRN Reason: Pain Last Admin: 05/29/20 08:42 Dose: 5 mg Documented by: Polyethylene Glycol (Miralax) 17 gm PO DAILY PRN PRN Reason: Constipation Senna/Docusate Sodium (Senna Plus) 1 tab PO BID PRN PRN Reason: Constipation Last Admin: 05/28/20 18:56 Dose: 1 tab Documented by: Senna/Docusate Sodium (Senna Plus) 1 tab PO DAILY [facility] Last Admin: 05/29/20 08:43 Dose: 1 tab Documented by: Sodium Chloride (Saline Flush) 10 ml FLUSH ASDIRECTED [facility] Last Admin: 05/28/20 18:22 Dose: 10 ml Documented by: Tizanidine HCl (Zanaflex) 4 mg PO TID PRN PRN Reason: Spasms Last Admin: 05/28/20 22:16 Dose: 4 mg Documented by: Zinc Sulfate (Zincate) 220 mg PO DAILY [facility] Last Admin: 05/29/20 08:43 Dose: 220 mg Documented by: Zolpidem Tartrate (Ambien) 5 mg PO BEDTIME PRN PRN Reason: Sleep Last Admin: 05/28/20 22:17 Dose: 5 mg Documented by: Discontinued Medications Aspirin (Aspirin) 324 mg PO ONETIME ONE Stop: 05/28/20 13:07 Last Admin: 05/28/20 13:13 Dose: 324 mg Documented by: Al Hydroxide/Mg Hydroxide 30 (ml/ Lidocaine HCl 15 ml) 0 ml PO ONETIME ONE Stop: 05/28/20 18:27 Last Admin: 05/28/20 18:50 Dose: 45 ml Documented by: Dexamethasone (Decadron) 6 mg IVPUSH DAILY [facility] Stop: 06/07/20 09:01 Dexamethasone (Dexamethasone) 6 mg PO DAILY [facility] Last Admin: 05/29/20 08:41 Dose: 6 mg Documented by: Fentanyl (Sublimaze) 100 mcg IVPUSH ONETIME ONE Stop: 05/28/20 12:05 Last Admin: 05/28/20 12:23 Dose: 100 mcg Documented by: Furosemide (Lasix) 40 mg IVPUSH NOW ONE Stop: 05/28/20 13:08 Last Admin: 05/28/20 13:13 Dose: 40 mg Documented by: Furosemide (Lasix) 20 mg IVPUSH ONETIME ONE Stop: 05/29/20 05:01 Last Admin: 05/29/20 05:39 Dose: 20 mg Documented by: Gabapentin (Neurontin) 600 mg PO ONETIME ONE Stop: 05/28/20 13:36 Last Admin: 05/28/20 13:56 Dose: 600 mg Documented by: Hydromorphone HCl (Dilaudid) 1 mg IVPUSH ONETIME ONE Stop: 05/28/20 10:06 Last Admin: 05/28/20 10:17 Dose: 1 mg Documented by: Hydromorphone HCl (Dilaudid) 1 mg IVPUSH ONETIME ONE Stop: 05/28/20 10:45 Last Admin: 05/28/20 10:55 Dose: 1 mg Documented by: Hydromorphone HCl (Dilaudid) 1 mg IVPUSH ONETIME ONE Stop: 05/28/20 12:57 Last Admin: 05/28/20 13:03 Dose: 1 mg Documented by: Hydromorphone HCl (Dilaudid) 1.5 mg IVPUSH ONETIME ONE Stop: 05/28/20 14:23 Last Admin: 05/28/20 14:29 Dose: 1.5 mg Documented by: Hydromorphone HCl (Dilaudid) 0.5 mg IVPUSH Q2H PRN PRN Reason: Pain (severe 7-10) Hydromorphone HCl (Dilaudid) 2 mg IVPUSH Q2H PRN PRN Reason: Pain (severe 7-10) Last Admin: 05/28/20 19:26 Dose: 2 mg Documented by: Dextrose/Sodium Chloride (Dextrose 5%-Normal Saline) 1,000 mls @ 500 mls/hr IV ASDIRECTED [facility] Last Admin: 05/28/20 20:05 Dose: 500 mls/hr Documented by: Nitroglycerin/Dextrose (Nitroglycerin 25 Mg/D5w 250 Ml) 25 mg in 250 mls @ 6 mls/hr IV TITRATE [facility]; Protocol Last Admin: 05/28/20 13:16 Dose: 10 mcg/min, 6 mls/hr Documented by: Sodium Chloride (Normal Saline) 100 mls @ 60 mls/hr IV ASDIRECTED [facility] Sodium Chloride (Normal Saline) 1,000 mls @ 999 mls/hr IV ONETIME ONE Stop: 05/28/20 19:27 Last Admin: 05/28/20 18:36 Dose: 999 mls/hr Documented by: Remdesivir 200 mg/ Sodium (Chloride) 250 mls @ 250 mls/hr IV ONETIME ONE Stop: 05/28/20 20:59 Last Admin: 05/28/20 22:04 Dose: 250 mls/hr Documented by: Ibuprofen (Motrin) 800 mg PO ONETIME ONE Stop: 05/28/20 13:36 Last Admin: 05/28/20 13:56 Dose: 800 mg Documented by: Iopamidol (Isovue-370 (76%)) 100 ml IVPUSH ONETIME ONE Stop: 05/28/20 18:00 Last Admin: 05/28/20 18:21 Dose: 100 ml Documented by: Ketorolac Tromethamine (Toradol) 30 mg IVPUSH ONETIME [facility] Last Admin: 05/28/20 10:16 Dose: 30 mg Documented by: Ketorolac Tromethamine (Toradol) 30 mg IV Q6H PRN PRN Reason: Pain (moderate 4-6) Last Admin: 05/28/20 18:45 Dose: 30 mg Documented by: Lorazepam (Ativan) 0.5 mg IV ONETIME ONE Stop: 05/28/20 10:45 Last Admin: 05/28/20 10:56 Dose: 0.5 mg Documented by: Lorazepam (Ativan) 1 mg IV ONETIME ONE Stop: 05/28/20 13:35 Last Admin: 05/28/20 13:56 Dose: 1 mg Documented by: Methylprednisolone Sodium Succinate (Solu-Medrol) 125 mg IVPUSH ONETIME ONE Stop: 05/28/20 10:07 Last Admin: 05/28/20 10:16 Dose: 125 mg Documented by: Naproxen (Naprosyn) 440 mg PO BID [facility] Last Admin: 05/29/20 01:51 Dose: Not Given Documented by: Naproxen (Naprosyn) 500 mg PO BID [facility] Last Admin: 05/29/20 08:41 Dose: 500 mg Documented by: Regadenoson (Lexiscan) 0.4 mg IVPUSH ONETIME ONE Stop: 05/29/20 07:52 Last Admin: 05/29/20 10:26 Dose: Not Given Documented by: - Exam Quality Assessment: No: Supplemental Oxygen General: Alert, Oriented HEENT: Pupils Equal, Mucous Membr. Moist/[place] Neck: Supple Lungs: Clear to Auscultation, Normal Respiratory Effort Cardiovascular: Regular Rate, Regular Rhythm GI/Abdominal Exam: Normal Bowel Sounds, Soft, Non-Tender, No Distention, No Abnormal Bruit Extremities: Normal Inspection, No Pedal Edema, Normal Capillary Refill Physical Findings Comments:: Anterior chest wall tenderness consistent with costochondritis on the left. - Patient Data Lab Results Last 24 hrs: Laboratory Results - last 24 hr 05/28/20 05/28/20 05/28/20 Range/Units 12:38 12:38 12:38 WBC 7.53 (4.23-9.07) K/mm3 RBC 4.68 (4.63-6.08) M/mm3 Hgb 14.6 (13.7-17.5) gm/dl Hct 43.4 (40.1-51.0) % MCV 92.7 H (79.0-92.2) fl MCH 31.2 (25.7-32.2) pg MCHC 33.6 (32.2-35.5) g/dl RDW Std Deviation 40.9 (35.1-43.9) fL Plt Count 279 (163-337) K/mm3 MPV 10.0 (9.4-12.3) fl Neut % (Auto) 78.3 H (34.0-67.9) % Lymph % (Auto) 17.1 L (21.8-53.1) % [place] % (Auto) 2.7 L (5.3-12.2) % Eos % (Auto) 1.1 (0.8-7.0) Baso % (Auto) 0.5 (0.1-1.2) % Neut # (Auto) 5.90 H (1.78-5.38) K/mm3 Lymph # (Auto) 1.29 L (1.32-3.57) K/mm3 [place] # (Auto) 0.20 L (0.30-0.82) K/mm3 Eos # (Auto) 0.08 (0.04-0.54) K/mm3 Baso # (Auto) 0.04 (0.01-0.08) K/mm3 Manual Slide Review ESR (0-15) mm/hr PT 10.9 (9.7-12.0) SECONDS INR 1.02 APTT 25.9 (21.7-31.4) SECONDS D-Dimer, Quantitative (0.19-0.50) mg/L Sodium 141 (136-145) mEq/L Potassium 4.2 (3.5-5.1) mEq/L Chloride 105 (98-107) mEq/L Carbon Dioxide 26 (21-32) mEq/L Anion Gap 14.2 (5-15) BUN 18 (7-18) mg/dL Creatinine 1.2 (0.7-1.3) mg/dL Est Cr Clr Drug Dosing 89.43 mL/min Estimated GFR (MDRD) > 60 (>60) mL/min BUN/Creatinine Ratio 15.0 (14-18) Glucose 129 H (74-106) mg/dL POC Glucose (70-105) mg/dL Lactic Acid (0.4-2.0) mmol/L Calcium 8.8 (8.5-10.1) mg/dL Magnesium (1.8-2.4) mg/dl Total Bilirubin 0.3 (0.2-1.0) mg/dL AST 21 (15-37) U/L ALT 46 (16-63) U/L Alkaline Phosphatase 75 (46-116) U/L Creatine Kinase (39-308) U/L CK-MB (CK-2) 1.2 (0-3.6) ng/ml Troponin I < 0.017 (0.00-0.056) ng/mL C-Reactive Protein (<1.0) mg/dL Total Protein 7.9 (6.4-8.2) g/dl Albumin 4.1 (3.4-5.0) g/dl Globulin 3.8 gm/dL Albumin/Globulin Ratio 1.1 (1-2) Triglycerides (<150) mg/dL Cholesterol (<200) mg/dL LDL Cholesterol Direct (<100) mg/dL HDL Cholesterol (40-59) mg/dL Free T4 (0.76-1.46) ng/dL TSH 3rd Generation (0.358-3.74) uIU/mL Urine Color (Yellow) Urine Appearance (Clear) Urine pH (5.0-8.0) Ur Specific [place] (1.005-1.030) Urine Protein (Negative) Urine Glucose (UA) (Negative) Urine Ketones (Negative) Urine Occult Blood (Negative) Urine Nitrite (Negative) Urine Bilirubin (Negative) Urine Urobilinogen (0.2-1.0) Ur Leukocyte Esterase (Negative) Urine RBC (0-5) /hpf Urine WBC (0-5) /hpf Ur Squamous Epith Cells (0-5) /hpf Urine Bacteria (FEW) /hpf Urine Mucus (FEW) /hpf SARS-CoV-2 RNA (SHERRELL) (NEGATIVE) 05/28/20 05/28/20 05/28/20 Range/Units 12:38 12:38 12:38 WBC (4.23-9.07) K/mm3 RBC (4.63-6.08) M/mm3 Hgb (13.7-17.5) gm/dl Hct (40.1-51.0) % MCV (79.0-92.2) fl MCH (25.7-32.2) pg MCHC (32.2-35.5) g/dl RDW Std Deviation (35.1-43.9) fL Plt Count (163-337) K/mm3 MPV (9.4-12.3) fl Neut % (Auto) (34.0-67.9) % Lymph % (Auto) (21.8-53.1) % [place] % (Auto) (5.3-12.2) % Eos % (Auto) (0.8-7.0) Baso % (Auto) (0.1-1.2) % Neut # (Auto) (1.78-5.38) K/mm3 Lymph # (Auto) (1.32-3.57) K/mm3 [place] # (Auto) (0.30-0.82) K/mm3 Eos # (Auto) (0.04-0.54) K/mm3 Baso # (Auto) (0.01-0.08) K/mm3 Manual Slide Review ESR 4 (0-15) mm/hr PT (9.7-12.0) SECONDS INR APTT (21.7-31.4) SECONDS D-Dimer, Quantitative 0.36 (0.19-0.50) mg/L Sodium (136-145) mEq/L Potassium (3.5-5.1) mEq/L Chloride (98-107) mEq/L Carbon Dioxide (21-32) mEq/L Anion Gap (5-15) BUN (7-18) mg/dL Creatinine (0.7-1.3) mg/dL Est Cr Clr Drug Dosing mL/min Estimated GFR (MDRD) (>60) mL/min BUN/Creatinine Ratio (14-18) Glucose (74-106) mg/dL POC Glucose (70-105) mg/dL Lactic Acid (0.4-2.0) mmol/L Calcium (8.5-10.1) mg/dL Magnesium 2.0 (1.8-2.4) mg/dl Total Bilirubin (0.2-1.0) mg/dL AST (15-37) U/L ALT (16-63) U/L Alkaline Phosphatase (46-116) U/L Creatine Kinase (39-308) U/L CK-MB (CK-2) (0-3.6) ng/ml Troponin I (0.00-0.056) ng/mL C-Reactive Protein (<1.0) mg/dL Total Protein (6.4-8.2) g/dl Albumin (3.4-5.0) g/dl Globulin gm/dL Albumin/Globulin Ratio (1-2) Triglycerides (<150) mg/dL Cholesterol (<200) mg/dL LDL Cholesterol Direct (<100) mg/dL HDL Cholesterol (40-59) mg/dL Free T4 (0.76-1.46) ng/dL TSH 3rd Generation (0.358-3.74) uIU/mL Urine Color (Yellow) Urine Appearance (Clear) Urine pH (5.0-8.0) Ur Specific [place] (1.005-1.030) Urine Protein (Negative) Urine Glucose (UA) (Negative) Urine Ketones (Negative) Urine Occult Blood (Negative) Urine Nitrite (Negative) Urine Bilirubin (Negative) Urine Urobilinogen (0.2-1.0) Ur Leukocyte Esterase (Negative) Urine RBC (0-5) /hpf Urine WBC (0-5) /hpf Ur Squamous Epith Cells (0-5) /hpf Urine Bacteria (FEW) /hpf Urine Mucus (FEW) /hpf SARS-CoV-2 RNA (SHERRELL) (NEGATIVE) 05/28/20 05/28/20 05/28/20 Range/Units 13:22 17:44 17:44 WBC (4.23-9.07) K/mm3 RBC (4.63-6.08) M/mm3 Hgb (13.7-17.5) gm/dl Hct (40.1-51.0) % MCV (79.0-92.2) fl MCH (25.7-32.2) pg MCHC (32.2-35.5) g/dl RDW Std Deviation (35.1-43.9) fL Plt Count (163-337) K/mm3 MPV (9.4-12.3) fl Neut % (Auto) (34.0-67.9) % Lymph % (Auto) (21.8-53.1) % [place] % (Auto) (5.3-12.2) % Eos % (Auto) (0.8-7.0) Baso % (Auto) (0.1-1.2) % Neut # (Auto) (1.78-5.38) K/mm3 Lymph # (Auto) (1.32-3.57) K/mm3 [place] # (Auto) (0.30-0.82) K/mm3 Eos # (Auto) (0.04-0.54) K/mm3 Baso # (Auto) (0.01-0.08) K/mm3 Manual Slide Review ESR (0-15) mm/hr PT (9.7-12.0) SECONDS INR APTT (21.7-31.4) SECONDS D-Dimer, Quantitative (0.19-0.50) mg/L Sodium (136-145) mEq/L Potassium (3.5-5.1) mEq/L Chloride (98-107) mEq/L Carbon Dioxide (21-32) mEq/L Anion Gap (5-15) BUN (7-18) mg/dL Creatinine (0.7-1.3) mg/dL Est Cr Clr Drug Dosing mL/min Estimated GFR (MDRD) (>60) mL/min BUN/Creatinine Ratio (14-18) Glucose (74-106) mg/dL POC Glucose (70-105) mg/dL Lactic Acid 2.5 H* (0.4-2.0) mmol/L Calcium (8.5-10.1) mg/dL Magnesium (1.8-2.4) mg/dl Total Bilirubin (0.2-1.0) mg/dL AST (15-37) U/L ALT (16-63) U/L Alkaline Phosphatase (46-116) U/L Creatine Kinase (39-308) U/L CK-MB (CK-2) (0-3.6) ng/ml Troponin I (0.00-0.056) ng/mL C-Reactive Protein < 0.2 (<1.0) mg/dL Total Protein (6.4-8.2) g/dl Albumin (3.4-5.0) g/dl Globulin gm/dL Albumin/Globulin Ratio (1-2) Triglycerides (<150) mg/dL Cholesterol (<200) mg/dL LDL Cholesterol Direct (<100) mg/dL HDL Cholesterol (40-59) mg/dL Free T4 (0.76-1.46) ng/dL TSH 3rd Generation (0.358-3.74) uIU/mL Urine Color (Yellow) Urine Appearance (Clear) Urine pH (5.0-8.0) Ur Specific [place] (1.005-1.030) Urine Protein (Negative) Urine Glucose (UA) (Negative) Urine Ketones (Negative) Urine Occult Blood (Negative) Urine Nitrite (Negative) Urine Bilirubin (Negative) Urine Urobilinogen (0.2-1.0) Ur Leukocyte Esterase (Negative) Urine RBC (0-5) /hpf Urine WBC (0-5) /hpf Ur Squamous Epith Cells (0-5) /hpf Urine Bacteria (FEW) /hpf Urine Mucus (FEW) /hpf SARS-CoV-2 RNA (SHERRELL) Positive H (NEGATIVE) 05/28/20 05/28/20 05/28/20 Range/Units 17:44 20:41 20:41 WBC (4.23-9.07) K/mm3 RBC (4.63-6.08) M/mm3 Hgb (13.7-17.5) gm/dl Hct (40.1-51.0) % MCV (79.0-92.2) fl MCH (25.7-32.2) pg MCHC (32.2-35.5) g/dl RDW Std Deviation (35.1-43.9) fL Plt Count (163-337) K/mm3 MPV (9.4-12.3) fl Neut % (Auto) (34.0-67.9) % Lymph % (Auto) (21.8-53.1) % [place] % (Auto) (5.3-12.2) % Eos % (Auto) (0.8-7.0) Baso % (Auto) (0.1-1.2) % Neut # (Auto) (1.78-5.38) K/mm3 Lymph # (Auto) (1.32-3.57) K/mm3 [place] # (Auto) (0.30-0.82) K/mm3 Eos # (Auto) (0.04-0.54) K/mm3 Baso # (Auto) (0.01-0.08) K/mm3 Manual Slide Review ESR (0-15) mm/hr PT (9.7-12.0) SECONDS INR APTT (21.7-31.4) SECONDS D-Dimer, Quantitative (0.19-0.50) mg/L Sodium (136-145) mEq/L Potassium (3.5-5.1) mEq/L Chloride (98-107) mEq/L Carbon Dioxide (21-32) mEq/L Anion Gap (5-15) BUN (7-18) mg/dL Creatinine (0.7-1.3) mg/dL Est Cr Clr Drug Dosing mL/min Estimated GFR (MDRD) (>60) mL/min BUN/Creatinine Ratio (14-18) Glucose (74-106) mg/dL POC Glucose (70-105) mg/dL Lactic Acid 2.7 H* (0.4-2.0) mmol/L Calcium (8.5-10.1) mg/dL Magnesium (1.8-2.4) mg/dl Total Bilirubin 0.3 (0.2-1.0) mg/dL AST 19 (15-37) U/L ALT 43 (16-63) U/L Alkaline Phosphatase 65 (46-116) U/L Creatine Kinase (39-308) U/L CK-MB (CK-2) (0-3.6) ng/ml Troponin I < 0.017 (0.00-0.056) ng/mL C-Reactive Protein (<1.0) mg/dL Total Protein 7.7 (6.4-8.2) g/dl Albumin 4.0 (3.4-5.0) g/dl Globulin 3.7 gm/dL Albumin/Globulin Ratio 1.1 (1-2) Triglycerides (<150) mg/dL Cholesterol (<200) mg/dL LDL Cholesterol Direct (<100) mg/dL HDL Cholesterol (40-59) mg/dL Free T4 (0.76-1.46) ng/dL TSH 3rd Generation (0.358-3.74) uIU/mL Urine Color (Yellow) Urine Appearance (Clear) Urine pH (5.0-8.0) Ur Specific [place] (1.005-1.030) Urine Protein (Negative) Urine Glucose (UA) (Negative) Urine Ketones (Negative) Urine Occult Blood (Negative) Urine Nitrite (Negative) Urine Bilirubin (Negative) Urine Urobilinogen (0.2-1.0) Ur Leukocyte Esterase (Negative) Urine RBC (0-5) /hpf Urine WBC (0-5) /hpf Ur Squamous Epith Cells (0-5) /hpf Urine Bacteria (FEW) /hpf Urine Mucus (FEW) /hpf SARS-CoV-2 RNA (SHERRELL) (NEGATIVE) 05/28/20 05/28/20 05/28/20 Range/Units 20:41 22:36 23:44 WBC (4.23-9.07) K/mm3 RBC (4.63-6.08) M/mm3 Hgb (13.7-17.5) gm/dl Hct (40.1-51.0) % MCV (79.0-92.2) fl MCH (25.7-32.2) pg MCHC (32.2-35.5) g/dl RDW Std Deviation (35.1-43.9) fL Plt Count (163-337) K/mm3 MPV (9.4-12.3) fl Neut % (Auto) (34.0-67.9) % Lymph % (Auto) (21.8-53.1) % [place] % (Auto) (5.3-12.2) % Eos % (Auto) (0.8-7.0) Baso % (Auto) (0.1-1.2) % Neut # (Auto) (1.78-5.38) K/mm3 Lymph # (Auto) (1.32-3.57) K/mm3 [place] # (Auto) (0.30-0.82) K/mm3 Eos # (Auto) (0.04-0.54) K/mm3 Baso # (Auto) (0.01-0.08) K/mm3 Manual Slide Review ESR (0-15) mm/hr PT (9.7-12.0) SECONDS INR APTT (21.7-31.4) SECONDS D-Dimer, Quantitative (0.19-0.50) mg/L Sodium (136-145) mEq/L Potassium (3.5-5.1) mEq/L Chloride (98-107) mEq/L Carbon Dioxide (21-32) mEq/L Anion Gap (5-15) BUN (7-18) mg/dL Creatinine (0.7-1.3) mg/dL Est Cr Clr Drug Dosing mL/min Estimated GFR (MDRD) (>60) mL/min BUN/Creatinine Ratio (14-18) Glucose (74-106) mg/dL POC Glucose (70-105) mg/dL Lactic Acid (0.4-2.0) mmol/L Calcium (8.5-10.1) mg/dL Magnesium (1.8-2.4) mg/dl Total Bilirubin (0.2-1.0) mg/dL AST (15-37) U/L ALT (16-63) U/L Alkaline Phosphatase (46-116) U/L Creatine Kinase 173 (39-308) U/L CK-MB (CK-2) (0-3.6) ng/ml Troponin I < 0.017 (0.00-0.056) ng/mL C-Reactive Protein (<1.0) mg/dL Total Protein (6.4-8.2) g/dl Albumin (3.4-5.0) g/dl Globulin gm/dL Albumin/Globulin Ratio (1-2) Triglycerides (<150) mg/dL Cholesterol (<200) mg/dL LDL Cholesterol Direct (<100) mg/dL HDL Cholesterol (40-59) mg/dL Free T4 (0.76-1.46) ng/dL TSH 3rd Generation (0.358-3.74) uIU/mL Urine Color Yellow (Yellow) Urine Appearance Clear (Clear) Urine pH 5.5 (5.0-8.0) Ur Specific [place] 1.020 (1.005-1.030) Urine Protein Negative (Negative) Urine Glucose (UA) Negative (Negative) Urine Ketones Negative (Negative) Urine Occult Blood Negative (Negative) Urine Nitrite Negative (Negative) Urine Bilirubin Negative (Negative) Urine Urobilinogen 0.2 (0.2-1.0) Ur Leukocyte Esterase Negative (Negative) Urine RBC Not seen (0-5) /hpf Urine WBC 0-5 (0-5) /hpf Ur Squamous Epith Cells Not seen (0-5) /hpf Urine Bacteria Rare (FEW) /hpf Urine Mucus Rare (FEW) /hpf SARS-CoV-2 RNA (SHERRELL) (NEGATIVE) 05/28/20 05/29/20 05/29/20 Range/Units 23:44 02:34 05:58 WBC 17.10 H (4.23-9.07) K/mm3 RBC 4.17 L (4.63-6.08) M/mm3 Hgb 13.1 L D (13.7-17.5) gm/dl Hct 39.5 L (40.1-51.0) % MCV 94.7 H (79.0-92.2) fl MCH 31.4 (25.7-32.2) pg MCHC 33.2 (32.2-35.5) g/dl RDW Std Deviation 43.0 (35.1-43.9) fL Plt Count 275 (163-337) K/mm3 MPV 10.4 (9.4-12.3) fl Neut % (Auto) 83.6 H (34.0-67.9) % Lymph % (Auto) 8.7 L (21.8-53.1) % [place] % (Auto) 7.3 (5.3-12.2) % Eos % (Auto) 0 L (0.8-7.0) Baso % (Auto) 0.1 (0.1-1.2) % Neut # (Auto) 14.32 H (1.78-5.38) K/mm3 Lymph # (Auto) 1.48 (1.32-3.57) K/mm3 [place] # (Auto) 1.24 H (0.30-0.82) K/mm3 Eos # (Auto) 0.00 L (0.04-0.54) K/mm3 Baso # (Auto) 0.01 (0.01-0.08) K/mm3 Manual Slide Review Abnormal smear ESR (0-15) mm/hr PT (9.7-12.0) SECONDS INR APTT (21.7-31.4) SECONDS D-Dimer, Quantitative (0.19-0.50) mg/L Sodium (136-145) mEq/L Potassium (3.5-5.1) mEq/L Chloride (98-107) mEq/L Carbon Dioxide (21-32) mEq/L Anion Gap (5-15) BUN (7-18) mg/dL Creatinine (0.7-1.3) mg/dL Est Cr Clr Drug Dosing mL/min Estimated GFR (MDRD) (>60) mL/min BUN/Creatinine Ratio (14-18) Glucose (74-106) mg/dL POC Glucose (70-105) mg/dL Lactic Acid 3.4 H* 3.2 H* (0.4-2.0) mmol/L Calcium (8.5-10.1) mg/dL Magnesium (1.8-2.4) mg/dl Total Bilirubin (0.2-1.0) mg/dL AST (15-37) U/L ALT (16-63) U/L Alkaline Phosphatase (46-116) U/L Creatine Kinase (39-308) U/L CK-MB (CK-2) (0-3.6) ng/ml Troponin I (0.00-0.056) ng/mL C-Reactive Protein (<1.0) mg/dL Total Protein (6.4-8.2) g/dl Albumin (3.4-5.0) g/dl Globulin gm/dL Albumin/Globulin Ratio (1-2) Triglycerides (<150) mg/dL Cholesterol (<200) mg/dL LDL Cholesterol Direct (<100) mg/dL HDL Cholesterol (40-59) mg/dL Free T4 (0.76-1.46) ng/dL TSH 3rd Generation (0.358-3.74) uIU/mL Urine Color (Yellow) Urine Appearance (Clear) Urine pH (5.0-8.0) Ur Specific [place] (1.005-1.030) Urine Protein (Negative) Urine Glucose (UA) (Negative) Urine Ketones (Negative) Urine Occult Blood (Negative) Urine Nitrite (Negative) Urine Bilirubin (Negative) Urine Urobilinogen (0.2-1.0) Ur Leukocyte Esterase (Negative) Urine RBC (0-5) /hpf Urine WBC (0-5) /hpf Ur Squamous Epith Cells (0-5) /hpf Urine Bacteria (FEW) /hpf Urine Mucus (FEW) /hpf SARS-CoV-2 RNA (SHERRELL) (NEGATIVE) 05/29/20 05/29/20 05/29/20 Range/Units 05:58 05:58 05:58 WBC (4.23-9.07) K/mm3 RBC (4.63-6.08) M/mm3 Hgb (13.7-17.5) gm/dl Hct (40.1-51.0) % MCV (79.0-92.2) fl MCH (25.7-32.2) pg MCHC (32.2-35.5) g/dl RDW Std Deviation (35.1-43.9) fL Plt Count (163-337) K/mm3 MPV (9.4-12.3) fl Neut % (Auto) (34.0-67.9) % Lymph % (Auto) (21.8-53.1) % [place] % (Auto) (5.3-12.2) % Eos % (Auto) (0.8-7.0) Baso % (Auto) (0.1-1.2) % Neut # (Auto) (1.78-5.38) K/mm3 Lymph # (Auto) (1.32-3.57) K/mm3 [place] # (Auto) (0.30-0.82) K/mm3 Eos # (Auto) (0.04-0.54) K/mm3 Baso # (Auto) (0.01-0.08) K/mm3 Manual Slide Review ESR (0-15) mm/hr PT (9.7-12.0) SECONDS INR APTT (21.7-31.4) SECONDS D-Dimer, Quantitative (0.19-0.50) mg/L Sodium (136-145) mEq/L Potassium (3.5-5.1) mEq/L Chloride (98-107) mEq/L Carbon Dioxide (21-32) mEq/L Anion Gap (5-15) BUN (7-18) mg/dL Creatinine (0.7-1.3) mg/dL Est Cr Clr Drug Dosing mL/min Estimated GFR (MDRD) (>60) mL/min BUN/Creatinine Ratio (14-18) Glucose (74-106) mg/dL POC Glucose (70-105) mg/dL Lactic Acid (0.4-2.0) mmol/L Calcium (8.5-10.1) mg/dL Magnesium 2.1 (1.8-2.4) mg/dl Total Bilirubin 0.2 (0.2-1.0) mg/dL AST 14 L (15-37) U/L ALT 34 (16-63) U/L Alkaline Phosphatase 62 (46-116) U/L Creatine Kinase (39-308) U/L CK-MB (CK-2) (0-3.6) ng/ml Troponin I < 0.017 (0.00-0.056) ng/mL C-Reactive Protein 0.2 (<1.0) mg/dL Total Protein 7.2 (6.4-8.2) g/dl Albumin 3.9 (3.4-5.0) g/dl Globulin 3.3 gm/dL Albumin/Globulin Ratio 1.2 (1-2) Triglycerides 144 (<150) mg/dL Cholesterol 226 H (<200) mg/dL LDL Cholesterol Direct 155 H* (<100) mg/dL HDL Cholesterol 48.0 (40-59) mg/dL Free T4 0.74 L (0.76-1.46) ng/dL TSH 3rd Generation 1.197 (0.358-3.74) uIU/mL Urine Color (Yellow) Urine Appearance (Clear) Urine pH (5.0-8.0) Ur Specific [place] (1.005-1.030) Urine Protein (Negative) Urine Glucose (UA) (Negative) Urine Ketones (Negative) Urine Occult Blood (Negative) Urine Nitrite (Negative) Urine Bilirubin (Negative) Urine Urobilinogen (0.2-1.0) Ur Leukocyte Esterase (Negative) Urine RBC (0-5) /hpf Urine WBC (0-5) /hpf Ur Squamous Epith Cells (0-5) /hpf Urine Bacteria (FEW) /hpf Urine Mucus (FEW) /hpf SARS-CoV-2 RNA (SHERRELL) (NEGATIVE) 05/29/20 05/29/20 05/29/20 Range/Units 05:58 06:57 09:10 WBC (4.23-9.07) K/mm3 RBC (4.63-6.08) M/mm3 Hgb (13.7-17.5) gm/dl Hct (40.1-51.0) % MCV (79.0-92.2) fl MCH (25.7-32.2) pg MCHC (32.2-35.5) g/dl RDW Std Deviation (35.1-43.9) fL Plt Count (163-337) K/mm3 MPV (9.4-12.3) fl Neut % (Auto) (34.0-67.9) % Lymph % (Auto) (21.8-53.1) % [place] % (Auto) (5.3-12.2) % Eos % (Auto) (0.8-7.0) Baso % (Auto) (0.1-1.2) % Neut # (Auto) (1.78-5.38) K/mm3 Lymph # (Auto) (1.32-3.57) K/mm3 [place] # (Auto) (0.30-0.82) K/mm3 Eos # (Auto) (0.04-0.54) K/mm3 Baso # (Auto) (0.01-0.08) K/mm3 Manual Slide Review ESR (0-15) mm/hr PT (9.7-12.0) SECONDS INR APTT (21.7-31.4) SECONDS D-Dimer, Quantitative (0.19-0.50) mg/L Sodium (136-145) mEq/L Potassium (3.5-5.1) mEq/L Chloride (98-107) mEq/L Carbon Dioxide (21-32) mEq/L Anion Gap (5-15) BUN (7-18) mg/dL Creatinine (0.7-1.3) mg/dL Est Cr Clr Drug Dosing mL/min Estimated GFR (MDRD) (>60) mL/min BUN/Creatinine Ratio (14-18) Glucose (74-106) mg/dL POC Glucose 118 H (70-105) mg/dL Lactic Acid 2.4 H* 1.9 (0.4-2.0) mmol/L Calcium (8.5-10.1) mg/dL Magnesium (1.8-2.4) mg/dl Total Bilirubin (0.2-1.0) mg/dL AST (15-37) U/L ALT (16-63) U/L Alkaline Phosphatase (46-116) U/L Creatine Kinase (39-308) U/L CK-MB (CK-2) (0-3.6) ng/ml Troponin I (0.00-0.056) ng/mL C-Reactive Protein (<1.0) mg/dL Total Protein (6.4-8.2) g/dl Albumin (3.4-5.0) g/dl Globulin gm/dL Albumin/Globulin Ratio (1-2) Triglycerides (<150) mg/dL Cholesterol (<200) mg/dL LDL Cholesterol Direct (<100) mg/dL HDL Cholesterol (40-59) mg/dL Free T4 (0.76-1.46) ng/dL TSH 3rd Generation (0.358-3.74) uIU/mL Urine Color (Yellow) Urine Appearance (Clear) Urine pH (5.0-8.0) Ur Specific [place] (1.005-1.030) Urine Protein (Negative) Urine Glucose (UA) (Negative) Urine Ketones (Negative) Urine Occult Blood (Negative) Urine Nitrite (Negative) Urine Bilirubin (Negative) Urine Urobilinogen (0.2-1.0) Ur Leukocyte Esterase (Negative) Urine RBC (0-5) /hpf Urine WBC (0-5) /hpf Ur Squamous Epith Cells (0-5) /hpf Urine Bacteria (FEW) /hpf Urine Mucus (FEW) /hpf SARS-CoV-2 RNA (SHERRELL) (NEGATIVE) Result Diagrams: 05/29/20 05:58 05/28/20 12:38 Sepsis Event Note - Evaluation Sepsis Screening Result: No Definite Risk - Focused Exam Vital Signs: Vital Signs Temp Pulse Resp BP BP Pulse Ox 05/29/20 08:52 97.7 F 90 20 122/77 96 05/29/20 06:14 130/84 05/29/20 06:09 97.5 F 99 16 159/96 H 97 05/29/20 03:19 97.9 F 99 13 114/55 L 95 05/28/20 23:15 93 L 05/28/20 23:12 97.9 F 109 H 13 130/73 91 L - Problem List & Annotations (1) Anterior chest wall pain SNOMED Code(s): 120656825 Code(s): R07.89 - OTHER CHEST PAIN Status: Acute Current Visit: No (2) COVID-19 SNOMED Code(s): 906210836 Code(s): U07.1 - COVID-19 Status: Acute Current Visit: Yes - Problem List Review Problem List Initiated/Reviewed/Updated: Yes - My Orders Last 24 Hours: My Active Orders 05/29/20 Lunch Regular Diet [DIET] 05/29/20 17:00 Indomethacin [Indocin] 50 mg PO TIDMEALS 05/30/20 05:11 CMP [COMPREHENSIVE METABOLIC PN,CMP] [CHEM] AM - Plan Plan:: This is a 44 yo white male with past medical hx/o Impaired Hearing, Hx/o Renal Stone, Childhood Meningitis and Obesity who comes in for lingering anterior chest pain that has been going off and on since January of 2020. Assessment: Acute: Early developing sepsis 2/2 Covid-19 Infection -Meets criteria: Tachycardic with HR in the teen, tachypneic with RR in the mid 20s, and LA of 2.5 -Lactic acid improved to 1.9 this morning -Plan DC IV fluids and continue to monitor. Chest pain r/o ACS/PE Costochondritis Sinus tachycardia with HR of 113, now it is down to the 90s and low 100s-likely secondary to pain -Has been going since April, but first documentation of an ER visit for chest pain was in January -No family hx/o premature CAD or hx/o GERD -He was seen by multiple providers since January -Was seen in ED 3 days ago; negative for PE and basic cardiac work up -Sent home with Naproxen and Percocet but w/o improvement of symptom -EKG shows sinus tachy cardia; no ST elevation in all leads to suggest pericarditis -Troponin x 2 negative -Lexiscan this morning was canceled secondary to -GI cocktail and carbonated soda -CT of the chest was negative for any acute findings. Echocardiogram was also normal although it was a technically difficult study. -The repeatedly negative work-up makes it most likely this is a chest wall pain/inflammation. It is most likely something along the lines of costochondritis. Covid-19 Re-infection -He was infected by in Dec -He got over it w/o treatment -Rapid test positive today -D-dimer is wnl; CRP wnl -LDH and Ferritin are pending -analyzer is down -Chest x-ray shows increased lung markings, but CT negative -ProBNP is pending -analyzer is down -Unfortunately no test can be done to screen for Covid-19 variants: [place], [place], and [place] -Plan: Continue remdesivir although I think there is little benefit. Stop dexamethasone with the increase in anxiety and increase in white count. There i s no benefit with negative inflammatory markers, D-dimer, and not on oxygen. Elevated blood pressure without diagnosis of hypertension -Likely secondary to steroids, NSAIDs, anxiety, obesity, and possibly poor technique secondary to his large arms -Treatment not necessary at this time Class II Obese -BMI of 39.4 -Dietary consult for weight management -A1C level Chronic: Impaired Hearing, Hx/o Renal Stone, Childhood Meningitis and Obesity Plan: Switch naproxen to indomethacin. Decrease Lovenox to 40 mg daily especially since his D-dimer is normal. Continue monitoring oxygenation status. Consider discharge tomorrow but patient appears to have some difficulties going back to his place of residence. He lives in group housing with other [employer] workers. medical services coordinator consulted.
[2020-05-29 15:35] LABS: VITAMIN D,25-HYDROXY 8.7 ng/ml (30.0-100.0)
[2020-05-29] MEDS: Indomethacin 25 MG Cap PO SCH (16:39)
[2020-05-29] MEDS: REMDESIVIR 100 MG in Sodium Chloride 0.9% 100 ML IV SCH (20:58)
[2020-05-29] MEDS: LORazepam 1 MG Tab PO PRN (21:31)
[2020-05-30] MEDS: Zolpidem 5 MG Tab PO PRN ×2 (00:58→23:56)
[2020-05-30] MEDS: HYDROmorphone 1 MG/ML Syringe IVPUSH PRN ×4 (00:59→09:21)
[2020-05-30] MEDS: Indomethacin 25 MG Cap PO SCH ×3 (06:53→17:05)
[2020-05-30] MEDS: Zinc Sulfate 220 MG Cap PO SCH (09:20)
[2020-05-30] MEDS: Enoxaparin 40 MG/0.4 ML Syringe SUBCUT SCH (09:20)
[2020-05-30] MEDS: Gabapentin 300 MG Cap PO SCH ×2 (09:20→20:46)
[2020-05-30] MEDS: oxyCODONE 5 MG Tab PO PRN ×4 (10:20→23:56)
--- NOTE | 2020-05-30 12:16 | PCM.PN ---
- General Info Date of Service: 05/30/20 Admission Dx/Problem (Free Text): Admission Diagnosis/Problem Admission Diagnosis/Problem Chest pain Subjective Update: Patient complains of increased shortness of breath. He also complains of continued anterior chest wall pain although he does state is not getting worse. Patient's oxygen saturations are in the mid to upper 90s which is better than the first day of admission. He continues to eat 100% of his diet. Functional Status: Reports: Pain Controlled - Review of Systems General: Reports: No Symptoms HEENT: Reports: No Symptoms Pulmonary: Reports: No Symptoms Cardiovascular: Reports: No Symptoms Gastrointestinal: Reports: No Symptoms Musculoskeletal: Reports: Other (Anterior chest wall pain) Skin: Reports: No Symptoms Psychiatric: Reports: No Symptoms - Patient Data Vitals - Most Recent: Last Vital Signs Temp 97.9 F 05/30/20 11:46 Pulse 81 05/30/20 11:46 Resp 17 05/30/20 11:46 BP 152/88 H 05/30/20 11:46 Pulse Ox 95 05/30/20 11:46 Weight - Most Recent: 320 lb 3.2 oz I&O - Last 24 Hours: Intake & Output 05/29/20 05/30/20 05/30/20 22:59 06:59 14:59 Intake Total 2319 900 1060 Output Total 1250 1100 Balance 1069 -200 1060 Lab Results Last 24 Hours: Laboratory Results - last 24 hr 05/28/20 05/28/20 05/28/20 Range/Units 12:38 17:44 17:44 WBC (4.23-9.07) K/mm3 RBC (4.63-6.08) M/mm3 Hgb (13.7-17.5) gm/dl Hct (40.1-51.0) % MCV (79.0-92.2) fl MCH (25.7-32.2) pg MCHC (32.2-35.5) g/dl RDW Std Deviation (35.1-43.9) fL Plt Count (163-337) K/mm3 MPV (9.4-12.3) fl Neut % (Auto) (34.0-67.9) % Lymph % (Auto) (21.8-53.1) % Dixon % (Auto) (5.3-12.2) % Eos % (Auto) (0.8-7.0) Baso % (Auto) (0.1-1.2) % Neut # (Auto) (1.78-5.38) K/mm3 Lymph # (Auto) (1.32-3.57) K/mm3 Dixon # (Auto) (0.30-0.82) K/mm3 Eos # (Auto) (0.04-0.54) K/mm3 Baso # (Auto) (0.01-0.08) K/mm3 Manual Slide Review Sodium (136-145) mEq/L Potassium (3.5-5.1) mEq/L Chloride (98-107) mEq/L Carbon Dioxide (21-32) mEq/L Anion Gap (5-15) BUN (7-18) mg/dL Creatinine (0.7-1.3) mg/dL Est Cr Clr Drug Dosing mL/min Estimated GFR (MDRD) (>60) mL/min BUN/Creatinine Ratio (14-18) Glucose (74-106) mg/dL Calcium (8.5-10.1) mg/dL Magnesium (1.8-2.4) mg/dl Ferritin 139 (26-388) ng/ml Total Bilirubin (0.2-1.0) mg/dL Direct Bilirubin (0.0-0.2) mg/dl Indirect Bilirubin AST (15-37) U/L ALT (16-63) U/L Alkaline Phosphatase (46-116) U/L Lactate Dehydrogenase 258 H (85-227) U/L C-Reactive Protein (<1.0) mg/dL NT-Pro-B Natriuret Pep (0-125) pg/mL Total Protein (6.4-8.2) g/dl Albumin (3.4-5.0) g/dl Globulin gm/dL Albumin/Globulin Ratio (1-2) Vitamin D 25-Hydroxy (30.0-100.0) ng/ml Procalcitonin <0.05 ng/mL 05/28/20 05/28/20 05/29/20 Range/Units 17:44 20:41 05:58 WBC (4.23-9.07) K/mm3 RBC (4.63-6.08) M/mm3 Hgb (13.7-17.5) gm/dl Hct (40.1-51.0) % MCV (79.0-92.2) fl MCH (25.7-32.2) pg MCHC (32.2-35.5) g/dl RDW Std Deviation (35.1-43.9) fL Plt Count (163-337) K/mm3 MPV (9.4-12.3) fl Neut % (Auto) (34.0-67.9) % Lymph % (Auto) (21.8-53.1) % Dixon % (Auto) (5.3-12.2) % Eos % (Auto) (0.8-7.0) Baso % (Auto) (0.1-1.2) % Neut # (Auto) (1.78-5.38) K/mm3 Lymph # (Auto) (1.32-3.57) K/mm3 Dixon # (Auto) (0.30-0.82) K/mm3 Eos # (Auto) (0.04-0.54) K/mm3 Baso # (Auto) (0.01-0.08) K/mm3 Manual Slide Review Sodium (136-145) mEq/L Potassium (3.5-5.1) mEq/L Chloride (98-107) mEq/L Carbon Dioxide (21-32) mEq/L Anion Gap (5-15) BUN (7-18) mg/dL Creatinine (0.7-1.3) mg/dL Est Cr Clr Drug Dosing mL/min Estimated GFR (MDRD) (>60) mL/min BUN/Creatinine Ratio (14-18) Glucose (74-106) mg/dL Calcium (8.5-10.1) mg/dL Magnesium (1.8-2.4) mg/dl Ferritin (26-388) ng/ml Total Bilirubin (0.2-1.0) mg/dL Direct Bilirubin 0.10 (0.0-0.2) mg/dl Indirect Bilirubin 0.20 AST (15-37) U/L ALT (16-63) U/L Alkaline Phosphatase (46-116) U/L Lactate Dehydrogenase (85-227) U/L C-Reactive Protein (<1.0) mg/dL NT-Pro-B Natriuret Pep 21 (0-125) pg/mL Total Protein (6.4-8.2) g/dl Albumin (3.4-5.0) g/dl Globulin gm/dL Albumin/Globulin Ratio (1-2) Vitamin D 25-Hydroxy 8.7 L (30.0-100.0) ng/ml Procalcitonin ng/mL 05/29/20 05/30/20 05/30/20 Range/Units 05:58 05:24 05:24 WBC 17.28 H (4.23-9.07) K/mm3 RBC 4.05 L (4.63-6.08) M/mm3 Hgb 12.6 L (13.7-17.5) gm/dl Hct 38.7 L (40.1-51.0) % MCV 95.6 H (79.0-92.2) fl MCH 31.1 (25.7-32.2) pg MCHC 32.6 (32.2-35.5) g/dl RDW Std Deviation 42.2 (35.1-43.9) fL Plt Count 268 (163-337) K/mm3 MPV 10.8 (9.4-12.3) fl Neut % (Auto) 79.0 H (34.0-67.9) % Lymph % (Auto) 12.8 L (21.8-53.1) % Dixon % (Auto) 7.3 (5.3-12.2) % Eos % (Auto) 0.1 L (0.8-7.0) Baso % (Auto) 0.1 (0.1-1.2) % Neut # (Auto) 13.66 H (1.78-5.38) K/mm3 Lymph # (Auto) 2.21 (1.32-3.57) K/mm3 Dixon # (Auto) 1.27 H (0.30-0.82) K/mm3 Eos # (Auto) 0.01 L (0.04-0.54) K/mm3 Baso # (Auto) 0.01 (0.01-0.08) K/mm3 Manual Slide Review Normal smear Sodium 146 H (136-145) mEq/L Potassium 3.8 (3.5-5.1) mEq/L Chloride 107 (98-107) mEq/L Carbon Dioxide 30 (21-32) mEq/L Anion Gap 12.8 (5-15) BUN 23 H (7-18) mg/dL Creatinine 0.9 (0.7-1.3) mg/dL Est Cr Clr Drug Dosing 119.24 mL/min Estimated GFR (MDRD) > 60 (>60) mL/min BUN/Creatinine Ratio 25.6 H (14-18) Glucose 133 H (74-106) mg/dL Calcium 8.5 (8.5-10.1) mg/dL Magnesium 2.0 (1.8-2.4) mg/dl Ferritin (26-388) ng/ml Total Bilirubin 0.2 (0.2-1.0) mg/dL Direct Bilirubin 0.10 (0.0-0.2) mg/dl Indirect Bilirubin 0.10 AST 16 (15-37) U/L ALT 36 (16-63) U/L Alkaline Phosphatase 55 (46-116) U/L Lactate Dehydrogenase (85-227) U/L C-Reactive Protein <0.2 (<1.0) mg/dL NT-Pro-B Natriuret Pep (0-125) pg/mL Total Protein 6.9 (6.4-8.2) g/dl Albumin 3.7 (3.4-5.0) g/dl Globulin 3.2 gm/dL Albumin/Globulin Ratio 1.2 (1-2) Vitamin D 25-Hydroxy (30.0-100.0) ng/ml Procalcitonin ng/mL 05/30/20 Range/Units 05:24 WBC (4.23-9.07) K/mm3 RBC (4.63-6.08) M/mm3 Hgb (13.7-17.5) gm/dl Hct (40.1-51.0) % MCV (79.0-92.2) fl MCH (25.7-32.2) pg MCHC (32.2-35.5) g/dl RDW Std Deviation (35.1-43.9) fL Plt Count (163-337) K/mm3 MPV (9.4-12.3) fl Neut % (Auto) (34.0-67.9) % Lymph % (Auto) (21.8-53.1) % Dixon % (Auto) (5.3-12.2) % Eos % (Auto) (0.8-7.0) Baso % (Auto) (0.1-1.2) % Neut # (Auto) (1.78-5.38) K/mm3 Lymph # (Auto) (1.32-3.57) K/mm3 Dixon # (Auto) (0.30-0.82) K/mm3 Eos # (Auto) (0.04-0.54) K/mm3 Baso # (Auto) (0.01-0.08) K/mm3 Manual Slide Review Sodium (136-145) mEq/L Potassium (3.5-5.1) mEq/L Chloride (98-107) mEq/L Carbon Dioxide (21-32) mEq/L Anion Gap (5-15) BUN (7-18) mg/dL Creatinine (0.7-1.3) mg/dL Est Cr Clr Drug Dosing mL/min Estimated GFR (MDRD) (>60) mL/min BUN/Creatinine Ratio (14-18) Glucose (74-106) mg/dL Calcium (8.5-10.1) mg/dL Magnesium (1.8-2.4) mg/dl Ferritin (26-388) ng/ml Total Bilirubin 0.2 (0.2-1.0) mg/dL Direct Bilirubin < 0.05 (0.0-0.2) mg/dl Indirect Bilirubin TNP AST 17 (15-37) U/L ALT 37 (16-63) U/L Alkaline Phosphatase 54 (46-116) U/L Lactate Dehydrogenase (85-227) U/L C-Reactive Protein (<1.0) mg/dL NT-Pro-B Natriuret Pep (0-125) pg/mL Total Protein 7.0 (6.4-8.2) g/dl Albumin 3.7 (3.4-5.0) g/dl Globulin 3.3 gm/dL Albumin/Globulin Ratio 1.1 (1-2) Vitamin D 25-Hydroxy (30.0-100.0) ng/ml Procalcitonin ng/mL Ad[facility] Results Last 24 Hours: Microbiology 05/28/20 19:00 Aerobic Blood Culture - Preliminary Blood - Venous NO GROWTH AFTER 1 DAY Anaerobic Blood Culture - Preliminary NO GROWTH AFTER 1 DAY 05/28/20 18:50 Aerobic Blood Culture - Preliminary Blood - Venous - Lab Draw NO GROWTH AFTER 1 DAY Anaerobic Blood Culture - Preliminary NO GROWTH AFTER 1 DAY Med Orders - Current: Current Medications Acetaminophen (Tylenol) 650 mg RECTAL Q4H PRN PRN Reason: Pain (mild 1-3) Albuterol/Ipratropium (Duoneb 3.0-0.5 Mg/3 Ml) 3 ml NEB Q4H PRN PRN Reason: Shortness Of Breath/wheezing Bisacodyl (Dulcolax) 5 mg PO DAILY PRN PRN Reason: Constipation Enoxaparin Sodium (Lovenox) 40 mg SUBCUT DAILY [facility] Last Admin: 05/30/20 09:20 Dose: 40 mg Documented by: Gabapentin (Neurontin) 300 mg PO BID [facility] Last Admin: 05/30/20 09:20 Dose: 300 mg Documented by: Guaifenesin/Phenylephrine HCl (Robitussin Dm) 10 ml PO Q4H PRN PRN Reason: Cough Hydralazine HCl (Apresoline) 20 mg IVPUSH Q4H PRN PRN Reason: Hypertension Hydromorphone HCl (Dilaudid) 2 mg IVPUSH Q2H PRN PRN Reason: Pain (severe 7-10) Last Admin: 05/30/20 09:21 Dose: 2 mg Documented by: Promethazine HCl 12.5 mg/ (Sodium Chloride) 50.5 mls @ 100 mls/hr IV Q6H PRN PRN Reason: Nausea/Vomiting Remdesivir 100 mg/ Sodium (Chloride) 100 mls @ 100 mls/hr IV Q24H [facility] Stop: 06/01/20 20:59 Last Admin: 05/29/20 20:58 Dose: 100 mls/hr Documented by: Indomethacin (Indocin) 50 mg PO TIDMEALS [facility] Last Admin: 05/30/20 11:37 Dose: 50 mg Documented by: Lorazepam (Ativan) 1 mg PO Q6H PRN PRN Reason: Anxiety Last Admin: 05/29/20 21:31 Dose: 1 mg Documented by: Ondansetron HCl (Zofran) 4 mg IV Q6H PRN PRN Reason: Nausea/Vomiting Oxycodone HCl (Oxycodone) 5 mg PO Q6HR PRN PRN Reason: Pain Last Admin: 05/30/20 10:20 Dose: 5 mg Documented by: Polyethylene Glycol (Miralax) 17 gm PO DAILY PRN PRN Reason: Constipation Senna/Docusate Sodium (Senna Plus) 1 tab PO BID PRN PRN Reason: Constipation Last Admin: 05/28/20 18:56 Dose: 1 tab Documented by: Senna/Docusate Sodium (Senna Plus) 1 tab PO DAILY [facility] Last Admin: 05/30/20 09:20 Dose: 1 tab Documented by: Sodium Chloride (Saline Flush) 10 ml FLUSH ASDIRECTED [facility] Last Admin: 05/28/20 18:22 Dose: 10 ml Documented by: Tizanidine HCl (Zanaflex) 4 mg PO TID PRN PRN Reason: Spasms Last Admin: 05/28/20 22:16 Dose: 4 mg Documented by: Zinc Sulfate (Zincate) 220 mg PO DAILY [facility] Last Admin: 05/30/20 09:20 Dose: 220 mg Documented by: Zolpidem Tartrate (Ambien) 5 mg PO BEDTIME PRN PRN Reason: Sleep Last Admin: 05/30/20 00:58 Dose: 5 mg Documented by: Discontinued Medications Aspirin (Aspirin) 324 mg PO ONETIME ONE Stop: 05/28/20 13:07 Last Admin: 05/28/20 13:13 Dose: 324 mg Documented by: Al Hydroxide/Mg Hydroxide 30 (ml/ Lidocaine HCl 15 ml) 0 ml PO ONETIME ONE Stop: 05/28/20 18:27 Last Admin: 05/28/20 18:50 Dose: 45 ml Documented by: Dexamethasone (Decadron) 6 mg IVPUSH DAILY [facility] Stop: 06/07/20 09:01 Dexamethasone (Dexamethasone) 6 mg PO DAILY [facility] Last Admin: 05/29/20 08:41 Dose: 6 mg Documented by: Enoxaparin Sodium (Lovenox) 40 mg SUBCUT Q12H [facility] Last Admin: 05/29/20 08:32 Dose: 40 mg Documented by: Fentanyl (Sublimaze) 100 mcg IVPUSH ONETIME ONE Stop: 05/28/20 12:05 Last Admin: 05/28/20 12:23 Dose: 100 mcg Documented by: Furosemide (Lasix) 40 mg IVPUSH NOW ONE Stop: 05/28/20 13:08 Last Admin: 05/28/20 13:13 Dose: 40 mg Documented by: Furosemide (Lasix) 20 mg IVPUSH ONETIME ONE Stop: 05/29/20 05:01 Last Admin: 05/29/20 05:39 Dose: 20 mg Documented by: Gabapentin (Neurontin) 600 mg PO ONETIME ONE Stop: 05/28/20 13:36 Last Admin: 05/28/20 13:56 Dose: 600 mg Documented by: Hydromorphone HCl (Dilaudid) 1 mg IVPUSH ONETIME ONE Stop: 05/28/20 10:06 Last Admin: 05/28/20 10:17 Dose: 1 mg Documented by: Hydromorphone HCl (Dilaudid) 1 mg IVPUSH ONETIME ONE Stop: 05/28/20 10:45 Last Admin: 05/28/20 10:55 Dose: 1 mg Documented by: Hydromorphone HCl (Dilaudid) 1 mg IVPUSH ONETIME ONE Stop: 05/28/20 12:57 Last Admin: 05/28/20 13:03 Dose: 1 mg Documented by: Hydromorphone HCl (Dilaudid) 1.5 mg IVPUSH ONETIME ONE Stop: 05/28/20 14:23 Last Admin: 05/28/20 14:29 Dose: 1.5 mg Documented by: Hydromorphone HCl (Dilaudid) 0.5 mg IVPUSH Q2H PRN PRN Reason: Pain (severe 7-10) Hydromorphone HCl (Dilaudid) 2 mg IVPUSH Q2H PRN PRN Reason: Pain (severe 7-10) Last Admin: 05/28/20 19:26 Dose: 2 mg Documented by: Dextrose/Sodium Chloride (Dextrose 5%-Normal Saline) 1,000 mls @ 500 mls/hr IV ASDIRECTED [facility] Last Admin: 05/28/20 20:05 Dose: 500 mls/hr Documented by: Nitroglycerin/Dextrose (Nitroglycerin 25 Mg/D5w 250 Ml) 25 mg in 250 mls @ 6 mls/hr IV TITRATE [facility]; Protocol Last Admin: 05/28/20 13:16 Dose: 10 mcg/min, 6 mls/hr Documented by: Sodium Chloride (Normal Saline) 100 mls @ 60 mls/hr IV ASDIRECTED [facility] Sodium Chloride (Normal Saline) 1,000 mls @ 999 mls/hr IV ONETIME ONE Stop: 05/28/20 19:27 Last Admin: 05/28/20 18:36 Dose: 999 mls/hr Documented by: Remdesivir 200 mg/ Sodium (Chloride) 250 mls @ 250 mls/hr IV ONETIME ONE Stop: 05/28/20 20:59 Last Admin: 05/28/20 22:04 Dose: 250 mls/hr Documented by: Sodium Chloride (Normal Saline) 1,000 mls @ 125 mls/hr IV ASDIRECTED [facility] Last Admin: 05/29/20 08:33 Dose: 125 mls/hr Documented by: Ibuprofen (Motrin) 800 mg PO ONETIME ONE Stop: 05/28/20 13:36 Last Admin: 05/28/20 13:56 Dose: 800 mg Documented by: Insulin Human Lispro (Humalog) 0 unit SUBCUT TIDACOX [facility]; Protocol Last Admin: 05/29/20 11:45 Dose: Not Given Documented by: Iopamidol (Isovue-370 (76%)) 100 ml IVPUSH ONETIME ONE Stop: 05/28/20 18:00 Last Admin: 05/28/20 18:21 Dose: 100 ml Documented by: Ketorolac Tromethamine (Toradol) 30 mg IVPUSH ONETIME [facility] Last Admin: 05/28/20 10:16 Dose: 30 mg Documented by: Ketorolac Tromethamine (Toradol) 30 mg IV Q6H PRN PRN Reason: Pain (moderate 4-6) Last Admin: 05/28/20 18:45 Dose: 30 mg Documented by: Lorazepam (Ativan) 0.5 mg IV ONETIME ONE Stop: 05/28/20 10:45 Last Admin: 05/28/20 10:56 Dose: 0.5 mg Documented by: Lorazepam (Ativan) 1 mg IV ONETIME ONE Stop: 05/28/20 13:35 Last Admin: 05/28/20 13:56 Dose: 1 mg Documented by: Lorazepam (Ativan) 1 mg IV Q6H PRN PRN Reason: Anxiety Last Admin: 05/29/20 11:10 Dose: 1 mg Documented by: Methylprednisolone Sodium Succinate (Solu-Medrol) 125 mg IVPUSH ONETIME ONE Stop: 05/28/20 10:07 Last Admin: 05/28/20 10:16 Dose: 125 mg Documented by: Naproxen (Naprosyn) 440 mg PO BID [facility] Last Admin: 05/29/20 01:51 Dose: Not Given Documented by: Naproxen (Naprosyn) 500 mg PO BID [facility] Last Admin: 05/29/20 08:41 Dose: 500 mg Documented by: Regadenoson (Lexiscan) 0.4 mg IVPUSH ONETIME ONE Stop: 05/29/20 07:52 Last Admin: 05/29/20 10:26 Dose: Not Given Documented by: - Exam Quality Assessment: No: Supplemental Oxygen General: Alert, Oriented HEENT: Pupils Equal, EOMI, Mucous Membr. Moist/[place] Neck: Supple Lungs: Clear to Auscultation, Normal Respiratory Effort Cardiovascular: Regular Rate, Regular Rhythm GI/Abdominal Exam: Normal Bowel Sounds, Soft, Non-Tender, No Organomegaly, No Distention, No Abnormal Bruit Extremities: Normal Inspection, Normal Range of Motion, Non-Tender, No Pedal Edema, Normal Capillary Refill Skin: Warm, Dry, Intact Neurological: No New Focal Deficit Psy/Mental Status: Alert, Normal Affect, Normal Mood - Patient Data Lab Results Last 24 hrs: Laboratory Results - last 24 hr 05/28/20 05/28/20 05/28/20 Range/Units 12:38 17:44 17:44 WBC (4.23-9.07) K/mm3 RBC (4.63-6.08) M/mm3 Hgb (13.7-17.5) gm/dl Hct (40.1-51.0) % MCV (79.0-92.2) fl MCH (25.7-32.2) pg MCHC (32.2-35.5) g/dl RDW Std Deviation (35.1-43.9) fL Plt Count (163-337) K/mm3 MPV (9.4-12.3) fl Neut % (Auto) (34.0-67.9) % Lymph % (Auto) (21.8-53.1) % Dixon % (Auto) (5.3-12.2) % Eos % (Auto) (0.8-7.0) Baso % (Auto) (0.1-1.2) % Neut # (Auto) (1.78-5.38) K/mm3 Lymph # (Auto) (1.32-3.57) K/mm3 Dixon # (Auto) (0.30-0.82) K/mm3 Eos # (Auto) (0.04-0.54) K/mm3 Baso # (Auto) (0.01-0.08) K/mm3 Manual Slide Review Sodium (136-145) mEq/L Potassium (3.5-5.1) mEq/L Chloride (98-107) mEq/L Carbon Dioxide (21-32) mEq/L Anion Gap (5-15) BUN (7-18) mg/dL Creatinine (0.7-1.3) mg/dL Est Cr Clr Drug Dosing mL/min Estimated GFR (MDRD) (>60) mL/min BUN/Creatinine Ratio (14-18) Glucose (74-106) mg/dL Calcium (8.5-10.1) mg/dL Magnesium (1.8-2.4) mg/dl Ferritin 139 (26-388) ng/ml Total Bilirubin (0.2-1.0) mg/dL Direct Bilirubin (0.0-0.2) mg/dl Indirect Bilirubin AST (15-37) U/L ALT (16-63) U/L Alkaline Phosphatase (46-116) U/L Lactate Dehydrogenase 258 H (85-227) U/L C-Reactive Protein (<1.0) mg/dL NT-Pro-B Natriuret Pep (0-125) pg/mL Total Protein (6.4-8.2) g/dl Albumin (3.4-5.0) g/dl Globulin gm/dL Albumin/Globulin Ratio (1-2) Vitamin D 25-Hydroxy (30.0-100.0) ng/ml Procalcitonin <0.05 ng/mL 05/28/20 05/28/20 05/29/20 Range/Units 17:44 20:41 05:58 WBC (4.23-9.07) K/mm3 RBC (4.63-6.08) M/mm3 Hgb (13.7-17.5) gm/dl Hct (40.1-51.0) % MCV (79.0-92.2) fl MCH (25.7-32.2) pg MCHC (32.2-35.5) g/dl RDW Std Deviation (35.1-43.9) fL Plt Count (163-337) K/mm3 MPV (9.4-12.3) fl Neut % (Auto) (34.0-67.9) % Lymph % (Auto) (21.8-53.1) % Dixon % (Auto) (5.3-12.2) % Eos % (Auto) (0.8-7.0) Baso % (Auto) (0.1-1.2) % Neut # (Auto) (1.78-5.38) K/mm3 Lymph # (Auto) (1.32-3.57) K/mm3 Dixon # (Auto) (0.30-0.82) K/mm3 Eos # (Auto) (0.04-0.54) K/mm3 Baso # (Auto) (0.01-0.08) K/mm3 Manual Slide Review Sodium (136-145) mEq/L Potassium (3.5-5.1) mEq/L Chloride (98-107) mEq/L Carbon Dioxide (21-32) mEq/L Anion Gap (5-15) BUN (7-18) mg/dL Creatinine (0.7-1.3) mg/dL Est Cr Clr Drug Dosing mL/min Estimated GFR (MDRD) (>60) mL/min BUN/Creatinine Ratio (14-18) Glucose (74-106) mg/dL Calcium (8.5-10.1) mg/dL Magnesium (1.8-2.4) mg/dl Ferritin (26-388) ng/ml Total Bilirubin (0.2-1.0) mg/dL Direct Bilirubin 0.10 (0.0-0.2) mg/dl Indirect Bilirubin 0.20 AST (15-37) U/L ALT (16-63) U/L Alkaline Phosphatase (46-116) U/L Lactate Dehydrogenase (85-227) U/L C-Reactive Protein (<1.0) mg/dL NT-Pro-B Natriuret Pep 21 (0-125) pg/mL Total Protein (6.4-8.2) g/dl Albumin (3.4-5.0) g/dl Globulin gm/dL Albumin/Globulin Ratio (1-2) Vitamin D 25-Hydroxy 8.7 L (30.0-100.0) ng/ml Procalcitonin ng/mL 05/29/20 05/30/20 05/30/20 Range/Units 05:58 05:24 05:24 WBC 17.28 H (4.23-9.07) K/mm3 RBC 4.05 L (4.63-6.08) M/mm3 Hgb 12.6 L (13.7-17.5) gm/dl Hct 38.7 L (40.1-51.0) % MCV 95.6 H (79.0-92.2) fl MCH 31.1 (25.7-32.2) pg MCHC 32.6 (32.2-35.5) g/dl RDW Std Deviation 42.2 (35.1-43.9) fL Plt Count 268 (163-337) K/mm3 MPV 10.8 (9.4-12.3) fl Neut % (Auto) 79.0 H (34.0-67.9) % Lymph % (Auto) 12.8 L (21.8-53.1) % Dixon % (Auto) 7.3 (5.3-12.2) % Eos % (Auto) 0.1 L (0.8-7.0) Baso % (Auto) 0.1 (0.1-1.2) % Neut # (Auto) 13.66 H (1.78-5.38) K/mm3 Lymph # (Auto) 2.21 (1.32-3.57) K/mm3 Dixon # (Auto) 1.27 H (0.30-0.82) K/mm3 Eos # (Auto) 0.01 L (0.04-0.54) K/mm3 Baso # (Auto) 0.01 (0.01-0.08) K/mm3 Manual Slide Review Normal smear Sodium 146 H (136-145) mEq/L Potassium 3.8 (3.5-5.1) mEq/L Chloride 107 (98-107) mEq/L Carbon Dioxide 30 (21-32) mEq/L Anion Gap 12.8 (5-15) BUN 23 H (7-18) mg/dL Creatinine 0.9 (0.7-1.3) mg/dL Est Cr Clr Drug Dosing 119.24 mL/min Estimated GFR (MDRD) > 60 (>60) mL/min BUN/Creatinine Ratio 25.6 H (14-18) Glucose 133 H (74-106) mg/dL Calcium 8.5 (8.5-10.1) mg/dL Magnesium 2.0 (1.8-2.4) mg/dl Ferritin (26-388) ng/ml Total Bilirubin 0.2 (0.2-1.0) mg/dL Direct Bilirubin 0.10 (0.0-0.2) mg/dl Indirect Bilirubin 0.10 AST 16 (15-37) U/L ALT 36 (16-63) U/L Alkaline Phosphatase 55 (46-116) U/L Lactate Dehydrogenase (85-227) U/L C-Reactive Protein <0.2 (<1.0) mg/dL NT-Pro-B Natriuret Pep (0-125) pg/mL Total Protein 6.9 (6.4-8.2) g/dl Albumin 3.7 (3.4-5.0) g/dl Globulin 3.2 gm/dL Albumin/Globulin Ratio 1.2 (1-2) Vitamin D 25-Hydroxy (30.0-100.0) ng/ml Procalcitonin ng/mL 05/30/20 Range/Units 05:24 WBC (4.23-9.07) K/mm3 RBC (4.63-6.08) M/mm3 Hgb (13.7-17.5) gm/dl Hct (40.1-51.0) % MCV (79.0-92.2) fl MCH (25.7-32.2) pg MCHC (32.2-35.5) g/dl RDW Std Deviation (35.1-43.9) fL Plt Count (163-337) K/mm3 MPV (9.4-12.3) fl Neut % (Auto) (34.0-67.9) % Lymph % (Auto) (21.8-53.1) % Dixon % (Auto) (5.3-12.2) % Eos % (Auto) (0.8-7.0) Baso % (Auto) (0.1-1.2) % Neut # (Auto) (1.78-5.38) K/mm3 Lymph # (Auto) (1.32-3.57) K/mm3 Dixon # (Auto) (0.30-0.82) K/mm3 Eos # (Auto) (0.04-0.54) K/mm3 Baso # (Auto) (0.01-0.08) K/mm3 Manual Slide Review Sodium (136-145) mEq/L Potassium (3.5-5.1) mEq/L Chloride (98-107) mEq/L Carbon Dioxide (21-32) mEq/L Anion Gap (5-15) BUN (7-18) mg/dL Creatinine (0.7-1.3) mg/dL Est Cr Clr Drug Dosing mL/min Estimated GFR (MDRD) (>60) mL/min BUN/Creatinine Ratio (14-18) Glucose (74-106) mg/dL Calcium (8.5-10.1) mg/dL Magnesium (1.8-2.4) mg/dl Ferritin (26-388) ng/ml Total Bilirubin 0.2 (0.2-1.0) mg/dL Direct Bilirubin < 0.05 (0.0-0.2) mg/dl Indirect Bilirubin TNP AST 17 (15-37) U/L ALT 37 (16-63) U/L Alkaline Phosphatase 54 (46-116) U/L Lactate Dehydrogenase (85-227) U/L C-Reactive Protein (<1.0) mg/dL NT-Pro-B Natriuret Pep (0-125) pg/mL Total Protein 7.0 (6.4-8.2) g/dl Albumin 3.7 (3.4-5.0) g/dl Globulin 3.3 gm/dL Albumin/Globulin Ratio 1.1 (1-2) Vitamin D 25-Hydroxy (30.0-100.0) ng/ml Procalcitonin ng/mL Result Diagrams: 05/30/20 05:24 05/30/20 05:24 Ady Results Last 24 hrs: Microbiology 05/28/20 19:00 Aerobic Blood Culture - Preliminary Blood - Venous NO GROWTH AFTER 1 DAY Anaerobic Blood Culture - Preliminary NO GROWTH AFTER 1 DAY 05/28/20 18:50 Aerobic Blood Culture - Preliminary Blood - Venous - Lab Draw NO GROWTH AFTER 1 DAY Anaerobic Blood Culture - Preliminary NO GROWTH AFTER 1 DAY Sepsis Event Note - Evaluation Sepsis Screening Result: No Definite Risk - Focused Exam Vital Signs: Vital Signs Temp Pulse Resp BP Pulse Ox 05/30/20 11:46 97.9 F 81 17 152/88 H 95 05/30/20 08:23 80 16 146/91 H 98 05/30/20 06:58 84 157/97 H 96 05/30/20 03:57 78 94 L 05/30/20 03:50 97.7 F 84 18 98 05/30/20 01:07 156/95 H 05/30/20 01:05 97.7 F 85 18 96 - Problem List & Annotations (1) Anterior chest wall pain SNOMED Code(s): 715462041 Code(s): R07.89 - OTHER CHEST PAIN Status: Acute Current Visit: No (2) COVID-19 SNOMED Code(s): 384823146 Code(s): U07.1 - COVID-19 Status: Acute Current Visit: Yes - Problem List Review Problem List Initiated/Reviewed/Updated: Yes - My Orders Last 24 Hours: My Active Orders 05/29/20 15:06 LORazepam [Ativan] 1 mg PO Q6H PRN 05/29/20 17:00 Indomethacin [Indocin] 50 mg PO TIDMEALS 05/30/20 09:00 Enoxaparin [Lovenox] 40 mg SUBCUT DAILY 05/31/20 05:11 CMP [COMPREHENSIVE METABOLIC PN,CMP] [CHEM] AM D Dimer [D-DIMER QUANTITATIVE] [COAG] AM - Plan Plan:: This is a 44 yo white male with past medical hx/o Impaired Hearing, Hx/o Renal Stone, Childhood Meningitis and Obesity who comes in for lingering anterior chest pain that has been going off and on since January of 2020. Assessment: Acute: Covid-19 Re-infection -Initial infection Dec -Patient is asymptomatic in regards to respiratory symptoms -Unfortunately no test can be done to screen for Covid-19 variants: [place], [place], and [place] -Plan: Continue remdesivir although I think there is little benefit. Stop dexamethasone with the increase in anxiety and increase in white count. There is no benefit with negative inflammatory markers, D-dimer, and not on oxygen. Chest wall pain Costochondritis -Worsened in April, but first documentation of an ER visit for chest pain was in January -No family hx/o premature CAD or hx/o GERD -He was seen by multiple providers since January -Was seen in ED 3 days prior to admission; negative for PE and basic cardiac work up -Sent home with Naproxen and Percocet but w/o improvement of symptom -EKG shows sinus tachy cardia; no ST elevation in all leads to suggest pericarditis -Troponin x 2 negative -CT of the chest was negative for any acute findings. Echocardiogram was also normal although it was a technically difficult study. -The repeatedly negative work-up makes it most likely this is a chest wall pain/inflammation. It is most likely something along the lines of costochondritis. Elevated blood pressure without diagnosis of hypertension -Likely secondary to steroids, NSAIDs, anxiety, obesity, and possibly poor technique secondary to his large arms -Treatment not necessary at this time Class II Obese -BMI of 39.4 -Dietary consult for weight management -A1C level Chronic: Impaired Hearing, Hx/o Renal Stone, Childhood Meningitis and Obesity Plan: Continue indomethacin. Stop Dilaudid. Continue oxycodone as needed. Decrease Lovenox to 40 mg daily especially since his D-dimer is normal. Cont inue monitoring oxygenation status. Consider discharge after he completes remdesivir which will be late night.
[2020-05-30] MEDS ORDERED: hydrALAZINE 20 MG/ML SDV IVPUSH PRN (15:49)
[2020-05-30] MEDS: LORazepam 1 MG Tab PO PRN (17:03)
[2020-05-30] MEDS: tiZANidine 4 MG Tab PO PRN (18:37)
[2020-05-30] MEDS: REMDESIVIR 100 MG in Sodium Chloride 0.9% 100 ML IV SCH (19:39)
[2020-05-31] MEDS: oxyCODONE 5 MG Tab PO PRN ×5 (05:07→23:10)
[2020-05-31] MEDS: Indomethacin 25 MG Cap PO SCH ×3 (06:07→16:51)
[2020-05-31] MEDS: Acetaminophen 325 MG Tab PO PRN ×2 (08:54→14:42)
[2020-05-31] MEDS: Ondansetron 4 MG/2 ML SDV IV PRN ×3 (08:54→14:54)
[2020-05-31] MEDS: Zinc Sulfate 220 MG Cap PO SCH (08:56)
[2020-05-31] MEDS: Gabapentin 300 MG Cap PO SCH ×2 (08:56→20:40)
[2020-05-31] MEDS: Enoxaparin 40 MG/0.4 ML Syringe SUBCUT SCH (08:56)
--- NOTE | 2020-05-31 09:22 | PCM.PN ---
- General Info Date of Service: 05/31/20 Admission Dx/Problem (Free Text): Admission Diagnosis/Problem Admission Diagnosis/Problem Chest pain Functional Status: Reports: Pain Controlled (for the most part ), Tolerating Diet, Ambulating, Urinating. Denies: New Symptoms - Review of Systems General: Reports: No Symptoms. Denies: Fever, Weakness, Fatigue, Malaise, Chills HEENT: Reports: No Symptoms. Denies: Headaches, Sore Throat Pulmonary: Reports: No Symptoms, Pleuritic Chest Pain. Denies: Shortness of Breath, Cough, Sputum, Wheezing Cardiovascular: Reports: Chest Pain (chest wall ). Denies: Palpitations, Dyspnea on Exertion, Orthopnea, Edema Gastrointestinal: Reports: No Symptoms. Denies: Abdominal Pain, Constipation, Diarrhea, Nausea, Vomiting Genitourinary: Reports: No Symptoms. Denies: Pain Musculoskeletal: Reports: No Symptoms Skin: Reports: No Symptoms. Denies: Cyanosis Neurological: Reports: No Symptoms. Denies: Confusion, Difficulty Walking, Weakness, Gait Disturbance Psychiatric: Reports: No Symptoms - Patient Data Vitals - Most Recent: Last Vital Signs Temp 97.7 F 05/31/20 05:12 Pulse 58 L 05/31/20 05:12 Resp 18 05/31/20 05:12 BP 156/86 H 05/31/20 05:12 Pulse Ox 96 05/31/20 05:12 Weight - Most Recent: 322 lb I&O - Last 24 Hours: Intake & Output 05/30/20 05/31/20 05/31/20 22:59 06:59 14:59 Intake Total 920 550 Output Total 450 2300 Balance 470 -1750 Lab Results Last 24 Hours: Laboratory Results - last 24 hr 05/31/20 05/31/20 05/31/20 Range/Units 05:01 05:01 05:01 WBC 11.71 H (4.23-9.07) K/mm3 RBC 4.48 L (4.63-6.08) M/mm3 Hgb 14.0 (13.7-17.5) gm/dl Hct 42.4 (40.1-51.0) % MCV 94.6 H (79.0-92.2) fl MCH 31.3 (25.7-32.2) pg MCHC 33.0 (32.2-35.5) g/dl RDW Std Deviation 42.9 (35.1-43.9) fL Plt Count 248 (163-337) K/mm3 MPV 10.7 (9.4-12.3) fl Neut % (Auto) 54.9 (34.0-67.9) % Lymph % (Auto) 32.0 (21.8-53.1) % [place] % (Auto) 9.2 (5.3-12.2) % Eos % (Auto) 2.2 (0.8-7.0) Baso % (Auto) 0.4 (0.1-1.2) % Neut # (Auto) 6.42 H (1.78-5.38) K/mm3 Lymph # (Auto) 3.75 H (1.32-3.57) K/mm3 [place] # (Auto) 1.08 H (0.30-0.82) K/mm3 Eos # (Auto) 0.26 (0.04-0.54) K/mm3 Baso # (Auto) 0.05 (0.01-0.08) K/mm3 Manual Slide Review Normal smear D-Dimer, Quantitative 0.28 (0.19-0.50) mg/L Sodium 142 (136-145) mEq/L Potassium 3.9 (3.5-5.1) mEq/L Chloride 103 (98-107) mEq/L Carbon Dioxide 31 (21-32) mEq/L Anion Gap 11.9 (5-15) BUN 22 H (7-18) mg/dL Creatinine 0.9 (0.7-1.3) mg/dL Est Cr Clr Drug Dosing 119.24 mL/min Estimated GFR (MDRD) > 60 (>60) mL/min BUN/Creatinine Ratio 24.4 H (14-18) Glucose 99 (74-106) mg/dL Calcium 8.6 (8.5-10.1) mg/dL Magnesium 2.0 (1.8-2.4) mg/dl Total Bilirubin 0.2 (0.2-1.0) mg/dL AST 14 L (15-37) U/L ALT 37 (16-63) U/L Alkaline Phosphatase 55 (46-116) U/L C-Reactive Protein <0.2 (<1.0) mg/dL Total Protein 7.1 (6.4-8.2) g/dl Albumin 3.7 (3.4-5.0) g/dl Globulin 3.4 gm/dL Albumin/Globulin Ratio 1.1 (1-2) Ady Results Last 24 Hours: Microbiology 05/28/20 19:00 Aerobic Blood Culture - Preliminary Blood - Venous NO GROWTH AFTER 2 DAYS Anaerobic Blood Culture - Preliminary NO GROWTH AFTER 2 DAYS 05/28/20 18:50 Aerobic Blood Culture - Preliminary Blood - Venous - Lab Draw NO GROWTH AFTER 2 DAYS Anaerobic Blood Culture - Preliminary NO GROWTH AFTER 2 DAYS Med Orders - Current: Current Medications Acetaminophen (Tylenol) 650 mg RECTAL Q4H PRN PRN Reason: Pain (mild 1-3) Albuterol/Ipratropium (Duoneb 3.0-0.5 Mg/3 Ml) 3 ml NEB Q4H PRN PRN Reason: Shortness Of Breath/wheezing Bisacodyl (Dulcolax) 5 mg PO DAILY PRN PRN Reason: Constipation Enoxaparin Sodium (Enoxaparin 40 Mg/0.4 Ml Syringe) 40 mg SUBCUT DAILY [facility] Last Admin: 05/31/20 08:56 Dose: 40 mg Documented by: Gabapentin (Gabapentin 300 Mg Cap) 300 mg PO BID [facility] Last Admin: 05/31/20 08:56 Dose: 300 mg Documented by: Guaifenesin/Phenylephrine HCl (Robitussin Dm) 10 ml PO Q4H PRN PRN Reason: Cough Hydralazine HCl (Apresoline) 20 mg IVPUSH Q4H PRN PRN Reason: Hypertension Promethazine HCl 12.5 mg/ (Sodium Chloride) 50.5 mls @ 100 mls/hr IV Q6H PRN PRN Reason: Nausea/Vomiting Remdesivir 100 mg/ Sodium (Chloride) 100 mls @ 100 mls/hr IV Q24H [facility] Stop: 06/01/20 20:59 Last Admin: 05/30/20 19:39 Dose: 100 mls/hr Documented by: Indomethacin (Indomethacin 25 Mg Cap) 50 mg PO TIDMEALS [facility] Last Admin: 05/31/20 06:07 Dose: 50 mg Documented by: Lorazepam (Ativan) 1 mg PO Q6H PRN PRN Reason: Anxiety Last Admin: 05/30/20 17:03 Dose: 1 mg Documented by: Ondansetron HCl (Zofran) 4 mg IV Q6H PRN PRN Reason: Nausea/Vomiting Last Admin: 05/31/20 08:54 Dose: 4 mg Documented by: Oxycodone HCl (Oxycodone 5 Mg Tab) 5 mg PO Q6HR PRN PRN Reason: Pain Last Admin: 05/30/20 10:20 Dose: 5 mg Documented by: Polyethylene Glycol (Miralax) 17 gm PO DAILY PRN PRN Reason: Constipation Senna/Docusate Sodium (Senna Plus) 1 tab PO BID PRN PRN Reason: Constipation Last Admin: 05/28/20 18:56 Dose: 1 tab Documented by: Senna/Docusate Sodium (Docusate Sodium/Sennosides 50-8.6 Mg Tab) 1 tab PO DAILY [facility] Last Admin: 05/31/20 08:55 Dose: 1 tab Documented by: Sodium Chloride (Saline Flush) 10 ml FLUSH ASDIRECTED [facility] Last Admin: 05/28/20 18:22 Dose: 10 ml Documented by: Tizanidine HCl (Zanaflex) 4 mg PO TID PRN PRN Reason: Spasms Last Admin: 05/30/20 18:37 Dose: 4 mg Documented by: Zinc Sulfate (Zinc Sulfate 220 Mg Cap) 220 mg PO DAILY [facility] Last Admin: 05/31/20 08:56 Dose: 220 mg Documented by: Zolpidem Tartrate (Ambien) 5 mg PO BEDTIME PRN PRN Reason: Sleep Last Admin: 05/30/20 23:56 Dose: 5 mg Documented by: Discontinued Medications Aspirin (Aspirin) 324 mg PO ONETIME ONE Stop: 05/28/20 13:07 Last Admin: 05/28/20 13:13 Dose: 324 mg Documented by: Al Hydroxide/Mg Hydroxide 30 (ml/ Lidocaine HCl 15 ml) 0 ml PO ONETIME ONE Stop: 05/28/20 18:27 Last Admin: 05/28/20 18:50 Dose: 45 ml Documented by: Dexamethasone (Decadron) 6 mg IVPUSH DAILY [facility] Stop: 06/07/20 09:01 Dexamethasone (Dexamethasone) 6 mg PO DAILY [facility] Last Admin: 05/29/20 08:41 Dose: 6 mg Documented by: Enoxaparin Sodium (Lovenox) 40 mg SUBCUT Q12H [facility] Last Admin: 05/29/20 08:32 Dose: 40 mg Documented by: Fentanyl (Sublimaze) 100 mcg IVPUSH ONETIME ONE Stop: 05/28/20 12:05 Last Admin: 05/28/20 12:23 Dose: 100 mcg Documented by: Furosemide (Lasix) 40 mg IVPUSH NOW ONE Stop: 05/28/20 13:08 Last Admin: 05/28/20 13:13 Dose: 40 mg Documented by: Furosemide (Lasix) 20 mg IVPUSH ONETIME ONE Stop: 05/29/20 05:01 Last Admin: 05/29/20 05:39 Dose: 20 mg Documented by: Gabapentin (Neurontin) 600 mg PO ONETIME ONE Stop: 05/28/20 13:36 Last Admin: 05/28/20 13:56 Dose: 600 mg Documented by: Hydromorphone HCl (Dilaudid) 1 mg IVPUSH ONETIME ONE Stop: 05/28/20 10:06 Last Admin: 05/28/20 10:17 Dose: 1 mg Documented by: Hydromorphone HCl (Dilaudid) 1 mg IVPUSH ONETIME ONE Stop: 05/28/20 10:45 Last Admin: 05/28/20 10:55 Dose: 1 mg Documented by: Hydromorphone HCl (Dilaudid) 1 mg IVPUSH ONETIME ONE Stop: 05/28/20 12:57 Last Admin: 05/28/20 13:03 Dose: 1 mg Documented by: Hydromorphone HCl (Dilaudid) 1.5 mg IVPUSH ONETIME ONE Stop: 05/28/20 14:23 Last Admin: 05/28/20 14:29 Dose: 1.5 mg Documented by: Hydromorphone HCl (Dilaudid) 0.5 mg IVPUSH Q2H PRN PRN Reason: Pain (severe 7-10) Hydromorphone HCl (Dilaudid) 2 mg IVPUSH Q2H PRN PRN Reason: Pain (severe 7-10) Last Admin: 05/28/20 19:26 Dose: 2 mg Documented by: Hydromorphone HCl (Hydromorphone 1 Mg/Ml Syringe) 2 mg IVPUSH Q2H PRN PRN Reason: Pain (severe 7-10) Last Admin: 05/30/20 09:21 Dose: 2 mg Documented by: Dextrose/Sodium Chloride (Dextrose 5%-Normal Saline) 1,000 mls @ 500 mls/hr IV ASDIRECTED [facility] Last Admin: 05/28/20 20:05 Dose: 500 mls/hr Documented by: Nitroglycerin/Dextrose (Nitroglycerin 25 Mg/D5w 250 Ml) 25 mg in 250 mls @ 6 mls/hr IV TITRATE [facility]; Protocol Last Admin: 05/28/20 13:16 Dose: 10 mcg/min, 6 mls/hr Documented by: Sodium Chloride (Normal Saline) 100 mls @ 60 mls/hr IV ASDIRECTED [facility] Sodium Chloride (Normal Saline) 1,000 mls @ 999 mls/hr IV ONETIME ONE Stop: 05/28/20 19:27 Last Admin: 05/28/20 18:36 Dose: 999 mls/hr Documented by: Remdesivir 200 mg/ Sodium (Chloride) 250 mls @ 250 mls/hr IV ONETIME ONE Stop: 05/28/20 20:59 Last Admin: 05/28/20 22:04 Dose: 250 mls/hr Documented by: Sodium Chloride (Normal Saline) 1,000 mls @ 125 mls/hr IV ASDIRECTED [facility] Last Admin: 05/29/20 08:33 Dose: 125 mls/hr Documented by: Ibuprofen (Motrin) 800 mg PO ONETIME ONE Stop: 05/28/20 13:36 Last Admin: 05/28/20 13:56 Dose: 800 mg Documented by: Insulin Human Lispro (Humalog) 0 unit SUBCUT TIDAC [facility]; Protocol Last Admin: 05/29/20 11:45 Dose: Not Given Documented by: Iopamidol (Isovue-370 (76%)) 100 ml IVPUSH ONETIME ONE Stop: 05/28/20 18:00 Last Admin: 05/28/20 18:21 Dose: 100 ml Documented by: Ketorolac Tromethamine (Toradol) 30 mg IVPUSH ONETIME [facility] Last Admin: 05/28/20 10:16 Dose: 30 mg Documented by: Ketorolac Tromethamine (Toradol) 30 mg IV Q6H PRN PRN Reason: Pain (moderate 4-6) Last Admin: 05/28/20 18:45 Dose: 30 mg Documented by: Lorazepam (Ativan) 0.5 mg IV ONETIME ONE Stop: 05/28/20 10:45 Last Admin: 05/28/20 10:56 Dose: 0.5 mg Documented by: Lorazepam (Ativan) 1 mg IV ONETIME ONE Stop: 05/28/20 13:35 Last Admin: 05/28/20 13:56 Dose: 1 mg Documented by: Lorazepam (Ativan) 1 mg IV Q6H PRN PRN Reason: Anxiety Last Admin: 05/29/20 11:10 Dose: 1 mg Documented by: Methylprednisolone Sodium Succinate (Solu-Medrol) 125 mg IVPUSH ONETIME ONE Stop: 05/28/20 10:07 Last Admin: 05/28/20 10:16 Dose: 125 mg Documented by: Naproxen (Naprosyn) 440 mg PO BID [facility] Last Admin: 05/29/20 01:51 Dose: Not Given Documented by: Naproxen (Naprosyn) 500 mg PO BID [facility] Last Admin: 05/29/20 08:41 Dose: 500 mg Documented by: Regadenoson (Lexiscan) 0.4 mg IVPUSH ONETIME ONE Stop: 05/29/20 07:52 Last Admin: 05/29/20 10:26 Dose: Not Given Documented by: - Exam Quality Assessment: DVT Prophylaxis. No: Supplemental Oxygen, Urine Catheter General: Alert, Oriented, Cooperative, No Acute Distress HEENT: Pupils Equal, Pupils Reactive, Mucous Membr. Moist/[place] Neck: Supple, Trachea Midline Lungs: Clear to Auscultation, Normal Respiratory Effort Cardiovascular: Regular Rate, Regular Rhythm GI/Abdominal Exam: Normal Bowel Sounds, Soft, Non-Tender, No Distention (Male) Exam: Deferred Back Exam: Normal Inspection, Full Range of Motion Extremities: Normal Inspection, Normal Range of Motion, Non-Tender, No Pedal Edema, Normal Capillary Refill Peripheral Pulses: 2+: Radial (L), Radial (R), Dorsalis Pedis (L), Dorsalis Pedis (R) Skin: Warm, Dry, Intact Neurological: No New Focal Deficit Psy/Mental Status: Alert, Normal Affect, Normal Mood - Patient Data Lab Results Last 24 hrs: Laboratory Results - last 24 hr 05/31/20 05/31/20 05/31/20 Range/Units 05:01 05:01 05:01 WBC 11.71 H (4.23-9.07) K/mm3 RBC 4.48 L (4.63-6.08) M/mm3 Hgb 14.0 (13.7-17.5) gm/dl Hct 42.4 (40.1-51.0) % MCV 94.6 H (79.0-92.2) fl MCH 31.3 (25.7-32.2) pg MCHC 33.0 (32.2-35.5) g/dl RDW Std Deviation 42.9 (35.1-43.9) fL Plt Count 248 (163-337) K/mm3 MPV 10.7 (9.4-12.3) fl Neut % (Auto) 54.9 (34.0-67.9) % Lymph % (Auto) 32.0 (21.8-53.1) % [place] % (Auto) 9.2 (5.3-12.2) % Eos % (Auto) 2.2 (0.8-7.0) Baso % (Auto) 0.4 (0.1-1.2) % Neut # (Auto) 6.42 H (1.78-5.38) K/mm3 Lymph # (Auto) 3.75 H (1.32-3.57) K/mm3 [place] # (Auto) 1.08 H (0.30-0.82) K/mm3 Eos # (Auto) 0.26 (0.04-0.54) K/mm3 Baso # (Auto) 0.05 (0.01-0.08) K/mm3 Manual Slide Review Normal smear D-Dimer, Quantitative 0.28 (0.19-0.50) mg/L Sodium 142 (136-145) mEq/L Potassium 3.9 (3.5-5.1) mEq/L Chloride 103 (98-107) mEq/L Carbon Dioxide 31 (21-32) mEq/L Anion Gap 11.9 (5-15) BUN 22 H (7-18) mg/dL Creatinine 0.9 (0.7-1.3) mg/dL Est Cr Clr Drug Dosing 119.24 mL/min Estimated GFR (MDRD) > 60 (>60) mL/min BUN/Creatinine Ratio 24.4 H (14-18) Glucose 99 (74-106) mg/dL Calcium 8.6 (8.5-10.1) mg/dL Magnesium 2.0 (1.8-2.4) mg/dl Total Bilirubin 0.2 (0.2-1.0) mg/dL AST 14 L (15-37) U/L ALT 37 (16-63) U/L Alkaline Phosphatase 55 (46-116) U/L C-Reactive Protein <0.2 (<1.0) mg/dL Total Protein 7.1 (6.4-8.2) g/dl Albumin 3.7 (3.4-5.0) g/dl Globulin 3.4 gm/dL Albumin/Globulin Ratio 1.1 (1-2) Result Diagrams: 05/31/20 05:01 05/31/20 05:01 Ady Results Last 24 hrs: Microbiology 05/28/20 19:00 Aerobic Blood Culture - Preliminary Blood - Venous NO GROWTH AFTER 2 DAYS Anaerobic Blood Culture - Preliminary NO GROWTH AFTER 2 DAYS 05/28/20 18:50 Aerobic Blood Culture - Preliminary Blood - Venous - Lab Draw NO GROWTH AFTER 2 DAYS Anaerobic Blood Culture - Preliminary NO GROWTH AFTER 2 DAYS Sepsis Event Note - Evaluation Sepsis Screening Result: No Definite Risk - Focused Exam Vital Signs: Vital Signs Temp Pulse Resp BP Pulse Ox 05/31/20 05:12 97.7 F 58 L 18 156/86 H 96 05/31/20 00:00 65 147/96 H 98 05/30/20 23:59 97.7 F 72 18 97 - Problem List & Annotations (1) Costochondritis SNOMED Code(s): 81431620 Code(s): M94.0 - CHONDROCOSTAL JUNCTION SYNDROME [TIETZE] Status: Acute Priority: High Current Visit: Yes (2) Elevated blood pressure reading SNOMED Code(s): 19893832 Code(s): R03.0 - ELEVATED BLOOD-PRESSURE READING, W/O DIAGNOSIS OF HTN Status: Acute Priority: Medium Current Visit: Yes (3) Obesity SNOMED Code(s): 855951869, 237397411 Code(s): E66.9 - OBESITY, UNSPECIFIED Status: Chronic Priority: Medium Current Visit: Yes Qualifiers: Obesity type: unspecified obesity type Obesity classification: adult class 3 (BMI >= 40) Body mass index: BMI 40.0-44.9 (4) COVID-19 SNOMED Code(s): 835333228 Code(s): U07.1 - COVID-19 Status: Acute Priority: High Current Visit: Yes (5) Anterior chest wall pain SNOMED Code(s): 021191237 Code(s): R07.89 - OTHER CHEST PAIN Status: Acute Priority: High Current Visit: Yes - Problem List Review Problem List Initiated/Reviewed/Updated: Yes - Plan Plan:: This is a 44 yo white male with past medical hx/o Impaired Hearing, Hx/o Renal Stone, Childhood Meningitis and Obesity who comes in for lingering anterior chest pain that has been going off and on since January of 2020. Assessment: Acute: Covid-19 Re-infection -Initial infection Dec -Patient is asymptomatic in regards to respiratory symptoms -Unfortunately no test can be done to screen for Covid-19 variants: [place], [place], and [place] -Plan: Continue remdesivir although I think there is little benefit. Stop dexamethasone with the increase in anxiety and increase in white count. There is no benefit with negative inflammatory markers, D-dimer, and not on oxygen. Chest wall pain Costochondritis -Worsened in April, but first documentation of an ER visit for chest pain was in January -No family hx/o premature CAD or hx/o GERD -He was seen by multiple providers since January -Was seen in ED 3 days prior to admission; negative for PE and basic cardiac work up -Sent home with Naproxen and Percocet but w/o improvement of symptom -EKG shows sinus tachy cardia; no ST elevation in all leads to suggest pericarditis -Troponin x 2 negative -CT of the chest was negative for any acute findings. Echocardiogram was also normal although it was a technically difficult study. -The repeatedly negative work-up makes it most likely this is a chest wall pain/inflammation. It is most likely something along the lines of costochondritis. Elevated blood pressure without diagnosis of hypertension -Likely secondary to steroids, NSAIDs, anxiety, obesity, and possibly poor technique secondary to his large arms -Treatment not necessary at this time Class II Obese -BMI of 39.4 -Dietary consult for weight management -A1C level ordered Chronic: Impaired Hearing, Hx/o Renal Stone, Childhood Meningitis and Obesity Plan: Continue indomethacin. Continue oxycodone as needed. Decrease Lovenox to 40 mg daily especially since his D-dimer is normal. Continue monitoring ox ygenation status. Consider discharge after he completes remdesivir which will be late night. Likely discharge on Friday.
[2020-05-31] MEDS: LORazepam 1 MG Tab PO PRN ×2 (10:31→20:40)
[2020-05-31] MEDS: REMDESIVIR 100 MG in Sodium Chloride 0.9% 100 ML IV SCH (20:45)
[2020-05-31] MEDS: Zolpidem 5 MG Tab PO PRN (23:10)
[2020-06-01] MEDS: oxyCODONE 5 MG Tab PO PRN ×4 (03:52→20:35)
[2020-06-01] MEDS: Indomethacin 25 MG Cap PO SCH ×3 (06:02→18:56)
[2020-06-01] MEDS: Acetaminophen 325 MG Tab PO PRN ×3 (08:31→20:34)
[2020-06-01] MEDS: Gabapentin 300 MG Cap PO SCH ×2 (08:31→20:35)
[2020-06-01] MEDS: Enoxaparin 40 MG/0.4 ML Syringe SUBCUT SCH (08:36)
[2020-06-01] MEDS: Zinc Sulfate 220 MG Cap PO SCH (08:36)
--- NOTE | 2020-06-01 08:54 | PCM.PN ---
- General Info Date of Service: 06/01/20 Admission Dx/Problem (Free Text): Admission Diagnosis/Problem Admission Diagnosis/Problem Chest pain Subjective Update: In to see Roberto Carlos. He is lying in bed. Reports a headache and continuing anterior chest wall pain. We discussed how headache is very common with Covid infections. Patient denies significant caffeine usage at home. He continues to remain on room air and is doing quite well. No nursing or other patient con cerns. Hopeful for discharge tomorrow after completion of remdesivir. Functional Status: Reports: Pain Controlled, Tolerating Diet, Ambulating, Urinating. Denies: New Symptoms - Review of Systems General: Reports: No Symptoms. Denies: Fever, Weakness, Fatigue, Malaise, Chills HEENT: Reports: Headaches. Denies: Sore Throat Pulmonary: Reports: Pleuritic Chest Pain. Denies: Shortness of Breath, Cough, Sputum, Wheezing Cardiovascular: Reports: Chest Pain (chest wall ). Denies: Palpitations, Dyspnea on Exertion, Edema Gastrointestinal: Reports: No Symptoms. Denies: Abdominal Pain, Constipation, Diarrhea, Nausea, Vomiting Genitourinary: Reports: No Symptoms. Denies: Pain Musculoskeletal: Reports: No Symptoms Skin: Reports: No Symptoms. Denies: Cyanosis Neurological: Reports: No Symptoms. Denies: Confusion, Pre-Existing Deficit, Difficulty Walking, Gait Disturbance Psychiatric: Reports: No Symptoms - Patient Data Vitals - Most Recent: Last Vital Signs Temp 97.9 F 06/01/20 03:53 Pulse 74 06/01/20 03:53 Resp 12 06/01/20 03:53 BP 126/75 06/01/20 03:53 Pulse Ox 96 06/01/20 03:53 Weight - Most Recent: 317 lb 11.2 oz I&O - Last 24 Hours: Intake & Output 05/31/20 06/01/20 06/01/20 22:59 06:59 14:59 Intake Total 1740 200 Output Total 1000 2800 Balance 740 -2600 Lab Results Last 24 Hours: Laboratory Results - last 24 hr 05/31/20 06/01/20 06/01/20 Range/Units 05:01 06:37 06:37 WBC 8.20 (4.23-9.07) K/mm3 RBC 4.32 L (4.63-6.08) M/mm3 Hgb 13.4 L (13.7-17.5) gm/dl Hct 40.7 (40.1-51.0) % MCV 94.2 H (79.0-92.2) fl MCH 31.0 (25.7-32.2) pg MCHC 32.9 (32.2-35.5) g/dl RDW Std Deviation 42.5 (35.1-43.9) fL Plt Count 246 (163-337) K/mm3 MPV 9.9 (9.4-12.3) fl Neut % (Auto) 51.3 (34.0-67.9) % Lymph % (Auto) 34.5 (21.8-53.1) % Green % (Auto) 10.9 (5.3-12.2) % Eos % (Auto) 2.1 (0.8-7.0) Baso % (Auto) 0.2 (0.1-1.2) % Neut # (Auto) 4.21 (1.78-5.38) K/mm3 Lymph # (Auto) 2.83 (1.32-3.57) K/mm3 Green # (Auto) 0.89 H (0.30-0.82) K/mm3 Eos # (Auto) 0.17 (0.04-0.54) K/mm3 Baso # (Auto) 0.02 (0.01-0.08) K/mm3 Hemoglobin A1c 6.0 H ( - 5.6) % Magnesium 2.0 (1.8-2.4) mg/dl C-Reactive Protein < 0.2 (<1.0) mg/dL Ady Results Last 24 Hours: Microbiology 05/28/20 19:00 Aerobic Blood Culture - Preliminary Blood - Venous NO GROWTH AFTER 3 DAYS Anaerobic Blood Culture - Preliminary NO GROWTH AFTER 3 DAYS 05/28/20 18:50 Aerobic Blood Culture - Preliminary Blood - Venous - Lab Draw NO GROWTH AFTER 3 DAYS Anaerobic Blood Culture - Preliminary NO GROWTH AFTER 3 DAYS Med Orders - Current: Current Medications Acetaminophen (Tylenol) 650 mg RECTAL Q4H PRN PRN Reason: Pain (mild 1-3) Albuterol/Ipratropium (Duoneb 3.0-0.5 Mg/3 Ml) 3 ml NEB Q4H PRN PRN Reason: Shortness Of Breath/wheezing Bisacodyl (Dulcolax) 5 mg PO DAILY PRN PRN Reason: Constipation Enoxaparin Sodium (Enoxaparin 40 Mg/0.4 Ml Syringe) 40 mg SUBCUT DAILY [facility] Last Admin: 06/01/20 08:36 Dose: 40 mg Documented by: Gabapentin (Gabapentin 300 Mg Cap) 300 mg PO BID [facility] Last Admin: 06/01/20 08:31 Dose: 300 mg Documented by: Guaifenesin/Phenylephrine HCl (Robitussin Dm) 10 ml PO Q4H PRN PRN Reason: Cough Hydralazine HCl (Hydralazine 20 Mg/Ml Sdv) 20 mg IVPUSH Q4H PRN PRN Reason: Hypertension Promethazine HCl 12.5 mg/ (Sodium Chloride) 50.5 mls @ 100 mls/hr IV Q6H PRN PRN Reason: Nausea/Vomiting Remdesivir 100 mg/ Sodium (Chloride) 100 mls @ 100 mls/hr IV Q24H [facility] Stop: 06/01/20 20:59 Last Admin: 05/31/20 20:45 Dose: 100 mls/hr Documented by: Indomethacin (Indomethacin 25 Mg Cap) 50 mg PO TIDMEALS [facility] Last Admin: 06/01/20 06:02 Dose: 50 mg Documented by: Lorazepam (Ativan) 1 mg PO Q6H PRN PRN Reason: Anxiety Last Admin: 05/31/20 20:40 Dose: 1 mg Documented by: Ondansetron HCl (Zofran) 4 mg IV Q6H PRN PRN Reason: Nausea/Vomiting Last Admin: 05/31/20 14:54 Dose: 4 mg Documented by: Oxycodone HCl (Oxycodone 5 Mg Tab) 10 mg PO Q4H PRN PRN Reason: Pain Last Admin: 06/01/20 08:38 Dose: 10 mg Documented by: Polyethylene Glycol (Miralax) 17 gm PO DAILY PRN PRN Reason: Constipation Senna/Docusate Sodium (Senna Plus) 1 tab PO BID PRN PRN Reason: Constipation Last Admin: 05/28/20 18:56 Dose: 1 tab Documented by: Senna/Docusate Sodium (Docusate Sodium/Sennosides 50-8.6 Mg Tab) 1 tab PO DAILY [facility] Last Admin: 06/01/20 08:36 Dose: 1 tab Documented by: Sodium Chloride (Saline Flush) 10 ml FLUSH ASDIRECTED [facility] Last Admin: 05/28/20 18:22 Dose: 10 ml Documented by: Tizanidine HCl (Zanaflex) 4 mg PO TID PRN PRN Reason: Spasms Last Admin: 05/30/20 18:37 Dose: 4 mg Documented by: Zinc Sulfate (Zinc Sulfate 220 Mg Cap) 220 mg PO DAILY [facility] Last Admin: 06/01/20 08:36 Dose: 220 mg Documented by: Zolpidem Tartrate (Ambien) 5 mg PO BEDTIME PRN PRN Reason: Sleep Last Admin: 05/31/20 23:10 Dose: 5 mg Documented by: Discontinued Medications Aspirin (Aspirin) 324 mg PO ONETIME ONE Stop: 05/28/20 13:07 Last Admin: 05/28/20 13:13 Dose: 324 mg Documented by: Al Hydroxide/Mg Hydroxide 30 (ml/ Lidocaine HCl 15 ml) 0 ml PO ONETIME ONE Stop: 05/28/20 18:27 Last Admin: 05/28/20 18:50 Dose: 45 ml Documented by: Dexamethasone (Decadron) 6 mg IVPUSH DAILY [facility] Stop: 06/07/20 09:01 Dexamethasone (Dexamethasone) 6 mg PO DAILY [facility] Last Admin: 05/29/20 08:41 Dose: 6 mg Documented by: Enoxaparin Sodium (Lovenox) 40 mg SUBCUT Q12H [facility] Last Admin: 05/29/20 08:32 Dose: 40 mg Documented by: Fentanyl (Sublimaze) 100 mcg IVPUSH ONETIME ONE Stop: 05/28/20 12:05 Last Admin: 05/28/20 12:23 Dose: 100 mcg Documented by: Furosemide (Lasix) 40 mg IVPUSH NOW ONE Stop: 05/28/20 13:08 Last Admin: 05/28/20 13:13 Dose: 40 mg Documented by: Furosemide (Lasix) 20 mg IVPUSH ONETIME ONE Stop: 05/29/20 05:01 Last Admin: 05/29/20 05:39 Dose: 20 mg Documented by: Gabapentin (Neurontin) 600 mg PO ONETIME ONE Stop: 05/28/20 13:36 Last Admin: 05/28/20 13:56 Dose: 600 mg Documented by: Hydralazine HCl (Hydralazine 20 Mg/Ml Sdv) 20 mg IVPUSH Q4H PRN PRN Reason: Hypertension Hydromorphone HCl (Dilaudid) 1 mg IVPUSH ONETIME ONE Stop: 05/28/20 10:06 Last Admin: 05/28/20 10:17 Dose: 1 mg Documented by: Hydromorphone HCl (Dilaudid) 1 mg IVPUSH ONETIME ONE Stop: 05/28/20 10:45 Last Admin: 05/28/20 10:55 Dose: 1 mg Documented by: Hydromorphone HCl (Dilaudid) 1 mg IVPUSH ONETIME ONE Stop: 05/28/20 12:57 Last Admin: 05/28/20 13:03 Dose: 1 mg Documented by: Hydromorphone HCl (Dilaudid) 1.5 mg IVPUSH ONETIME ONE Stop: 05/28/20 14:23 Last Admin: 05/28/20 14:29 Dose: 1.5 mg Documented by: Hydromorphone HCl (Dilaudid) 0.5 mg IVPUSH Q2H PRN PRN Reason: Pain (severe 7-10) Hydromorphone HCl (Dilaudid) 2 mg IVPUSH Q2H PRN PRN Reason: Pain (severe 7-10) Last Admin: 05/28/20 19:26 Dose: 2 mg Documented by: Hydromorphone HCl (Hydromorphone 1 Mg/Ml Syringe) 2 mg IVPUSH Q2H PRN PRN Reason: Pain (severe 7-10) Last Admin: 05/30/20 09:21 Dose: 2 mg Documented by: Dextrose/Sodium Chloride (Dextrose 5%-Normal Saline) 1,000 mls @ 500 mls/hr IV ASDIRECTED [facility] Last Admin: 05/28/20 20:05 Dose: 500 mls/hr Documented by: Nitroglycerin/Dextrose (Nitroglycerin 25 Mg/D5w 250 Ml) 25 mg in 250 mls @ 6 mls/hr IV TITRATE [facility]; Protocol Last Admin: 05/28/20 13:16 Dose: 10 mcg/min, 6 mls/hr Documented by: Sodium Chloride (Normal Saline) 100 mls @ 60 mls/hr IV ASDIRECTED [facility] Sodium Chloride (Normal Saline) 1,000 mls @ 999 mls/hr IV ONETIME ONE Stop: 05/28/20 19:27 Last Admin: 05/28/20 18:36 Dose: 999 mls/hr Documented by: Remdesivir 200 mg/ Sodium (Chloride) 250 mls @ 250 mls/hr IV ONETIME ONE Stop: 05/28/20 20:59 Last Admin: 05/28/20 22:04 Dose: 250 mls/hr Documented by: Sodium Chloride (Normal Saline) 1,000 mls @ 125 mls/hr IV ASDIRECTED [facility] Last Admin: 05/29/20 08:33 Dose: 125 mls/hr Documented by: Ibuprofen (Motrin) 800 mg PO ONETIME ONE Stop: 05/28/20 13:36 Last Admin: 05/28/20 13:56 Dose: 800 mg Documented by: Insulin Human [facility]al[facility]) [facility] Protocol Last Admin: 05/29/20 11:45 Dose: Not Given Documented by: Iopamidol (Isovue-370 (76%)) 100 ml IVPUSH ONETIME ONE Stop: 05/28/20 18:00 Last Admin: 05/28/20 18:21 Dose: 100 ml Documented by: Ketorolac Tromethamine (Toradol) 30 mg IVPUSH ONETIME [facility] Last Admin: 05/28/20 10:16 Dose: 30 mg Documented by: Ketorolac Tromethamine (Toradol) 30 mg IV Q6H PRN PRN Reason: Pain (moderate 4-6) Last Admin: 05/28/20 18:45 Dose: 30 mg Documented by: Lorazepam (Ativan) 0.5 mg IV ONETIME ONE Stop: 05/28/20 10:45 Last Admin: 05/28/20 10:56 Dose: 0.5 mg Documented by: Lorazepam (Ativan) 1 mg IV ONETIME ONE Stop: 05/28/20 13:35 Last Admin: 05/28/20 13:56 Dose: 1 mg Documented by: Lorazepam (Ativan) 1 mg IV Q6H PRN PRN Reason: Anxiety Last Admin: 05/29/20 11:10 Dose: 1 mg Documented by: Methylprednisolone Sodium Succinate (Solu-Medrol) 125 mg IVPUSH ONETIME ONE Stop: 05/28/20 10:07 Last Admin: 05/28/20 10:16 Dose: 125 mg Documented by: Naproxen (Naprosyn) 440 mg PO BID [facility] Last Admin: 05/29/20 01:51 Dose: Not Given Documented by: Naproxen (Naprosyn) 500 mg PO BID [facility] Last Admin: 05/29/20 08:41 Dose: 500 mg Documented by: Oxycodone HCl (Oxycodone 5 Mg Tab) 5 mg PO Q6HR PRN PRN Reason: Pain Last Admin: 05/30/20 10:20 Dose: 5 mg Documented by: Regadenoson (Lexiscan) 0.4 mg IVPUSH ONETIME ONE Stop: 05/29/20 07:52 Last Admin: 05/29/20 10:26 Dose: Not Given Documented by: - Exam Quality Assessment: DVT Prophylaxis. No: Supplemental Oxygen, Urine Catheter General: Alert, Oriented, Cooperative, No Acute Distress HEENT: Pupils Equal, Pupils Reactive, Mucous Membr. Moist/[place] Neck: Supple, Trachea Midline Lungs: Clear to Auscultation, Normal Respiratory Effort Cardiovascular: Regular Rate, Regular Rhythm GI/Abdominal Exam: Normal Bowel Sounds, Soft, Non-Tender, No Distention (Male) Exam: Deferred Back Exam: Normal Inspection, Full Range of Motion Extremities: Normal Inspection, Normal Range of Motion, No Pedal Edema Skin: Warm, Dry, Intact Neurological: No New Focal Deficit Psy/Mental Status: Alert, Normal Affect, Normal Mood - Patient Data Lab Results Last 24 hrs: Laboratory Results - last 24 hr 05/31/20 06/01/20 06/01/20 Range/Units 05:01 06:37 06:37 WBC 8.20 (4.23-9.07) K/mm3 RBC 4.32 L (4.63-6.08) M/mm3 Hgb 13.4 L (13.7-17.5) gm/dl Hct 40.7 (40.1-51.0) % MCV 94.2 H (79.0-92.2) fl MCH 31.0 (25.7-32.2) pg MCHC 32.9 (32.2-35.5) g/dl RDW Std Deviation 42.5 (35.1-43.9) fL Plt Count 246 (163-337) K/mm3 MPV 9.9 (9.4-12.3) fl Neut % (Auto) 51.3 (34.0-67.9) % Lymph % (Auto) 34.5 (21.8-53.1) % Green % (Auto) 10.9 (5.3-12.2) % Eos % (Auto) 2.1 (0.8-7.0) Baso % (Auto) 0.2 (0.1-1.2) % Neut # (Auto) 4.21 (1.78-5.38) K/mm3 Lymph # (Auto) 2.83 (1.32-3.57) K/mm3 Green # (Auto) 0.89 H (0.30-0.82) K/mm3 Eos # (Auto) 0.17 (0.04-0.54) K/mm3 Baso # (Auto) 0.02 (0.01-0.08) K/mm3 Hemoglobin A1c 6.0 H ( - 5.6) % Magnesium 2.0 (1.8-2.4) mg/dl C-Reactive Protein < 0.2 (<1.0) mg/dL Result Diagrams: 06/01/20 06:37 05/31/20 05:01 Ady Results Last 24 hrs: Microbiology 05/28/20 19:00 Aerobic Blood Culture - Preliminary Blood - Venous NO GROWTH AFTER 3 DAYS Anaerobic Blood Culture - Preliminary NO GROWTH AFTER 3 DAYS 05/28/20 18:50 Aerobic Blood Culture - Preliminary Blood - Venous - Lab Draw NO GROWTH AFTER 3 DAYS Anaerobic Blood Culture - Preliminary NO GROWTH AFTER 3 DAYS Sepsis Event Note - Evaluation Sepsis Screening Result: No Definite Risk - Focused Exam Vital Signs: Vital Signs Temp Pulse Resp BP Pulse Ox 06/01/20 03:53 97.9 F 74 12 126/75 96 05/31/20 23:10 98.2 F 87 14 135/79 94 L - Problem List & Annotations (1) Costochondritis SNOMED Code(s): 71753095 Code(s): M94.0 - CHONDROCOSTAL JUNCTION SYNDROME [TIETZE] Status: Acute Priority: High Current Visit: Yes (2) Elevated blood pressure reading SNOMED Code(s): 47450951 Code(s): R03.0 - ELEVATED BLOOD-PRESSURE READING, W/O DIAGNOSIS OF HTN Status: Acute Priority: Medium Current Visit: Yes (3) Obesity SNOMED Code(s): 621183565, 055836913 Code(s): E66.9 - OBESITY, UNSPECIFIED Status: Chronic Priority: Medium Current Visit: Yes Qualifiers: Obesity type: unspecified obesity type Obesity classification: adult class 3 (BMI >= 40) Body mass index: BMI 40.0-44.9 (4) COVID-19 SNOMED Code(s): 353176554 Code(s): U07.1 - COVID-19 Status: Acute Priority: High Current Visit: Yes (5) Anterior chest wall pain SNOMED Code(s): 294341542 Code(s): R07.89 - OTHER CHEST PAIN Status: Acute Priority: High Current Visit: Yes (6) Headache SNOMED Code(s): 43476790 Code(s): R51.9 - HEADACHE, UNSPECIFIED Status: Acute Priority: Medium Current Visit: Yes Qualifiers: Headache type: tension-type Headache chronicity pattern: acute headache Intractability: not intractable Qualified Code(s): G44.209 - Tension-type headache, unspecified, not intractable - Problem List Review Problem List Initiated/Reviewed/Updated: Yes - Plan Plan:: This is a 44 yo white male with past medical hx/o Impaired Hearing, Hx/o Renal Stone, Childhood Meningitis and Obesity who comes in for lingering anterior chest pain that has been going off and on since January of 2020. Assessment: Acute: Covid-19 Re-infection -Initial infection Dec -Patient is asymptomatic in regards to respiratory symptoms -Unfortunately no test can be done to screen for Covid-19 variants: [place], [place], and [place] -Plan: Continue remdesivir although I think there is little benefit. Stop d examethasone with the increase in anxiety and increase in white count. There is no benefit with negative inflammatory markers, D-dimer, and not on oxygen. Chest wall pain Costochondritis -Worsened in April, but first documentation of an ER visit for chest pain was in January -No family hx/o premature CAD or hx/o GERD -He was seen by multiple providers since January -Was seen in ED 3 days prior to admission; negative for PE and basic cardiac work up -Sent home with Naproxen and Percocet but w/o improvement of symptom -EKG shows sinus tachy cardia; no ST elevation in all leads to suggest pericarditis -Troponin x 2 negative -CT of the chest was negative for any acute findings. Echocardiogram was also normal although it was a technically difficult study. -The repeatedly negative work-up makes it most likely this is a chest wall pain/inflammation. It is most likely something along the lines of costochondritis. Elevated blood pressure without diagnosis of hypertension -Likely secondary to steroids, NSAIDs, anxiety, obesity, and possibly poor technique secondary to his large arms -Treatment not necessary at this time Class II Obese -BMI of 39.4 -Dietary consult for weight management -A1C level ordered Headache -Pain medications as ordered -Likely sequelae of COVID-19 -Does not have history of elevated caffeine consumption Chronic: Impaired Hearing, Hx/o Renal Stone, Childhood Meningitis and Obesity Plan: Continue indomethacin. Continue oxycodone as needed. Decrease Lovenox to 40 mg daily especially since his D-dimer is normal. Continue monitoring oxygenation status. Consider discharge after he completes remdesivir which will be late night. Likely discharge tomorrow after completion of remdisivir.
[2020-06-01] MEDS: REMDESIVIR 100 MG in Sodium Chloride 0.9% 100 ML IV SCH (20:28)
[2020-06-01] MEDS: Zolpidem 5 MG Tab PO PRN (20:42)
[2020-06-01] MEDS: LORazepam 1 MG Tab PO PRN (20:43)
[2020-06-02] MEDS: oxyCODONE 5 MG Tab PO PRN ×2 (05:40→10:31)
[2020-06-02] MEDS: Indomethacin 25 MG Cap PO SCH ×3 (05:41→10:30)
[2020-06-02 08:32] VITALS: BP 153/97; PULSE 83
[2020-06-02] MEDS: Enoxaparin 40 MG/0.4 ML Syringe SUBCUT SCH (08:37)
[2020-06-02] MEDS: Zinc Sulfate 220 MG Cap PO SCH (08:37)
[2020-06-02] MEDS: Gabapentin 300 MG Cap PO SCH (08:37)
--- NOTE | 2020-06-02 09:36 | PCM.DCSUM1 ---
Discharge Summary - Hospital Course HPI Initial Comments: This is a 44 yo white male with past medical hx/o Impaired Hearing, Hx/o Renal Stone, Childhood Meningitis and Obesity who comes in for lingering anterior chest pain that has been going on on an doff since April of this year. He has been evaluated multiple times by numerous providers with benign work up. He states he was in our ED 3 days ago with similar complaints. CT scan was negative and basic cardiac work up was negative. He was sent home with Naproxen and Percocet but w/o improvement of his symptoms. His chest pain is associated with shortness of breath, difficulty catching his air, and pleuritic pain. 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 When he is in town, he lives with other guys in a man camp. He denies having fever of chills but feels fatigue and tired. No signs or symptoms of upper respiratory symptoms. No GI/ complaints. No history of GERD. In ED his O2 sat drops in the upper 80s once. He is otherwise sating adequately in the low 90s on RA. His initial work up shows a CBC remarkable for MCV of 92.7, Neutrophils of 78.3%, Lymphocytes of 17.1%, and Monocytes% of 2.7. His coagulation studies are within normal limits. His chemistry is significant for BS of 129, and LA of 2.5. His troponin x2 is wnl. CKMB and CRP are both wnl. His chest x-ray shows increased pulmonary lung markings. His covid-19 rapid test is positive. Patient symptom is reproducible with manual palpation. He is coming for further management of covid-19 re-infection and evaluation of chest pain. Diagnosis: Stroke: No - Discharge Data Discharge Date: 06/02/20 (Admit date: 05/28/20) Discharge Disposition: Home, Self-Care 01 Condition: Good - Referral to Home Health Primary Care Physician: Lauren Garza MD - Discharge Diagnosis/Problem(s) (1) Costochondritis SNOMED Code(s): 28997961 ICD Code: M94.0 - CHONDROCOSTAL JUNCTION SYNDROME [TIETZE] Status: Acute Priority: High (2) Elevated blood pressure reading SNOMED Code(s): 94516541 ICD Code: R03.0 - ELEVATED BLOOD-PRESSURE READING, W/O DIAGNOSIS OF HTN Status: Acute Priority: Medium (3) Obesity SNOMED Code(s): 559345739, 612844834 ICD Code: E66.9 - OBESITY, UNSPECIFIED Status: Chronic Priority: Medium Qualifiers: Obesity type: unspecified obesity type Obesity classification: adult class 3 (BMI >= 40) Body mass index: BMI 40.0-44.9 (4) COVID-19 SNOMED Code(s): 285933340 ICD Code: U07.1 - COVID-19 Status: Acute Priority: High (5) Anterior chest wall pain SNOMED Code(s): 658537257 ICD Code: R07.89 - OTHER CHEST PAIN Status: Acute Priority: High (6) Headache SNOMED Code(s): 60398380 ICD Code: R51.9 - HEADACHE, UNSPECIFIED Status: Acute Priority: Medium Qualifiers: Headache type: tension-type Headache chronicity pattern: acute headache Intractability: not intractable Qualified Code(s): G44.209 - Tension-type headache, unspecified, not intractable - Patient Summary/Data Consults: Consultations 05/28/20 17:45 Consult to Case Management/Property Insurance Inspector [CONS] Routine Consult to Spiritual Care [CONS] Routine OT Evaluation and Treatment [CONS] Routine PT Evaluation and Treatment [CONS] Routine Respiratory Care Assess and Treatment [CONS] Routine Labs Pending at D/C: None Recommended Follow-up Testing/Procedures: Follow-up with primary care provider within 7-10 days of discharge, sooner if needed. Hospital Course: This is a 44-year-old male who was admitted to our facility for treatment of COVID-19 reinfection and chest pain. Patient reports the chest pain is anterior and left-sided. It is reproducible with palpation. This pain has been ongoing on and off since last April. He reportedly was positive for COVID-19 in December 2019 and was required to retest frequently for work. He was noted to be negative in January and during this visit tested positive again. Initially he was given 6 mg dexamethasone however he was noted to have increased anxiety and leukocytosis with this. His D-dimer and inflammatory markers were negative and he was not requiring any oxygen. He was started on remdesivir and completed 5 days of treatment. Regards to his chest pain he had been seen 3 days prior to admission and was noted to be negative for PE and basic cardiac work-up was negative. He was sent home on Naprosyn and separate there was little improvement of symptoms. Twelve-lead EKG was obtained showing sinus tachycardia with no ST elevation or other signs of ischemia. Troponins were obtained x2 and were negative. Echocardiogram was obtained on 05/29/2020. It was noted to be a technically difficult and limited study as the patient could not tolerate exam. This was interpreted as 1. LVEF, by visual estimation, is 60 to 65%. 2. Normal right ventricular systolic function. 3. Aortic valve is structurally normal and tricuspid. 4. No regional wall motion abnormalities. 5. Technically difficult study. CT scan of the chest was obtained and was negative for any acute findings. There was thought of doing a cardiac stress test however given patient's Covid reinfection it is felt this can be done outpatient after patient follows up with primary care provider. Given the fact that the pain is reproducible and all cardiac work-up has been negative thus far at multiple facilities it is felt that this is costochondritis. He was started on indomethacin 50 mg 3 times daily with meals and was utilizing IV push Dilaudid for pain. This was decreased to oxycodone shortly into his stay. A1c was obtained and was 6.0. Dietary consult was placed and he does visit with our dietitian. He did report a headache throughout his stay and he was advised that this is likely sequelae of his prior COVID-19 infection. He did work with PT and OT who recommended home without services. He reports that he works up in the area but does live in [place]. Follow-up appointment was made with Dr. Garza, whom he has seen in the past. He was told if he leaves town early he should follow-up with somebody locally in [place]. He was instructed to continue to isolate/quarantine through 06/07/2020. He may come off quarantine on 06/08/2020. He was started on gabapentin 300 mg twice daily and this will be prescribed at discharge. He was also started on as needed 5 mg oxycodone and this will be prescribed for 3 more days at discharge. He was prescribed zinc supplementation while here and this will be prescribed at discharge. He was advised not to operate heavy machinery or drive a car while on narcotic pain medications. He was advised that this medication may make him constipated and he can utilize [id number] laxatives for this. He was discharged home today. - Patient Instructions Diet: Diabetic Diet Activity: As Tolerated Showering/Bathing: May Shower Notify Provider of: Fever, Increased Pain, Nausea and/or Vomiting Other/Special Instructions: Follow-up with primary care provider within 7-10 days of discharge. Resume home medications as directed. Take all new medications as prescribed. You may also take tylenol or motrin for your more mild pain. You were prescribed oxycodone for your more severe pain. Take this as prescribed. Attempt to wean off as able. This medication can cause constipation and impare your ability to operate machinery or drive a car. Do not drive while taking it. Continue to utilize your acapella (green tube you blow through) and incentive spirometer (clear/blue device you inhale through) for 1-2 weeks or until symptoms resolve. Continue to isolate/quarantine for a total of 10 days from when you had your positive repeat test. This would mean you may come off of isolation on 06/08/20. At this time we are not recommending repeat COVID-19 testing after being cleared, as you may remain positive but not be contagious. Should symptoms return or worsen contact primary care provider or return to the Emergency Department. - Discharge Plan *PRESCRIPTION DRUG MONITORING PROGRAM REVIEWED*: Not Applicable *COPY OF PRESCRIPTION DRUG MONITORING REPORT IN PATIENT LIZBETH: Not Applicable Prescriptions/Med Rec: Gabapentin [Neurontin] 300 mg PO BID #20 cap oxyCODONE 5 mg PO Q6HR PRN #12 tab PRN Reason: Pain (Severe 7-10) Zinc Sulfate [Zincate] 220 mg PO DAILY #20 cap Home Medications: Home Meds Albuterol [Proventil HFA] 2 puff INH Q4H PRN #1 inhaler 05/25/20 [Rx] tiZANidine [Zanaflex] 4 mg PO TID PRN 05/25/20 [History] Gabapentin [Neurontin] 300 mg PO BID #20 cap 06/02/20 [Rx] Zinc Sulfate [Zincate] 220 mg PO DAILY #20 cap 06/02/20 [Rx] oxyCODONE 5 mg PO Q6HR PRN #12 tab 06/02/20 [Rx] Oxygen Therapy Mode: Room Air Patient Handouts: COVID-19 Frequently Asked Questions, Preventing Type 2 Diabetes Mellitus, Heart-Healthy Eating Plan, [id number], Chest Wall Pain, [id number], Sepsis, Diagnosis, Adult, COVID-19: How to Protect Yourself and Others - CDC, COVID-19: Quarantine vs. Isolation - CDC Forms: ED Department Discharge Referrals: Lauren Garza MD [Primary Care Provider] - 06/09/20 3:00 pm (Hospital follow-up appointment.) - Discharge Summary/Plan Comment DC Time >30 min.: Yes (45 mins ) - General Info Date of Service: 06/02/20 Admission Dx/Problem (Free Text: Admission Diagnosis/Problem Admission Diagnosis/Problem Chest pain Functional Status: Reports: Pain Controlled (mostly ), Tolerating Diet, Ambulating, Urinating, Incentive Spirometry, Other (Acapella ). Denies: New Symptoms - Review of Systems General: Reports: No Symptoms. Denies: Fever, Weakness, Fatigue, Malaise, Chills HEENT: Reports: No Symptoms. Denies: Headaches, Sore Throat Pulmonary: Reports: Pleuritic Chest Pain. Denies: Shortness of Breath, Cough, Sputum, Wheezing Cardiovascular: Reports: Chest Pain (chest wall ). Denies: Palpitations, Dyspnea on Exertion, Edema Gastrointestinal: Reports: No Symptoms. Denies: Abdominal Pain, Constipation, Decreased Appetite, Diarrhea, Difficulty Swallowing, Nausea Genitourinary: Reports: No Symptoms. Denies: Pain Musculoskeletal: Reports: No Symptoms Skin: Reports: No Symptoms. Denies: Cyanosis Neurological: Reports: No Symptoms. Denies: Confusion, Pre-Existing Deficit, Difficulty Walking, Gait Disturbance Psychiatric: Reports: No Symptoms - Patient Data Vitals - Most Recent: Last Vital Signs Temp 98.2 F 06/02/20 07:56 Pulse 83 06/02/20 07:56 Resp 20 06/02/20 07:56 BP 153/97 H 06/02/20 07:56 Pulse Ox 99 06/02/20 07:56 Weight - Most Recent: 315 lb I&O - Last 24 hours: Intake & Output 06/01/20 06/02/20 06/02/20 22:59 06:59 14:59 Intake Total 1420 500 Output Total 1400 2000 Balance 20 -1500 Lab Results - Last 24 hrs: Laboratory Results - last 24 hr 06/02/20 06/02/20 Range/Units 06:08 06:08 WBC 7.23 (4.23-9.07) K/mm3 RBC 4.59 L (4.63-6.08) M/mm3 Hgb 14.4 (13.7-17.5) gm/dl Hct 42.6 (40.1-51.0) % MCV 92.8 H (79.0-92.2) fl MCH 31.4 (25.7-32.2) pg MCHC 33.8 (32.2-35.5) g/dl RDW Std Deviation 41.3 (35.1-43.9) fL Plt Count 241 (163-337) K/mm3 MPV 10.2 (9.4-12.3) fl Neut % (Auto) 54.8 (34.0-67.9) % Lymph % (Auto) 30.2 (21.8-53.1) % Hendricks % (Auto) 10.8 (5.3-12.2) % Eos % (Auto) 2.9 (0.8-7.0) Baso % (Auto) 0.3 (0.1-1.2) % Neut # (Auto) 3.97 (1.78-5.38) K/mm3 Lymph # (Auto) 2.18 (1.32-3.57) K/mm3 Hendricks # (Auto) 0.78 (0.30-0.82) K/mm3 Eos # (Auto) 0.21 (0.04-0.54) K/mm3 Baso # (Auto) 0.02 (0.01-0.08) K/mm3 Magnesium 2.1 (1.8-2.4) mg/dl C-Reactive Protein < 0.2 (<1.0) mg/dL ELVIN Results - Last 24 hrs: Microbiology 05/28/20 19:00 Aerobic Blood Culture - Preliminary Blood - Venous NO GROWTH AFTER 4 DAYS Anaerobic Blood Culture - Preliminary NO GROWTH AFTER 4 DAYS 05/28/20 18:50 Aerobic Blood Culture - Preliminary Blood - Venous - Lab Draw NO GROWTH AFTER 4 DAYS Anaerobic Blood Culture - Preliminary NO GROWTH AFTER 4 DAYS 06/01/20 11:30 Gram Stain - Final Sputum - Expectorated Sputum Culture - Final Med Orders - Current: Current Medications Acetaminophen (Tylenol) 650 mg RECTAL Q4H PRN PRN Reason: Pain (mild 1-3) Albuterol/Ipratropium (Duoneb 3.0-0.5 Mg/3 Ml) 3 ml NEB Q4H PRN PRN Reason: Shortness Of Breath/wheezing Bisacodyl (Dulcolax) 5 mg PO DAILY PRN PRN Reason: Constipation Enoxaparin Sodium (Enoxaparin 40 Mg/0.4 Ml Syringe) 40 mg SUBCUT DAILY [facility] Last Admin: 06/02/20 08:37 Dose: 40 mg Documented by: Gabapentin (Gabapentin 300 Mg Cap) 300 mg PO BID [facility] Last Admin: 06/02/20 08:37 Dose: 300 mg Documented by: Guaifenesin/Phenylephrine HCl (Robitussin Dm) 10 ml PO Q4H PRN PRN Reason: Cough Hydralazine HCl (Hydralazine 20 Mg/Ml Sdv) 20 mg IVPUSH Q4H PRN PRN Reason: Hypertension Promethazine HCl 12.5 mg/ (Sodium Chloride) 50.5 mls @ 100 mls/hr IV Q6H PRN PRN Reason: Nausea/Vomiting Remdesivir 100 mg/ Sodium (Chloride) 100 mls @ 100 mls/hr IV Q24H [facility] Stop: 06/01/20 20:59 Last Admin: 06/01/20 20:28 Dose: 100 mls/hr Documented by: Indomethacin (Indomethacin 25 Mg Cap) 50 mg PO TIDMEALS [facility] Last Admin: 06/02/20 06:23 Dose: Not Given Documented by: Lorazepam (Lorazepam 1 Mg Tab) 1 mg PO Q6H PRN PRN Reason: Anxiety Last Admin: 06/01/20 20:43 Dose: 1 mg Documented by: Ondansetron HCl (Zofran) 4 mg IV Q6H PRN PRN Reason: Nausea/Vomiting Last Admin: 05/31/20 14:54 Dose: 4 mg Documented by: Oxycodone HCl (Oxycodone 5 Mg Tab) 10 mg PO Q4H PRN PRN Reason: Pain Last Admin: 06/02/20 05:40 Dose: 10 mg Documented by: Polyethylene Glycol (Miralax) 17 gm PO DAILY PRN PRN Reason: Constipation Senna/Docusate Sodium (Senna Plus) 1 tab PO BID PRN PRN Reason: Constipation Last Admin: 05/28/20 18:56 Dose: 1 tab Documented by: Senna/Docusate Sodium (Docusate Sodium/Sennosides 50-8.6 Mg Tab) 1 tab PO DAILY [facility] Last Admin: 06/02/20 08:37 Dose: 1 tab Documented by: Sodium Chloride (Saline Flush) 10 ml FLUSH ASDIRECTED [facility] Last Admin: 05/28/20 18:22 Dose: 10 ml Documented by: Tizanidine HCl (Tizanidine 4 Mg Tab) 4 mg PO TID PRN PRN Reason: Spasms Last Admin: 05/30/20 18:37 Dose: 4 mg Documented by: Zinc Sulfate (Zinc Sulfate 220 Mg Cap) 220 mg PO DAILY [facility] Last Admin: 06/02/20 08:37 Dose: 220 mg Documented by: Zolpidem Tartrate (Ambien) 5 mg PO BEDTIME PRN PRN Reason: Sleep Last Admin: 06/01/20 20:42 Dose: 5 mg Documented by: Discontinued Medications Aspirin (Aspirin) 324 mg PO ONETIME ONE Stop: 05/28/20 13:07 Last Admin: 05/28/20 13:13 Dose: 324 mg Documented by: Al Hydroxide/Mg Hydroxide 30 (ml/ Lidocaine HCl 15 ml) 0 ml PO ONETIME ONE Stop: 05/28/20 18:27 Last Admin: 05/28/20 18:50 Dose: 45 ml Documented by: Dexamethasone (Decadron) 6 mg IVPUSH DAILY [facility] Stop: 06/07/20 09:01 Dexamethasone (Dexamethasone) 6 mg PO DAILY [facility] Last Admin: 05/29/20 08:41 Dose: 6 mg Documented by: Enoxaparin Sodium (Lovenox) 40 mg SUBCUT Q12H [facility] Last Admin: 05/29/20 08:32 Dose: 40 mg Documented by: Fentanyl (Sublimaze) 100 mcg IVPUSH ONETIME ONE Stop: 05/28/20 12:05 Last Admin: 05/28/20 12:23 Dose: 100 mcg Documented by: Furosemide (Lasix) 40 mg IVPUSH NOW ONE Stop: 05/28/20 13:08 Last Admin: 05/28/20 13:13 Dose: 40 mg Documented by: Furosemide (Lasix) 20 mg IVPUSH ONETIME ONE Stop: 05/29/20 05:01 Last Admin: 05/29/20 05:39 Dose: 20 mg Documented by: Gabapentin (Neurontin) 600 mg PO ONETIME ONE Stop: 05/28/20 13:36 Last Admin: 05/28/20 13:56 Dose: 600 mg Documented by: Hydralazine HCl (Hydralazine 20 Mg/Ml Sdv) 20 mg IVPUSH Q4H PRN PRN Reason: Hypertension Hydromorphone HCl (Dilaudid) 1 mg IVPUSH ONETIME ONE Stop: 05/28/20 10:06 Last Admin: 05/28/20 10:17 Dose: 1 mg Documented by: Hydromorphone HCl (Dilaudid) 1 mg IVPUSH ONETIME ONE Stop: 05/28/20 10:45 Last Admin: 05/28/20 10:55 Dose: 1 mg Documented by: Hydromorphone HCl (Dilaudid) 1 mg IVPUSH ONETIME ONE Stop: 05/28/20 12:57 Last Admin: 05/28/20 13:03 Dose: 1 mg Documented by: Hydromorphone HCl (Dilaudid) 1.5 mg IVPUSH ONETIME ONE Stop: 05/28/20 14:23 Last Admin: 05/28/20 14:29 Dose: 1.5 mg Documented by: Hydromorphone HCl (Dilaudid) 0.5 mg IVPUSH Q2H PRN PRN Reason: Pain (severe 7-10) Hydromorphone HCl (Dilaudid) 2 mg IVPUSH Q2H PRN PRN Reason: Pain (severe 7-10) Last Admin: 05/28/20 19:26 Dose: 2 mg Documented by: Hydromorphone HCl (Hydromorphone 1 Mg/Ml Syringe) 2 mg IVPUSH Q2H PRN PRN Reason: Pain (severe 7-10) Last Admin: 05/30/20 09:21 Dose: 2 mg Documented by: Dextrose/Sodium Chloride (Dextrose 5%-Normal Saline) 1,000 mls @ 500 mls/hr IV ASDIRECTED [facility] Last Admin: 05/28/20 20:05 Dose: 500 mls/hr Documented by: Nitroglycerin/Dextrose (Nitroglycerin 25 Mg/D5w 250 Ml) 25 mg in 250 mls @ 6 mls/hr IV TITRATE [facility]; Protocol Last Admin: 05/28/20 13:16 Dose: 10 mcg/min, 6 mls/hr Documented by: Sodium Chloride (Normal Saline) 100 mls @ 60 mls/hr IV ASDIRECTED [facility] Sodium Chloride (Normal Saline) 1,000 mls @ 999 mls/hr IV ONETIME ONE Stop: 05/28/20 19:27 Last Admin: 05/28/20 18:36 Dose: 999 mls/hr Documented by: Remdesivir 200 mg/ Sodium (Chloride) 250 mls @ 250 mls/hr IV ONETIME ONE Stop: 05/28/20 20:59 Last Admin: 05/28/20 22:04 Dose: 250 mls/hr Documented by: Sodium Chloride (Normal Saline) 1,000 mls @ 125 mls/hr IV ASDIRECTED [facility] Last Admin: 05/29/20 08:33 Dose: 125 mls/hr Documented by: Ibuprofen (Motrin) 800 mg PO ONETIME ONE Stop: 05/28/20 13:36 Last Admin: 05/28/20 13:56 Dose: 800 mg Documented by: Insulin Human Lispro (Humalog) 0 unit SUBCUT TIDAC [facility]; Protocol Last Admin: 05/29/20 11:45 Dose: Not Given Documented by: Iopamidol (Isovue-370 (76%)) 100 ml IVPUSH ONETIME ONE Stop: 05/28/20 18:00 Last Admin: 05/28/20 18:21 Dose: 100 ml Documented by: Ketorolac Tromethamine (Toradol) 30 mg IVPUSH ONETIME [facility] Last Admin: 05/28/20 10:16 Dose: 30 mg Documented by: Ketorolac Tromethamine (Toradol) 30 mg IV Q6H PRN PRN Reason: Pain (moderate 4-6) Last Admin: 05/28/20 18:45 Dose: 30 mg Documented by: Lorazepam (Ativan) 0.5 mg IV ONETIME ONE Stop: 05/28/20 10:45 Last Admin: 05/28/20 10:56 Dose: 0.5 mg Documented by: Lorazepam (Ativan) 1 mg IV ONETIME ONE Stop: 05/28/20 13:35 Last Admin: 05/28/20 13:56 Dose: 1 mg Documented by: Lorazepam (Ativan) 1 mg IV Q6H PRN PRN Reason: Anxiety Last Admin: 05/29/20 11:10 Dose: 1 mg Documented by: Methylprednisolone Sodium Succinate (Solu-Medrol) 125 mg IVPUSH ONETIME ONE Stop: 05/28/20 10:07 Last Admin: 05/28/20 10:16 Dose: 125 mg Documented by: Naproxen (Naprosyn) 440 mg PO BID [facility] Last Admin: 05/29/20 01:51 Dose: Not Given Documented by: Naproxen (Naprosyn) 500 mg PO BID [facility] Last Admin: 05/29/20 08:41 Dose: 500 mg Documented by: Oxycodone HCl (Oxycodone 5 Mg Tab) 5 mg PO Q6HR PRN PRN Reason: Pain Last Admin: 05/30/20 10:20 Dose: 5 mg Documented by: Regadenoson (Lexiscan) 0.4 mg IVPUSH ONETIME ONE Stop: 05/29/20 07:52 Last Admin: 05/29/20 10:26 Dose: Not Given Documented by: - Exam Quality Assessment: Reports: DVT Prophylaxis. Denies: Supplemental Oxygen, Urine Catheter General: Reports: Alert, Oriented, Cooperative, No Acute Distress HEENT: Reports: Pupils Equal, Pupils Reactive, Mucous Membr. Moist/[place] Neck: Reports: Supple, Trachea Midline Lungs: Reports: Clear to Auscultation, Normal Respiratory Effort, Decreased Breath Sounds Cardiovascular: Reports: Regular Rate, Regular Rhythm GI/Abdominal Exam: Normal Bowel Sounds, Soft, Non-Tender, No Distention (Male) Exam: Deferred Rectal (Males) Exam: Deferred Back Exam: Reports: Normal Inspection, Full Range of Motion Extremities: Normal Inspection, Normal Range of Motion, Non-Tender, No Pedal Edema, Normal Capillary Refill Skin: Reports: Warm, Dry, Intact Neurological: Reports: No New Focal Deficit Psy/Mental Status: Reports: Alert, Normal Affect, Normal Mood
--- NOTE | 2020-06-06 13:22 | PCM.EKG ---
#1 Interpretation EKG Date: 05/29/20 Time: 08:05 Rhythm: NSR Rate (Beats/Min): 97 [place]: Normal P-Wave: Present QRS: Normal ST-T: Normal QT: Normal Comparison: NA - No Prior EKG EKG Interpretation Comments: Normal EKG
== END 2020-06-02 11:17 | disposition home or self-care (01) | DRG 720 ==
LOC: JD.ED 09:04 → JD.MS 15:48
PROVIDERS: ADMIT Internal Medicine; ATTEND Internal Medicine
PROC: XW033E5 Introduction of Remdesivir Anti-infective into Peripheral Vein, Percutaneous Approach, New Technology Group 5 (ICD-10-PCS; principal; 2020-05-28)
DX: A41.89 Other specified sepsis (principal); U07.1 COVID-19; M94.0 Chondrocostal junction syndrome [Tietze]; E66.9 Obesity, unspecified; G44.209 Tension-type headache, unspecified, not intractable; F41.9 Anxiety disorder, unspecified; H91.90 Unspecified hearing loss, unspecified ear; R12 Heartburn; R03.0 Elevated blood-pressure reading, without diagnosis of hypertension; Z87.442 Personal history of urinary calculi; Z90.89 Acquired absence of other organs; Z68.41 Body mass index [BMI] 40.0-44.9, adult; Z79.899 Other long term (current) drug therapy; Z79.52 Long term (current) use of systemic steroids
CPT/HCPCS: 36415; 71045; 71045-26; 71260; 71260-26; 80053; 80061; 80076; 81001; 82306; 82550; 82553; 82728; 82962; 83036; 83605; 83615; 83735; 83880; 84145; 84439; 84443; 84484; 85025; 85379; 85610; 85652; 85730; 86140; 87040; 87205; 93005; 93010; 93306; 94762; 96365; 96374; 96375; 96376; 97165-GO; 99222; 99232; 99239; 99285; 99285-25; A9270-GY; J1170; J1650; J1885; J1940; J2060; J2405; J2930; J3010; J3490; J7030; J7042; J7050; J8540; Q9967; U0002